=== PATIENT | female | born 1945 | race Caucasian/White ===

== ENCOUNTER 2016-07-19 09:17 | Inpatient (IN) ==
--- NOTE | 2016-07-19 13:12 | Cardiology History & Physical ---
Date of Encounter: 07/19/16 Time of Encounter: 13:07 Assessment and Plan (1) PAF (paroxysmal atrial fibrillation) Current Visit: No Status: Acute Direct admission for sotalol therapy. Check BMP and magnesium. Last TTE 11/18/15- EF 60%, moderate LVH, indeterminate diastolic function. Bioprosthetic mitral valve with moderate mitral stenosis, Mild TR of tricuspid valve repair. Bioprosthetic aortic valve not well visualized. Moderate aortic stenosis. Mild aortic regurgitation. Mild MR. Baseline EKG shows atrial fibrillation rate controlled QT/QTc, 386/423, QRS 106. If labs are ok will start sotalol as planned. On coumadin therapy. Check INR. Plan for DCCV after 5th dose if she has persistent afib. (2) VHD (valvular heart disease) Current Visit: No Status: Acute H/o aortic and mitral valve replacement with bioprosthetic valves and tricuspid valve repair one year ago at [facility]. See previous TTE above. (3) CAD (coronary artery disease) Current Visit: No Status: Chronic S/p PCI one year ago at [facility] per pt. Continue asa and statin. Metoprolol previously stopped d/t hypotension according to records. Denies chest pain. Qualifiers: Coronary Disease-Associated Artery/Lesion type: [place] artery [place] vs. transplanted heart: [place] heart Associated angina: angina presence unspecified Qualified Code(s): I25.10 - Atherosclerotic heart disease of [place] coronary artery without angina pectoris History of Present Illness Chief complaint: palpitations HPI: Ms. 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 She c/o recurrent palpitations. A recent device check showed multiple high heart rates despite adding cardizem. She was recommended to start sotalol if her kidney function and electrolytes are normal. Past Med Surg Social Fam HX - Past Medical History Medical history: atrial fibrillation, cancer, cardiomyopathy, CHF, coronary artery disease, diabetes, GI bleed, hyperlipidemia, malignancy, peripheral artery disease, thyroid disease, valvular heart disease Psychiatric history: anxiety - Past Surgical History Surgical History: angioplasty/stent, breast surgery, cancer surgery, carotid endarterectomy, cataract, colectomy, coronary bypass (CABG), heart valve replacement, hysterectomy, pacemaker/AICD, other - Social History Smoking Status: Former smoker Smokeless Tobacco Status: No Alcohol use: none Drug use: none - Family History Mother Adopted: No Family Member Ethnicity: Unknown Living Status: Hx Family Cardiac Disorders: Yes (NC) Hx Family Endocrine Disorder: Yes (DM) Father Living Status: Hx Family Cardiac Disorders: Yes Medications and Allergies Alprazolam [Xanax] 1 mg PO TID PRN 11/29/14 [History] Bupropion HCl [Wellbutrin] 75 mg PO BID 11/29/14 [History] Levothyroxine [Synthroid] 50 mcg PO 0630 11/29/14 [History] Pravastatin Sodium [Pravachol] 40 mg PO HS 11/29/14 [History] Aspirin Enteric Coated [Aspirin EC] 162 mg PO DAILY 11/17/15 [History] Benzonatate [Tessalon] 100 mg PO TID PRN 11/17/15 [History] Furosemide [Lasix] 40 mg PO BID 11/17/15 [History] Multivitamin [Multi-Day Vitamins] 1 each PO DAILY 11/17/15 [History] Ondansetron [Zofran] 8 mg PO Q6H PRN 11/17/15 [History] Oxycodone HCl 10 mg PO Q4H PRN 11/17/15 [History] Potassium Chloride [K-Tab ER] 10 meq PO BID 11/17/15 [History] Sennosides [Senna] 8.6 mg PO HS 11/17/15 [History] Digoxin [Lanoxin] 0.125 mg PO DAILY tablet 11/19/15 [Rx] Diltiazem HCl [Diltiazem 24Hr ER] 120 mg PO DAILY 07/19/16 [History] Gabapentin [Neurontin] 300 mg PO HS 07/19/16 [History] Isosorbide MONOnitrate [Isosorbide Mononitrate] 30 mg PO DAILY 07/19/16 [History ] Ropinirole [Requip] 1 mg PO HS 07/19/16 [History] Warfarin [Coumadin] 7.5 mg PO 1800 07/19/16 [History] Allergies ciprofloxacin [From Cipro] Allergy (Verified 11/29/14 17:30) Hives acetaminophen [From Percocet] Adverse Reaction (Verified 11/30/14 06:27) Gastrointestinal Upset All Systems Review: A 10-system review of systems was performed and is negative for pertinent findings except as documented above in the HPI. Physical Examination Vital Signs, Last 4 Hours Temp Pulse Resp BP Pulse Ox 07/19/16 12:40 80 07/19/16 12:21 97.9 F 87 16 129/79 99 General: Conversant, No Apparent Distress HEENT: Atraumatic, Normocephaly, Mucus Membranes Moist Neck: No JVD, Normal carotid pulses Cardiac: Other (irregularly irregular) Lungs: Normal Breath Sounds, No Wheeze, Rales, Rhonchi Neuro: Alert and responsive, No focal deficits noted Abdomen: Soft, Non-Tender Skin: No rashes noted on visualized skin Musculoskeletal: No Chest Wall Tenderness Extremities: No Clubbing, No Cyanosis, No Edema, Normal Pulses Results 07/19/16 13:42 07/19/16 13:42 - Imaging and Cardiology Echo: report reviewed - EKG Interpretation EKG results cardiology: personally reviewed (atrial fibrillation, QT/QTc, 386/ 423, QRS 106)
[2016-07-19 13:52] LABS: Basophils % 0.6 %; Eosinophils # 0.1 K/mcL (0.0-0.6); Eosinophils % 1.3 %; Hematocrit 37.6 % (35.3-44.9); Hemoglobin 10.9 g/dL (11.5-15.4); Immature Granulocytes % 0.3 % (0-4); Lymphocytes # 0.8 K/mcL (0.6-4.6); Lymphocytes % 11.4 %; Mean Corpuscular Hemoglobin 20.6 pg (28.0-33.3); Mean Corpuscular Volume 71.2 fL (83.0-100.0); Mean Platelet Volume 9.8 fL (9.4-12.4); Monocytes # 0.7 K/mcL (0.0-1.3); Monocytes % 9.3 %; Neutrophils # 5.5 K/mcL (1.6-8.9); Platelet Count 283 K/mcL (140-400); Red Blood Count 5.28 M/mcL (3.82-4.97); Red Cell Distribution Width 18.9 % (11.5-14.5); Segmented Neutrophils % 77.1 %
[2016-07-19] MEDS ORDERED: Benzonatate 100 MG CAPSULE PO PRN (13:52)
[2016-07-19] MEDS ORDERED: Ondansetron ODT 4 MG TAB.RAPDIS PO PRN (13:52)
[2016-07-19 13:59] LABS: INR 2.6; Prothrombin Time 28.6 Seconds (9.4-12.1)
[2016-07-19 14:05] LABS: BUN/Creatinine Ratio 43 (6-26); Blood Urea Nitrogen 35 mg/dL (7-20); Calcium 9.6 mg/dL (8.6-10.8); Carbon Dioxide 27 mEq/L (19-29); Chloride 104 mEq/L (98-109); Glucose 117 mg/dL (70-99); Osmolality,Calculated 297 (280-300); Potassium 3.6 mEq/L (3.5-4.5); Sodium 139 mEq/L (136-145); eGFR For African Americans > 60 (> 60); eGFR For Non-African Americans > 60 (> 60)
[2016-07-19] MEDS ORDERED: Naloxone 0.4 MG/ML INJ IVP PRN (14:52)
[2016-07-19] MEDS ORDERED: Ondansetron ODT 4 MG TAB.RAPDIS SL PRN ×2 (15:40→15:56)
[2016-07-19] MEDS: *HR* OxyCODONE Immed Rel 5 MG TABLET PO PRN (15:41)
[2016-07-19] MEDS: *HR* Warfarin 7.5 MG TABLET PO SCH (17:48)
[2016-07-19] MEDS: Furosemide 40 MG TABLET PO SCH (17:48)
[2016-07-19] MEDS ORDERED: Furosemide 40 MG TABLET PO SCH (21:00)
[2016-07-19] MEDS: Gabapentin 300 MG CAPSULE PO SCH (21:07)
[2016-07-19] MEDS: rOPINIRole 1 MG TABLET PO SCH (21:07)
[2016-07-19] MEDS: Sennosides 8.6 MG TABLET PO SCH (21:07)
[2016-07-19] MEDS: ALPRAZolam 1 MG TABLET PO PRN (21:10)
[2016-07-20 04:48] LABS: INR 2.9; Prothrombin Time 32.8 Seconds (9.4-12.1)
[2016-07-20] MEDS: Diltiazem CD (24hr) 120 MG CAPSULE PO SCH (07:23)
[2016-07-20] MEDS: Aspirin Enteric Coated 81 MG Tablet PO SCH (07:23)
[2016-07-20] MEDS: Furosemide 40 MG TABLET PO SCH ×2 (07:23→15:47)
[2016-07-20] MEDS: Multivit/Ca/Min/Fe/FA 1 TAB TABLET PO SCH (07:23)
[2016-07-20] MEDS: Isosorbide MONOnitrate (24 HR) 30 MG TAB.ER.24H PO SCH (07:23)
--- NOTE | 2016-07-20 08:26 | Electrocardiograph Report ---
[place] [address] Test Date: 2016-07-19 Pat Name: Abbey Monte Department: 110 Room: 2N03 Gender: F Treasury Assistant: MICHAEL : 1945 Requested By: Royce Hadley Order Number: [id number] Reading MD: Patel Broderick MD Measurements Intervals [place] Rate: 81 P: RI: 0 QRS: 40 QRSD: 106 T: 27 QT: 386 QTc: 423 Interpretive Statements ATRIAL FIBRILLATION NONSPECIFIC ST \T\ T-WAVE ABNORMALITY Electronically Signed On 07-20-2016 8:24:18 EDT by Patel Broderick MD
[2016-07-20] MEDS ORDERED: *HR* Digoxin 0.125 MG TABLET PO SCH (09:00)
--- NOTE | 2016-07-20 10:54 | Cardiology Progress Note ---
Date of Encounter: 07/20/16 Time of Encounter: 10:51 Assessment and Plan (1) PAF (paroxysmal atrial fibrillation) Current Visit: No Status: Acute Direct admission for sotalol therapy. BMP and magnesium ok. Last TTE 11/18/15- EF 60%, moderate LVH, indeterminate diastolic function. Bioprosthetic mitral valve with moderate mitral stenosis, Mild TR of tricuspid valve repair. Bioprosthetic aortic valve not well visualized. Moderate aortic stenosis. Mild aortic regurgitation. Mild MR. Baseline EKG shows atrial fibrillation rate controlled QT/QTc, 386/423, QRS 106. EKG 07/20/16 QT/QTc 386/423, QRS 106, HR 81 bpm, atrial paced. Underlying SR. Received 2 doses of Sotalol. Will require 5 doses with monitoring. Converted to SR over night with intermittent atrial and ventricular pacing. Avg HR76 bpm. On coumadin therapy. INR 2.9 (2) VHD (valvular heart disease) Current Visit: No Status: Acute H/o aortic and mitral valve replacement with bioprosthetic valves and tricuspid valve repair one year ago at [facility]. See previous TTE above. (3) CAD (coronary artery disease) Current Visit: No Status: Chronic S/p PCI one year ago at [facility] per pt. Continue asa and statin. Metoprolol previously stopped d/t hypotension according to records. Denies chest pain. Qualifiers: Coronary Disease-Associated Artery/Lesion type: [place] artery [place] vs. transplanted heart: [place] heart Associated angina: angina presence unspecified Qualified Code(s): I25.10 - Atherosclerotic heart disease of [place] coronary artery without angina pectoris Discussion w patient/family: The assessment and plan as outlined above was discussed with the patient and/or family members who expressed understanding and agreement. All questions were answered. Thank you for involving us in the care of your patient. Please call with any questions. Subjective Principal diagnosis: 07/20/16 Interval history: No new complaints. Objective Vital Signs, Last 4 Hours Temp Pulse Resp BP 07/20/16 08:34 98.7 F 64 18 119/55 07/20/16 07:30 60 General: Conversant, No Apparent Distress HEENT: Atraumatic, Normocephaly, Mucus Membranes Moist Neck: No JVD, Normal carotid pulses Cardiac: Reg Rate and Rhythm, Normal S1 and S2, No Murmur, Other (atrial paced on telemetry.) Lungs: Normal Breath Sounds, No Wheeze, Rales, Rhonchi Neuro: Alert and responsive, No focal deficits noted Abdomen: Soft, Non-Tender Skin: No rashes noted on visualized skin Musculoskeletal: No Chest Wall Tenderness Extremities: No Clubbing, No Cyanosis, No Edema, Normal Pulses Results 07/19/16 13:42 07/19/16 13:42 Lab Results 07/19/16 07/19/16 07/19/16 13:42 13:42 13:42 WBC 7.1 Hgb 10.9 L Hct 37.6 Plt Count 283 INR 2.6 Sodium 139 Potassium 3.6 Chloride 104 Carbon Dioxide 27 BUN 35 H Creatinine 0.81 Glucose 117 H Calcium 9.6 Magnesium 2.0 07/20/16 04:40 WBC Hgb Hct Plt Count INR 2.9 Sodium Potassium Chloride Carbon Dioxide BUN Creatinine Glucose Calcium Magnesium - Imaging and Cardiology Echo: report reviewed - EKG Interpretation EKG results cardiology: personally reviewed, other (Atrial flutter to SR to atrial pacing.) - VTE Reasons for not Prescribing Prophylaxis: Not indicated-Anticoagulated or INR therapeutic Consult Discharge Plan - Plan Referrals: Geetha Maharaj, COMMERCIAL ILLUSTRATOR [Primary Care Provider] -
[2016-07-20] MEDS: *HR* OxyCODONE Immed Rel 5 MG TABLET PO PRN (15:46)
[2016-07-20] MEDS: *HR* Warfarin 7.5 MG TABLET PO SCH (16:51)
[2016-07-20] MEDS: Sennosides 8.6 MG TABLET PO SCH (21:26)
[2016-07-20] MEDS: ALPRAZolam 1 MG TABLET PO PRN (21:26)
[2016-07-20] MEDS: rOPINIRole 1 MG TABLET PO SCH (21:26)
[2016-07-20] MEDS: Gabapentin 300 MG CAPSULE PO SCH (21:27)
[2016-07-21 03:47] LABS: INR 2.8; Prothrombin Time 31.1 Seconds (9.4-12.1)
[2016-07-21] MEDS: Isosorbide MONOnitrate (24 HR) 30 MG TAB.ER.24H PO SCH (08:26)
[2016-07-21] MEDS: Aspirin Enteric Coated 81 MG Tablet PO SCH (08:26)
[2016-07-21] MEDS: Furosemide 40 MG TABLET PO SCH ×2 (08:26→16:57)
[2016-07-21] MEDS: Diltiazem CD (24hr) 120 MG CAPSULE PO SCH (08:26)
[2016-07-21] MEDS: Multivit/Ca/Min/Fe/FA 1 TAB TABLET PO SCH (08:27)
--- NOTE | 2016-07-21 09:11 | Electrocardiograph Report ---
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
[2016-07-21 10:28] LABS: BUN/Creatinine Ratio 50 (6-26); Calcium 8.9 mg/dL (8.6-10.8); Carbon Dioxide 24 mEq/L (19-29); Chloride 101 mEq/L (98-109); Glucose 227 mg/dL (70-99); Magnesium 1.9 mg/dL (1.6-2.6); Osmolality,Calculated 302 (280-300); Potassium 3.4 mEq/L (3.5-4.5); Sodium 135 mEq/L (136-145); eGFR For African Americans > 60 (> 60); eGFR For Non-African Americans 50 (> 60)
[2016-07-21 10:29] LABS: Blood Urea Nitrogen 55 mg/dL (7-20)
[2016-07-21] MEDS: *HR* OxyCODONE Immed Rel 5 MG TABLET PO PRN (11:16)
--- NOTE | 2016-07-21 11:18 | Event Note ---
Date of Encounter: 07/21/16 Time of Encounter: 09:45 - Cardiology Event Note Telemetry review shows two episodes of rate controlled atrial fibrillation, otherwise she is atrial to AV paced on telemetry. Appears to SR underlying. Pt ambulated for [address] with HR increased from 60 bpm to 85 bpm. She remained atrial paced. A device check was completed and it shows three atrial high rates yesterday. I will review further with Dr. Drummond to assess underlying rhythm. Possible discharge later today vs medication adjustment. EKG this morning shows atrial pacing. Underlying rhythm is irregular, possible atrial fibrillation.
--- NOTE | 2016-07-21 11:58 | Cardiology Progress Note ---
Date of Encounter: 07/21/16 Time of Encounter: 11:56 Assessment and Plan (1) PAF (paroxysmal atrial fibrillation) Current Visit: No Status: Acute Direct admission for sotalol therapy. Last TTE 11/18/15- EF 60%, moderate LVH, indeterminate diastolic function. Bioprosthetic mitral valve with moderate mitral stenosis, Mild TR of tricuspid valve repair. Bioprosthetic aortic valve not well visualized. Moderate aortic stenosis. Mild aortic regurgitation. Mild MR. Baseline EKG shows atrial fibrillation rate controlled QT/QTc, 386/423, QRS 106. EKG 07/20/16 QT/QTc 386/423, QRS 106, HR 81 bpm, atrial paced. Underlying SR. EKG 07/21/16 QT/QTc 440/445, QRS 105, HR 62 bpm, atrial paced, Irregular, possible afib. Received 4 doses of Sotalol. Device check completed to asses underlying rhythm. PAF seen over last 24 hours. Pt admits to palpitations. Avg hr 89 bpm over 24 hours. Predominantly atrial paced. Discussed with Dr. Drummond, we will increase Sotalol to 120 mg Q 12 hr and check device check in am. Digoxin discontinued. On coumadin therapy. INR 2.8 Replace potassium and magnesium. Will re-check in am. (2) VHD (valvular heart disease) Current Visit: No Status: Acute H/o aortic and mitral valve replacement with bioprosthetic valves and tricuspid valve repair one year ago at [facility]. See previous TTE above. (3) CAD (coronary artery disease) Current Visit: No Status: Chronic S/p PCI one year ago at [facility] per pt. Continue asa and statin. Metoprolol previously stopped d/t hypotension according to records. Denies chest pain. Qualifiers: Coronary Disease-Associated Artery/Lesion type: [place] artery [place] vs. transplanted heart: [place] heart Associated angina: angina presence unspecified Qualified Code(s): I25.10 - Atherosclerotic heart disease of [place] coronary artery without angina pectoris (4) Hypotension Current Visit: Yes Status: Acute C/o feeling tired. B/p 85/56, recheck showed b/p at 101/60. Denies dizziness. Decrease lasix to 20 mg BID from 40 mg BID. Appears to be dry on exam. If b/p drops again we will give IV fluid. Qualifiers: Hypotension type: hypotension due to drug Qualified Code(s): I95.2 - Hypotension due to drugs Discussion w patient/family: The assessment and plan as outlined above was discussed with the patient and/or family members who expressed understanding and agreement. All questions were answered. Thank you for involving us in the care of your patient. Please call with any questions. Subjective Principal diagnosis: 07/20/16 Interval history: C/o leg cramps last night. Admits to palpitations overnight with afib. Objective Vital Signs, Last 4 Hours Temp Pulse Resp BP Pulse Ox 07/21/16 11:35 97.5 F L 60 16 100/38 96 07/21/16 11:17 68 07/21/16 08:29 62 General: Conversant, No Apparent Distress HEENT: Atraumatic, Normocephaly, Mucus Membranes Moist Neck: No JVD, Normal carotid pulses Cardiac: Reg Rate and Rhythm, Normal S1 and S2, No Murmur Lungs: Normal Breath Sounds, No Wheeze, Rales, Rhonchi Neuro: Alert and responsive, No focal deficits noted Abdomen: Soft, Non-Tender Skin: No rashes noted on visualized skin Musculoskeletal: No Chest Wall Tenderness Extremities: No Clubbing, No Cyanosis, No Edema, Normal Pulses Results 07/19/16 13:42 07/21/16 10:11 Lab Results 07/21/16 07/21/16 03:30 10:11 INR 2.8 Sodium 135 L Potassium 3.4 L Chloride 101 Carbon Dioxide 24 BUN 55 H D Creatinine 1.09 Glucose 227 H Calcium 8.9 Magnesium 1.9 - EKG Interpretation EKG results cardiology: personally reviewed - VTE Reasons for not Prescribing Prophylaxis: Not indicated-Anticoagulated or INR therapeutic Consult Discharge Plan - Plan Referrals: Geetha Maharaj MEMORIAL MARKER DESIGNER [Primary Care Provider] - 07/23/16 1:00 pm (YOUR APPOINTMENT TIME HAS CHANGED FROM 10:00AM TO 1:00PM)
[2016-07-21] MEDS ORDERED: Magnesium Sulfate 2 GM in D5% in Water 100 ML IVPB ONE (13:06)
[2016-07-21] MEDS: *HR* Warfarin 7.5 MG TABLET PO SCH (16:58)
[2016-07-21] MEDS: Sennosides 8.6 MG TABLET PO SCH (20:09)
[2016-07-21] MEDS: rOPINIRole 1 MG TABLET PO SCH (20:10)
[2016-07-21] MEDS: Gabapentin 300 MG CAPSULE PO SCH (20:10)
--- NOTE | 2016-07-21 21:03 | Electrocardiograph Report ---
[place] [address] Test Date: 2016-07-21 Pat Name: Abbey Monte Department: 110 Room: 2N03 Gender: F Remote Sensing Program Manager: FARRAH : 1945 Requested By: Royce Hadley Order Number: [id number] Reading MD: Kel Amato MD Measurements Intervals [place] Rate: 62 P: 236 NC: 257 QRS: 71 QRSD: 105 T: 131 QT: 440 QTc: 445 Interpretive Statements ELECTRONIC ATRIAL PACEMAKER FIRST DEGREE AV BLOCK PROBABLE LEFT VENTRICULAR HYPERTROPHY NONSPECIFIC ST \T\ T WAVE ABNORMALITIES (POSSIBLY SECONDARY TO LVH) Electronically Signed On 07-21-2016 21:02:17 EDT by Kel Amato MD
[2016-07-21] MEDS: ALPRAZolam 1 MG TABLET PO PRN (21:59)
[2016-07-22 05:21] LABS: BUN/Creatinine Ratio 71 (6-26); Blood Urea Nitrogen 59 mg/dL (7-20); Calcium 8.7 mg/dL (8.6-10.8); Carbon Dioxide 23 mEq/L (19-29); Chloride 104 mEq/L (98-109); Glucose 124 mg/dL (70-99); Magnesium 2.2 mg/dL (1.6-2.6); Osmolality,Calculated 300 (280-300); Potassium 3.7 mEq/L (3.5-4.5); Sodium 136 mEq/L (136-145); eGFR For African Americans > 60 (> 60); eGFR For Non-African Americans > 60 (> 60)
[2016-07-22] MEDS: Diltiazem CD (24hr) 120 MG CAPSULE PO SCH (09:25)
[2016-07-22] MEDS: Aspirin Enteric Coated 81 MG Tablet PO SCH (09:25)
[2016-07-22] MEDS: Furosemide 40 MG TABLET PO SCH (09:26)
[2016-07-22] MEDS: Isosorbide MONOnitrate (24 HR) 30 MG TAB.ER.24H PO SCH (09:26)
[2016-07-22] MEDS: Multivit/Ca/Min/Fe/FA 1 TAB TABLET PO SCH (09:27)
[2016-07-22] MEDS: *HR* OxyCODONE Immed Rel 5 MG TABLET PO PRN (09:36)
--- NOTE | 2016-07-22 11:20 | Discharge Summary ---
Date of Encounter: 07/21/16 Time of Encounter: 08:30 - Discharge Diagnosis (1) Atrial fibrillation Priority: Primary Status: Chronic Comments: Per cardiololgy: -Status post direct admission for sotalol administration. Qualifiers: Atrial fibrillation type: paroxysmal Qualified Code(s): I48.0 - Paroxysmal atrial fibrillation - Discharge Medications Prescriptions: Diltiazem CD (24hr) [Cardizem CD] 120 mg PO DAILY #30 cap.er.24h Sotalol [Betapace] 120 mg PO Q12H #60 tablet Home Medications: Alprazolam [Xanax] 1 mg PO TID PRN 11/29/14 [History] Bupropion HCl [Wellbutrin] 75 mg PO BID 11/29/14 [History] Pravastatin Sodium [Pravachol] 40 mg PO HS 11/29/14 [History] Benzonatate [Tessalon] 100 mg PO TID PRN 11/17/15 [History] Furosemide [Lasix] 40 mg PO BID 11/17/15 [History] Multivitamin [Multi-Day Vitamins] 1 each PO DAILY 11/17/15 [History] Ondansetron [Zofran] 8 mg PO Q6H PRN 11/17/15 [History] Potassium Chloride [K-Tab ER] 10 meq PO BID 11/17/15 [History] Sennosides [Senna] 8.6 mg PO HS 11/17/15 [History] Gabapentin [Neurontin] 300 mg PO HS 07/19/16 [History] Isosorbide MONOnitrate (24 HR) [Imdur] 15 mg PO DAILY 07/19/16 [History] Levothyroxine [Synthroid] 75 mcg PO 0630 07/19/16 [History] OxyCODONE Immed Rel [Roxicodone 5 MG] 10 mg PO Q6HR PRN 07/19/16 [History] Ropinirole [Requip] 1 mg PO HS 07/19/16 [History] Warfarin [Coumadin] 7.5 mg PO 1800 07/19/16 [History] Aspirin Enteric Coated [Aspirin EC] 81 mg PO DAILY tablet. 07/22/16 [Rx] Diltiazem CD (24hr) [Cardizem CD] 120 mg PO DAILY #30 cap.er.24h 07/22/16 [Rx] Sotalol [Betapace] 120 mg PO Q12H #60 tablet 07/22/16 [Rx] Allergies/Adverse Reactions: Allergies ciprofloxacin [From Cipro] Allergy (Verified 11/29/14 17:30) Hives acetaminophen [From Percocet] Adverse Reaction (Verified 11/30/14 06:27) Gastrointestinal Upset Procedures/tests Complete & Pending: Procedures Performed prior 72 hours Category Date Time Status EKG [ECG 12 lead ECG] [ECG] AM 0600 Y 07/20/16 06:00 Completed EKG [ECG 12 lead ECG] [ECG] AM 0600 Y 07/21/16 06:00 Completed EKG [ECG 12 lead ECG] [ECG] Routine Y 07/21/16 08:35 Completed EKG [ECG 12 lead ECG] [ECG] Stat Y 07/19/16 13:14 Completed Date of admission: 07/19/16 11:31 Primary care physician: Geetha Maharaj CNP Consults: 07/19/16 13:53 Consult to Invasive Line Access Team [CONS] Routine Reason for Consult: LIMITED ACCESS Line Type: EPIV 07/21/16 15:49 Consult to Commercial Sales Consultant [CONS] Routine Reason for SW Consult: Power of floor coverings salesperson papers. Discharging clinician: Gato Mcclain Anticipated date of discharge: 07/22/16 - Patient Status Disposition: Home, Self-Care Condition: Good Functional capacity at discharge: independent ambulation Overall status at discharge: patient is back to baseline - Discharge Instructions Follow Up With: Ammon London MD [Partnered Physician] - 08/11/16 11:30 am Geetha Maharaj CNP [Primary Care Provider] - 07/23/16 1:00 pm (YOUR APPOINTMENT TIME HAS CHANGED FROM 10:00AM TO 1:00PM) - Diet and Activity Activity: increase activity as tolerated Diet: low fat, low cholesterol - Hospital Course Hospital course: Ms. Monte is a 70 year old female was admitted as direct admission for sotalol initation for symptomatic paroxysmal atrial fibrillation. During hospital stay, paceamker interrogated which showed brief episodes of a.fib with subsequent increase of sotalol 120mg po q12 hours. Repeat pacer check shows no further recurrence of paroxsymal a.fib. Remains atrial paced. Pateint asymptomatic overnight. Most recent QT/QTC 440/445ms and repeat ECG with QT/QTC 457/465ms. Digoxin was discontinued. Remains on coumadin for anticoagulation. Followed by [facility]. Discussed and reviewed with . Prepping for discharge home today in stable condition. - Time Spent with Patient Total time spent providing and/or coordinating discharge services: Less than 30 minutes Physical Examination Vital Signs, Last 4 Hours Pulse Resp BP Pulse Ox 07/22/16 10:49 60 95 07/22/16 09:38 62 16 97 07/22/16 07:37 62 16 114/46 99 General: Conversant, No Apparent Distress HEENT: Atraumatic, Normocephaly, Mucus Membranes Moist Neck: No JVD, Normal carotid pulses Cardiac: Reg Rate and Rhythm, Normal S1 and S2, No Murmur Lungs: Normal Breath Sounds, No Wheeze, Rales, Rhonchi Neuro: Alert and responsive, No focal deficits noted Abdomen: Soft, Non-Tender Skin: No rashes noted on visualized skin Musculoskeletal: No Chest Wall Tenderness Extremities: No Clubbing, No Cyanosis, No Edema, Normal Pulses - VTE Reasons for not Prescribing Prophylaxis: Not indicated-Anticoagulated or INR therapeutic
[2016-07-22 11:41] VITALS: BP 107/49
--- NOTE | 2016-07-22 20:05 | Electrocardiograph Report ---
[place] [id number] Test Date: 2016-07-22 Pat Name: Abbey Monte Department: 110 Room: 2N03 Gender: F Sales Intern: FARHAT : 1945 Requested By: Marcelle Drummond Order Number: [id number] Reading MD: Kel Amato MD Measurements Intervals [place] Rate: 63 P: 253 MN: 308 QRS: 77 QRSD: 104 T: 105 QT: 457 QTc: 465 Interpretive Statements ELECTRONIC ATRIAL PACEMAKER FIRST DEGREE AV BLOCK PROBABLE LEFT VENTRICULAR HYPERTROPHY POOR R-WAVE PROGRESSION NONSPECIFIC ST \T\ T WAVE ABNORMALITIES (POSSIBLY SECONDARY TO LVH) PROLONGED QT INTERVAL Electronically Signed On 07-22-2016 20:03:49 EDT by Kel Amato MD
== END 2016-07-22 12:55 | disposition home or self-care (01) | DRG 309 ==
LOC: 2NNU 11:31
PROVIDERS: ADMIT Internal Medicine; ATTEND Internal Medicine

== ENCOUNTER 2016-08-04 14:27 | Observation (INO) ==
[2016-08-04 15:29] LABS: ABG Base Excess 2.6 mEq/L (-2.0 to 3.0); ABG HCO3 26.1 mEQ/L (21-27); ABG Oxygen Saturation 100 % (95-98); ABG PCO2 35 mmHg (35-45); ABG PH 7.48 pH Units (7.32-7.45); ABG PO2 484 mmHg (85-104); ABG TCO2 27.2 mEq/L (20-26)
[2016-08-04 15:30] LABS: Blood Gas FiO2 100 %
--- NOTE | 2016-08-04 15:41 | Emergency Department Note ---
START Narrative - START START: I examined this patient and my medical decision-making was reviewed with the HUMAN RESOURCE ASSISTANT/PA/Advanced Practice Nurse/Resident Physician. I agree with the documented findings, disposition and treatment plan as described except to the extent set forth below. I did see the patient and spoke with her and she is currently on BiPAP with 100 % oxygen saturation so this will be decreased to a facemask to see if she is still able to tolerate that, she does have increased confusion according to her daughter and she is on Coumadin and has severe headache yesterday. Head CT will be done. She also does have chest pain which radiates back to both shoulder blades and in conjunction with confusion and a CTA of the chest will be done looking for pulmonary embolism or aortic dissection. Additional labs are pending. The patient will be watched closely here in the pulse oximeter and hall monitor. I did listen to her lungs with to have bibasilar fine crackles and apices are clear. No wheezing. Heart is regular without murmur. She does have 2 valves replaced 1540
[2016-08-04 16:36] LABS: Basophils % 0.7 %; Eosinophils # 0.1 K/mcL (0.0-0.6); Hemoglobin 9.9 g/dL (11.5-15.4); Immature Granulocytes % 0.5 % (0-4); Lymphocytes # 0.9 K/mcL (0.6-4.6); Mean Corpuscular HGB Conc 28.3 g/dL (31.6-35.5); Mean Corpuscular Hemoglobin 20.2 pg (28.0-33.3); Mean Corpuscular Volume 71.4 fL (83.0-100.0); Mean Platelet Volume 9.4 fL (9.4-12.4); Monocytes # 0.6 K/mcL (0.0-1.3); Monocytes % 9.7 %; Neutrophils # 4.3 K/mcL (1.6-8.9); Platelet Count 242 K/mcL (140-400); Red Cell Distribution Width 18.3 % (11.5-14.5); Segmented Neutrophils % 72.1 %
[2016-08-04 16:37] LABS: INR 2.6; Prothrombin Time 28.8 Seconds (9.4-12.1)
--- NOTE | 2016-08-04 16:38 | Emergency Department Note ---
Disposition Clinical Impression: CHF exacerbation Qualifiers: Congestive heart failure type: diastolic Qualified Code(s): I50.33 - Acute on chronic diastolic (congestive) heart failure CAD (coronary artery disease) Qualifiers: Coronary Disease-Associated Artery/Lesion type: unspecified vessel or lesion type [place] vs. transplanted heart: [place] heart Associated angina: with unstable angina Qualified Code(s): I25.110 - Atherosclerotic heart disease of [place] coronary artery with unstable angina pectoris Atrial fibrillation Qualifiers: Atrial fibrillation type: paroxysmal Qualified Code(s): I48.0 - Paroxysmal atrial fibrillation Disposition: Admitted As Inpatient Referrals: Geetha Maharaj CNP [Primary Care Provider] - Forms: ED Satisfaction Letter Chest Pain HPI - General Chief Complaint: ED Chest Pain Stated Complaint: chest pain Time Seen by Provider: 08/04/16 14:56 Source: patient Limitations: no limitations - History of Present Illness HPI Narrative: 62-year-old female presents with chief complaint of chest pain. Patient's chest pain 1 week ago is intermittent and radiates to back and left shoulder. Patient has a history valve replacement 2 which are pig valve three years back. She has history of afib as well. 3 weeks ago patient was admitted for CVA and then for atrial fibrillation where she was placed on sotalol. She was told by her fresh meat grader to stop this medication and come to the ER. She is on aspirin, imdur, cardizem, statin at home. She does not report her chest pain worsening with breathing. SHe denies taking nitrogycerin. She also reports intermittent blue fingers and toes which has been going on since her valve replacement. Severity scale (1-10): 6 - Related Data Home Medications Medication Instructions Recorded Confirmed Alprazolam [Xanax] 1 mg PO TID 11/29/14 08/04/16 Bupropion HCl [Wellbutrin] 75 mg PO BID 11/29/14 08/04/16 Pravastatin Sodium [Pravachol] 40 mg PO HS 11/29/14 08/04/16 Benzonatate [Tessalon] 100 mg PO TID PRN 11/17/15 08/04/16 Furosemide [Lasix] 40 mg PO BID 11/17/15 08/04/16 Multivitamin [Multi-Day Vitamins] 1 each PO DAILY 11/17/15 08/04/16 Ondansetron [Zofran] 8 mg PO Q6H PRN 11/17/15 08/04/16 Potassium Chloride [K-Tab ER] 10 meq PO BID 11/17/15 08/04/16 Sennosides [Senna] 8.6 mg PO HS 11/17/15 08/04/16 Gabapentin [Neurontin] 300 mg PO HS 07/19/16 08/04/16 Isosorbide MONOnitrate (24 HR) 15 mg PO DAILY 07/19/16 08/04/16 [Imdur] Levothyroxine [Synthroid] 75 mcg PO 0630 07/19/16 08/04/16 OxyCODONE Immed Rel [Roxicodone 5 10 mg PO Q6HR PRN 07/19/16 08/04/16 MG] Ropinirole [Requip] 1 mg PO HS 07/19/16 08/04/16 Warfarin [Coumadin] 7.5 mg PO 1800 07/19/16 08/04/16 Previous Rx's Medication Instructions Recorded Aspirin Enteric Coated [Aspirin EC] 81 mg PO DAILY tablet. 07/22/16 Diltiazem CD (24hr) [Cardizem CD] 120 mg PO DAILY #30 cap.er.24h 07/22/16 Allergies Allergy/AdvReac Type Severity Reaction Status Date / Time ciprofloxacin [From Cipro] Allergy Hives Verified 08/04/16 14:48 acetaminophen [From Percocet] AdvReac Gastrointestinal Verified 08/04/16 14:48 Upset Constitutional: Reports: chills, weakness. Denies: fever Eyes: Denies: eye pain, eye discharge, vision change ENT ED: Reports: hearing loss Cardiovascular: Reports: chest pain, dyspnea on exertion. Denies: syncope Respiratory: Reports: dyspnea Gastrointestinal: Reports: diarrhea. Denies: abdominal pain, nausea, vomiting Genitourinary: Denies: dysuria, hematuria Musculoskeletal: Denies: back pain, neck pain Integumentary: Denies: rash Neurological: Reports: headache, weakness, confusion. Denies: numbness, paresthesias Psychiatric: Reports: anxiety, depression Chest Pain PMH - Past Medical History Medical history: Reports: atrial fibrillation, cancer, cardiomyopathy, CHF, coronary artery disease, diabetes, GI bleed, hyperlipidemia, malignancy, peripheral artery disease, thyroid disease, valvular heart disease Surgical history: Reports: angioplasty/stent, breast surgery, cancer surgery, carotid endarterectomy, cataract, colectomy, coronary bypass (CABG), heart valve replacement, hysterectomy, pacemaker/AICD, other Psychiatric history: Reports: anxiety - Social History Smoking Status: Former smoker Alcohol use: Reports: none Drug use: Reports: none Physical Exam - General Limitations: no limitations General appearance: alert, in no apparent distress - Head Head exam: atraumatic, normocephalic, normal inspection - Eye Eye exam: Present: PERRL, EOMI - Neck Neck exam: Present: normal inspection. Absent: tenderness - Chest Chest inspection: Present: normal inspection, symmetric chest wall rise - Respiratory Respiratory exam: Present: other (b/l basilar crackles ) - Cardiovascular Cardiovascular exam: Present: regular rate, normal rhythm, other (paced rhythm. ) - Abdominal Exam Abdominal exam: Present: soft, Non-Tender. Absent: tenderness, distention, guarding, rebound, rigidity - Extremities Exam Extremities exam: Present: other (1+ pitting edema b/l and blue fingertips and toes. delayed capillary refill. radial and pedal pulses +2/4 ) - Neurological Exam Neurological exam: Present: alert, oriented X3 - Psychiatric Psychiatric exam: Present: normal affect, normal mood - Skin Skin exam: Present: warm, dry, intact Course Course Narrative: 70 y/o female presented with CP. Hx of afib, bradycardia, coronary artery disease, s/p pci, history of aortic and bioprosthetic valve and tricuspid valve repair with pacemaker. she was admitted last month to be started on sotalol as Cardizem and did not control her afib. She was 83% on room air and initially started on bipap and transitioned to 4L oxygen which improved her saturations above 90%. ABG showed pH 7.48 with pCO2 35. CXR shows pulmonary venous congestion. WBC 6. Troponin was 0.01. BNP 657. CP was described as midsternal radiating to shoulder and back. She also has severe headache, confusion and blurry vision that started last week as well. She denied head truama/falls. CT head was ordered and CT chest angio to evaluate for dissection. - Reevaluation(s) Reevaluation #1: Due to elevated BNP, CXR showing pulmonary venous congestion patient Nitropaste and [address] had and CTA were without acute changes. Will admit patient for overnight observation. Reevaluation #2: Patient accepted by Dr. Gallardo to tele unit. Time: 20:40 Vital Signs Temperature 97.4 F L 08/04/16 14:37 Pulse Rate 61 08/04/16 14:37 Respiratory Rate 18 08/04/16 14:37 Blood Pressure 120/56 08/04/16 14:37 O2 Sat by Pulse Oximetry 83 08/04/16 14:37 Temperature 97.4 F L 08/04/16 14:37 Pulse Rate 61 08/04/16 15:07 Respiratory Rate 18 08/04/16 15:07 Blood Pressure 120/56 08/04/16 15:07 O2 Sat by Pulse Oximetry 100 08/04/16 15:07 Oxygen Delivery Oxygen Delivery Bipap Chest Pain - Lab Data Result diagrams: 08/04/16 16:12 08/04/16 16:12 Lab Results 08/04/16 08/04/16 08/04/16 Range/Units 15:18 16:12 16:12 WBC 6.0 (4.3-11.1) K/mcL RBC 4.90 (3.82-4.97) M/mcL Hgb 9.9 L (11.5-15.4) g/dL Hct 35.0 L (35.3-44.9) % MCV 71.4 L (83.0-100.0) fL MCH 20.2 L (28.0-33.3) pg MCHC 28.3 L (31.6-35.5) g/dL RDW 18.3 H (11.5-14.5) % Plt Count 242 (140-400) K/mcL MPV 9.4 (9.4-12.4) fL Immature Gran % 0.5 (0-4) % Seg Neutrophils % 72.1 % Lymphocytes % 15.0 % Monocytes % 9.7 % Eosinophils % 2.0 % Basophils % 0.7 % Neutrophils # 4.3 (1.6-8.9) K/mcL Lymphocytes # 0.9 (0.6-4.6) K/mcL Monocytes # 0.6 (0.0-1.3) K/mcL Eosinophils # 0.1 (0.0-0.6) K/mcL Basophils # 0.0 (0.0-0.2) K/mcL Polychromasia 1+ A (Not Present) Hypochromasia Present A (Not Present) PT 28.8 H (9.4-12.1) Seconds INR 2.6 APTT 37.2 H (26.0-36.0) Seconds ABG pH 7.48 H (7.32-7.45) pH Units ABG pCO2 35 (35-45) mmHg ABG pO2 484 H (85-104) mmHg ABG HCO3 26.1 (21-27) mEQ/L ABG Total CO2 27.2 H (20-26) mEq/L ABG O2 Saturation 100 H (95-98) % ABG Base Excess 2.6 (-2.0 to 3.0) mEq/L Blood Gas Modality BIPAP Inspired O2 100 % Sodium (136-145) mEq/L Potassium (3.5-4.5) mEq/L Chloride (98-109) mEq/L Carbon Dioxide (19-29) mEq/L BUN (7-20) mg/dL Creatinine (0.57-1.11) mg/dL Est GFR ( Amer) (> 60) Est GFR (Non-Af Amer) (> 60) BUN/Creatinine Ratio (6-26) Glucose (70-99) mg/dL Calculated Osmolality (280-300) Calcium (8.6-10.8) mg/dL Troponin I (0-0.03) ng/mL B-Natriuretic Peptide (0-100) pg/mL 08/04/16 08/04/16 08/04/16 Range/Units 16:12 16:12 16:12 WBC (4.3-11.1) K/mcL RBC (3.82-4.97) M/mcL Hgb (11.5-15.4) g/dL Hct (35.3-44.9) % MCV (83.0-100.0) fL MCH (28.0-33.3) pg MCHC (31.6-35.5) g/dL RDW (11.5-14.5) % Plt Count (140-400) K/mcL MPV (9.4-12.4) fL Immature Gran % (0-4) % Seg Neutrophils % % Lymphocytes % % Monocytes % % Eosinophils % % Basophils % % Neutrophils # (1.6-8.9) K/mcL Lymphocytes # (0.6-4.6) K/mcL Monocytes # (0.0-1.3) K/mcL Eosinophils # (0.0-0.6) K/mcL Basophils # (0.0-0.2) K/mcL Polychromasia (Not Present) Hypochromasia (Not Present) PT (9.4-12.1) Seconds INR APTT (26.0-36.0) Seconds ABG pH (7.32-7.45) pH Units ABG pCO2 (35-45) mmHg ABG pO2 (85-104) mmHg ABG HCO3 (21-27) mEQ/L ABG Total CO2 (20-26) mEq/L ABG O2 Saturation (95-98) % ABG Base Excess (-2.0 to 3.0) mEq/L Blood Gas Modality Inspired O2 % Sodium 139 (136-145) mEq/L Potassium 3.7 (3.5-4.5) mEq/L Chloride 103 (98-109) mEq/L Carbon Dioxide 25 (19-29) mEq/L BUN 40 H (7-20) mg/dL Creatinine 0.98 (0.57-1.11) mg/dL Est GFR ( Amer) > 60 (> 60) Est GFR (Non-Af Amer) 56 L (> 60) BUN/Creatinine Ratio 41 H (6-26) Glucose 118 H (70-99) mg/dL Calculated Osmolality 299 (280-300) Calcium 9.4 (8.6-10.8) mg/dL Troponin I 0.01 (0-0.03) ng/mL B-Natriuretic Peptide 657 H (0-100) pg/mL - EKG Data EKG results narrative: sinus rhythm, atrial pacer, rate 62, right axis deviation, no st segment elevation
[2016-08-04 16:40] LABS: Activated Partial Thrombo Time 37.2 Seconds (26.0-36.0); BUN/Creatinine Ratio 41 (6-26); Blood Urea Nitrogen 40 mg/dL (7-20); Calcium 9.4 mg/dL (8.6-10.8); Carbon Dioxide 25 mEq/L (19-29); Chloride 103 mEq/L (98-109); Glucose 118 mg/dL (70-99); Osmolality,Calculated 299 (280-300); Potassium 3.7 mEq/L (3.5-4.5); Sodium 139 mEq/L (136-145); eGFR For African Americans > 60 (> 60); eGFR For Non-African Americans 56 (> 60)
[2016-08-04 16:57] LABS: Hypochromasia Present (Not Present); Polychromasia 1+ (Not Present)
[2016-08-04] MEDS ORDERED: Nitroglycerin 1 INCH/GM PACKET TP ONE (18:05)
[2016-08-04] MEDS ORDERED: Furosemide 40 MG/4 ML VIAL IVP ONE (18:06)
[2016-08-04] MEDS ORDERED: *HR* OxyCODONE Immed Rel 5 MG TABLET PO ONE (19:58)
--- NOTE | 2016-08-04 23:41 | Internal Med History&Physical ---
Date of Encounter: 08/04/16 Time of Encounter: 23:35 Assessment and Plan (1) Hypoxia Current visit: Yes Status: Acute she was seen with significant hypoxia on room air, she has no known history of COPD, her CXR however is suggestive of COPD(hyperinflated lung burch with chronic appearing findings, she is also a former smoker), and her CTA was unremarkable for pulmonary embolism we will manage conservatively, she will benefit from outpatient PFT's (2) Chest pain Current visit: Yes Status: Acute patient with a history of CAD comes in with chest pain with both typical and atypical features, symptoms are concerning for stable angina that odes not limit her activities, she is not open to a stress test ad wants to be discharged home in AM if her labs are normal, we will however check a 2D Echo for wall motion abnormality and if normal we will discharge her home for outpatient followup Qualifiers: Chest pain type: intercostal pain Qualified Code(s): R07.82 - Intercostal pain (3) Hypothyroidism Current visit: Yes Status: Chronic we will continue home medication Qualifiers: Hypothyroidism type: acquired Qualified Code(s): E03.9 - Hypothyroidism, unspecified (4) Atrial fibrillation Current visit: Yes Status: Chronic rate is controlled on diltiazem as she did not tolerate sotalol earlier, she is Coumadin for systemic anticoagulation with a therapeutic INR on presentation, we will continue that with daily INR monitoring Qualifiers: Atrial fibrillation type: paroxysmal Qualified Code(s): I48.0 - Paroxysmal atrial fibrillation (5) CAD (coronary artery disease) Current visit: Yes Status: Chronic will continue aspirin and simvastatin Qualifiers: Coronary Disease-Associated Artery/Lesion type: unspecified vessel or lesion type [place] vs. 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 Monte is a 70 year old female with hx of afib/coronary artery disease s/p pci, history of aortic bioprosthetic valve and tricuspid valve repair with pacemaker was sent here for chest pain. She reports a one week history of intermittent chest pain, located over the left side, sometimes pressure-like and other times sharp in character, the most severe episode has been 6/10. The pain radiates to her left shoulder and her back. It has no aggravating factors but is relieved with nitroglycerine, she reports that nothing triggers her pain and that it sometimes comes on at rest. She denies any associated shortness of breath, palpitations, lightheadedness or diaphoresis. Upon presentation in the ER of [facility], her pulse ox reading was reported as 83% on room air and initially started on bipap and transitioned to 4L oxygen which improved her saturations above 90%. ABG showed pH 7.48 with pCO2 35. CTA was unremarkable for pulmonary embolism, no infiltrates were noted. Past Med Surg Social Fam HX - Past Medical History Medical history: atrial fibrillation, cancer, cardiomyopathy, CHF, COPD, coronary artery disease, fibromyalgia, GI bleed, hyperlipidemia, malignancy, peripheral artery disease, thyroid disease, valvular heart disease Psychiatric history: anxiety - Past Surgical History Surgical History: angioplasty/stent, breast surgery, cancer surgery, carotid endarterectomy, cataract, cholecystectomy, colectomy, coronary bypass (CABG), heart valve replacement, hysterectomy, pacemaker/AICD, other - Social History Smoking Status: Former smoker Smokeless Tobacco Status: No Alcohol use: none Drug use: none - Family History Mother Adopted: No Family Member Ethnicity: Unknown Living Status: Hx Family Cardiac Disorders: Yes (NH) Hx Family Endocrine Disorder: Yes (DIABETES MELLITUS.) Father Living Status: Hx Family Cardiac Disorders: Yes Internal Medicine - H&P: Meds Alprazolam [Xanax] 1 mg PO TID 11/29/14 [History] Bupropion HCl [Wellbutrin] 75 mg PO BID 11/29/14 [History] Pravastatin Sodium [Pravachol] 40 mg PO HS 11/29/14 [History] Benzonatate [Tessalon] 100 mg PO TID PRN 11/17/15 [History] Furosemide [Lasix] 40 mg PO BID 11/17/15 [History] Multivitamin [Multi-Day Vitamins] 1 each PO DAILY 11/17/15 [History] Ondansetron [Zofran] 8 mg PO Q6H PRN 11/17/15 [History] Potassium Chloride [K-Tab ER] 20 meq PO BID 11/17/15 [History] Sennosides [Senna] 8.6 mg PO HS 11/17/15 [History] Gabapentin [Neurontin] 300 mg PO HS 07/19/16 [History] Isosorbide MONOnitrate (24 HR) [Imdur] 15 mg PO DAILY 07/19/16 [History] Levothyroxine [Synthroid] 75 mcg PO 0630 07/19/16 [History] OxyCODONE Immed Rel [Roxicodone 5 MG] 10 mg PO Q6HR PRN 07/19/16 [History] Ropinirole [Requip] 1 mg PO HS 07/19/16 [History] Warfarin [Coumadin] 7.5 mg PO 1800 07/19/16 [History] Aspirin Enteric Coated [Aspirin EC] 81 mg PO DAILY tablet. 07/22/16 [Rx] Diltiazem CD (24hr) [Cardizem CD] 120 mg PO DAILY #30 cap.er.24h 07/22/16 [Rx] Allergies ciprofloxacin [From Cipro] Allergy (Verified 08/04/16 14:48) Hives acetaminophen [From Percocet] Adverse Reaction (Verified 08/04/16 14:48) Gastrointestinal Upset All Systems PM: Constitutional: Reports: chills, weakness. Denies: fever Eyes: Denies: eye pain, eye discharge, vision change ENT ED: Reports: hearing loss Cardiovascular: Reports: chest pain, dyspnea on exertion. Denies: syncope Respiratory: Reports: dyspnea Gastrointestinal: Reports: diarrhea. Denies: abdominal pain, nausea, vomiting Genitourinary: Denies: dysuria, hematuria Musculoskeletal: Denies: back pain, neck pain Integumentary: Denies: rash Neurological: Reports: headache, weakness, confusion. Denies: numbness, paresthesias Psychiatric: Reports: anxiety, depression - Constitutional Vitals: Temp Pulse Resp BP Pulse Ox 98.0 F 69 18 132/49 98 08/04/16 22:21 08/04/16 22:21 08/04/16 22:21 08/04/16 22:21 08/04/16 22:21 - General General appearance: Adult female, with thin habitus, she looks older than her stated age, alert, in no apparent distress - Head Head exam: atraumatic, normocephalic, normal inspection - Eye Eye exam: Present: PERRL, EOMI, anicteric sclera, normal conjunctiva - Neck Neck exam: Present: normal inspection. Absent: tenderness - Respiratory Respiratory exam: not in respiratory distress but had some coarse crackles at the ling base - Cardiovascular Cardiovascular exam: Present: regular rate, normal rhythm, trace ankle edema - Abdominal Exam Abdominal exam: Present: soft, Non-Tender. Absent: tenderness, distention, guarding, rebound, rigidity - Extremities Exam Extremities exam: Present: 1+ pitting edema b/l and blue fingertips and toes. delayed capillary refill. radial and pedal pulses +2/4 ) - Neurological Exam Neurological exam: Present: alert, oriented X3, non focal motor and sensory exam - Psychiatric Psychiatric exam: Present: normal affect, normal mood - Skin Skin exam: Present: warm, dry, intact Internal Med - H&P Results - Labs CBC & Chem 7: 08/04/16 16:12 08/04/16 16:12 - EKG Data -: EKG Interpreted by Myself EKG shows normal: sinus rhythm (paced rhythm) - Diagnostic Studies CT scan - chest Status: image reviewed by me CT scan - head Status: image reviewed by me
[2016-08-04] MEDS ORDERED: Naloxone 0.4 MG/ML INJ IVP PRN (23:42)
[2016-08-04] MEDS ORDERED: Benzonatate 100 MG CAPSULE PO PRN (23:44)
[2016-08-04] MEDS ORDERED: *HR* OxyCODONE Immed Rel 5 MG TABLET PO PRN (23:44)
[2016-08-04] MEDS ORDERED: Ondansetron ODT 4 MG TAB.RAPDIS PO PRN (23:44)
[2016-08-04] MEDS ORDERED: *HR* Warfarin 7.5 MG TABLET PO ONE (23:46)
[2016-08-05] MEDS: Gabapentin 300 MG CAPSULE PO SCH ×2 (01:18→20:20)
[2016-08-05] MEDS: rOPINIRole 1 MG TABLET PO SCH ×2 (01:18→20:20)
[2016-08-05] MEDS: ALPRAZolam 1 MG TABLET PO SCH ×5 (01:19→21:27)
[2016-08-05 06:21] LABS: Basophils % 0.6 %; Eosinophils # 0.2 K/mcL (0.0-0.6); Eosinophils % 2.4 %; Hematocrit 32.8 % (35.3-44.9); Hemoglobin 9.5 g/dL (11.5-15.4); Immature Granulocytes % 0.3 % (0-4); Lymphocytes # 1.3 K/mcL (0.6-4.6); Lymphocytes % 20.7 %; Mean Corpuscular Hemoglobin 20.5 pg (28.0-33.3); Mean Corpuscular Volume 70.8 fL (83.0-100.0); Mean Platelet Volume 10.5 fL (9.4-12.4); Monocytes # 0.6 K/mcL (0.0-1.3); Monocytes % 9.1 %; Neutrophils # 4.1 K/mcL (1.6-8.9); Platelet Count 233 K/mcL (140-400); Red Blood Count 4.63 M/mcL (3.82-4.97); Red Cell Distribution Width 17.9 % (11.5-14.5); Segmented Neutrophils % 66.9 %
[2016-08-05 06:24] LABS: INR 2.4; Prothrombin Time 26.1 Seconds (9.4-12.1)
[2016-08-05 06:37] LABS: BUN/Creatinine Ratio 48 (6-26); Blood Urea Nitrogen 48 mg/dL (7-20); Calcium 9.2 mg/dL (8.6-10.8); Carbon Dioxide 25 mEq/L (19-29); Chloride 101 mEq/L (98-109); Glucose 98 mg/dL (70-99); Magnesium 1.6 mg/dL (1.6-2.6); Osmolality,Calculated 297 (280-300); Potassium 3.9 mEq/L (3.5-4.5); Sodium 137 mEq/L (136-145); eGFR For African Americans > 60 (> 60); eGFR For Non-African Americans 55 (> 60)
[2016-08-05 06:38] LABS: Phosphorous 3.7 mg/dL (2.3-4.7)
[2016-08-05] MEDS: Furosemide 40 MG TABLET PO SCH ×2 (09:05→20:20)
[2016-08-05] MEDS: Multivit/Ca/Min/Fe/FA 1 TAB TABLET PO SCH (09:05)
[2016-08-05] MEDS: Aspirin Enteric Coated 81 MG Tablet PO SCH (09:05)
[2016-08-05] MEDS: Isosorbide MONOnitrate (24 HR) 30 MG TAB.ER.24H PO SCH (09:06)
[2016-08-05] MEDS: Diltiazem CD (24hr) 120 MG CAPSULE PO SCH (09:06)
--- NOTE | 2016-08-05 12:07 | Electrocardiograph Report ---
[place] [id number] Test Date: 2016-08-04 Pat Name: Abbey Monte Department: 104 Room: [facility] Gender: F Physician Intensivist: SCARLET : 1945 Requested By: Sarah See Order Number: [id number] Reading MD: Patel Broderick MD Measurements Intervals [place] Rate: 62 P: 249 GA: 275 QRS: 95 QRSD: 103 T: 3 QT: 476 QTc: 481 Interpretive Statements ELECTRONIC ATRIAL PACEMAKER BORDERLINE RIGHT AXIS DEVIATION Poor R wave progression Electronically Signed On 08-05-2016 12:05:40 EDT by Patel Broderick MD
--- NOTE | 2016-08-05 18:22 | Internal Med Progress Note ---
Date of Encounter: 08/05/16 Time of Encounter: 09:50 - Assessment and plan (1) Chest pain Current Visit: Yes Status: Acute Assessment and plan: Patient reports one-week history of left chest pain with radiation straight through to her back. She described it as being dull, and lasting approximately couple of minutes. She says that she does have the pain daily multiple times a day. She reports weakness and fatigue, shortness of breath. She denies nausea , vomiting, or diaphoresis. Patient has a history of valve replacement, pacemaker insertion, and cardiac stents 2 years ago at [facility]. She reports the initial chest pain began in 1996 where it has become worse over the last week. Patient was placed on sotalol 2 weeks ago while she was here and she states that [facility]. She reports approximately 10 pound weight loss and states that she feels like she has been dropped. She has since stopped taking the medication. Patient's lungs are clear posteriorly S1-S2 regular rate and rhythm, patient has no peripheral edema and pedal pulses are palpated bilaterally. Troponins were negative 2. Patient is slated for discharge tomorrow if there are no new findings and the echocardiogram area Echo was done today however is not resulted at this time. Telemetry overnight Vital signs per protocol Oxygen as needed Maintain home medications Qualifiers: Chest pain type: intercostal pain Qualified Code(s): R07.82 - Intercostal pain (2) Atrial fibrillation Current Visit: Yes Status: Chronic Assessment and plan: Patient was unable to take sotalol for rate control. She is currently controlled with diltiazem. She is anticoagulated with Coumadin. INR is therapeutic at this time. Maintain home medications Telemetry INR in the morning Qualifiers: Atrial fibrillation type: paroxysmal Qualified Code(s): I48.0 - Paroxysmal atrial fibrillation (3) CAD (coronary artery disease) Current Visit: Yes Status: Chronic Qualifiers: Coronary Disease-Associated Artery/Lesion type: unspecified vessel or lesion type [place] vs. transplanted heart: [place] heart Associated angina: with unstable angina Qualified Code(s): I25.110 - Atherosclerotic heart disease of [place] coronary artery with unstable angina pectoris (4) Hypothyroidism Current Visit: Yes Status: Chronic Assessment and plan: Chronic. Continue home medication. Qualifiers: Hypothyroidism type: acquired Qualified Code(s): E03.9 - Hypothyroidism, unspecified (5) Hypoxia Current Visit: Yes Status: Acute Assessment and plan: Patient is maintaining room air sats above 92% on 2 L. Supplemental oxygen as needed to maintain sats greater than 92% Monitor patient's condition. - Time Spent With Patient less than 15 minutes - Subjective Interval history: Patient reports onset of chest pain in 1996, worse over the last week. She says she is pain-free now. Pain is located in the left chest with radiation straight through to her back. She describes it as dull, lasts a couple of minutes. She says she has not multiple times daily. She reports weakness and fatigue with pain. Patient attributes her recent decline to being placed on sotalol 2 weeks ago. She says she has been downhill since that time and has felt drugged since taking the very first dose. Patient had valve replacements, pacer insertion and stents placed 2 years ago at [facility]. She reports a 10 pound weight loss since she started the sotalol 2 weeks ago. She has stopped taking it because it made her feel so badly. She tells me of "really bad" peripheral edema, however, there is none in her legs are exceptionally thin. - Constitutional Vitals: Temp Pulse Resp BP Pulse Ox 97.5 F L 60 16 119/67 98 08/05/16 17:17 08/05/16 17:17 08/05/16 17:17 08/05/16 17:17 08/05/16 17:17 General appearance: Present: A&O X 3, pleasant, underweight, answers questions appropriately - Head Head exam: Present: normal inspection - Eye Eye exam: Present: normal appearance, conjuntiva pink - Neck Neck exam general surgery: Present: normal inspection. Absent: lymphadenopathy , tenderness - Respiratory Respiratory exam: Present: CTAB - Cardiovascular Cardiovascular exam: Present: RRR, +S1, +S2 - Expanded Cardiovascular Exam Peripheral pulses: 1+: Dorsalis Pedis (L) PM, Dorsalis Pedis (R) PM - GI/Abdominal GI/Abdominal exam: Present: normal bowel sounds, soft. Absent: hepatomegaly, tenderness - Extremities Exam Extremities exam: Present: normal inspection, warm, radial pulses palpable and symetrical. Absent: mottling, pedal edema, tenderness - Neurological Exam Neurological exam: Present: alert, oriented X3, no focal deficits, strengths equal and symetr throughout. Absent: facial droop, speech deficit Internal Medicine: Result - Labs CBC & Chem 7: 08/05/16 05:05 08/05/16 05:05 Labs: Short CBC 08/05/16 Range/Units 05:05 WBC 6.2 (4.3-11.1) K/mcL Hgb 9.5 L (11.5-15.4) g/dL Hct 32.8 L (35.3-44.9) % Plt Count 233 (140-400) K/mcL Neutrophils # 4.1 (1.6-8.9) K/mcL BMP 08/05/16 05:05 Sodium 137 Potassium 3.9 Chloride 101 Carbon Dioxide 25 BUN 48 H Creatinine 1.00 Glucose 98 Calcium 9.2 Cardiac Enzymes 08/05/16 Range/Units 05:05 Troponin I 0.02 (0-0.03) ng/mL - ABG Interpretation ABG results: ABG ABG pH 7.48 pH Units (7.32-7.45) H 08/04/16 15:18 ABG pCO2 35 mmHg (35-45) 08/04/16 15:18 ABG pO2 484 mmHg (85-104) H 08/04/16 15:18 ABG O2 Saturation 100 % (95-98) H 08/04/16 15:18 PT/INR, D-dimer PT 26.1 Seconds (9.4-12.1) H 08/05/16 05:05 Consult Discharge Plan - Plan Referrals: Geetha Maharaj CNP [Primary Care Provider] - 08/12/16 1:00 pm
[2016-08-05] MEDS ORDERED: Sennosides 8.6 MG TABLET PO SCH (21:00)
[2016-08-06 05:48] LABS: Basophils # 0.1 K/mcL (0.0-0.2); Basophils % 0.7 %; Eosinophils # 0.2 K/mcL (0.0-0.6); Eosinophils % 2.2 %; Hemoglobin 9.6 g/dL (11.5-15.4); Immature Granulocytes % 0.3 % (0-4); Lymphocytes # 1.1 K/mcL (0.6-4.6); Lymphocytes % 15.6 %; Mean Corpuscular HGB Conc 29.1 g/dL (31.6-35.5); Mean Corpuscular Hemoglobin 20.6 pg (28.0-33.3); Mean Platelet Volume 10.1 fL (9.4-12.4); Monocytes # 0.6 K/mcL (0.0-1.3); Platelet Count 214 K/mcL (140-400); Red Blood Count 4.65 M/mcL (3.82-4.97); Red Cell Distribution Width 18.1 % (11.5-14.5); Segmented Neutrophils % 72.2 %
[2016-08-06 05:53] LABS: INR 2.3
[2016-08-06 06:00] LABS: BUN/Creatinine Ratio 58 (6-26); Blood Urea Nitrogen 60 mg/dL (7-20); Calcium 9.1 mg/dL (8.6-10.8); Carbon Dioxide 27 mEq/L (19-29); Chloride 101 mEq/L (98-109); Glucose 154 mg/dL (70-99); Osmolality,Calculated 304 (280-300); Potassium 3.9 mEq/L (3.5-4.5); Sodium 137 mEq/L (136-145); eGFR For African Americans > 60 (> 60); eGFR For Non-African Americans 53 (> 60)
[2016-08-06 06:25] LABS: Hypochromasia Present (Not Present); Platelet Estimate Normal (Normal)
[2016-08-06] MEDS: Multivit/Ca/Min/Fe/FA 1 TAB TABLET PO SCH (08:55)
[2016-08-06] MEDS: Aspirin Enteric Coated 81 MG Tablet PO SCH (08:56)
[2016-08-06] MEDS: Isosorbide MONOnitrate (24 HR) 30 MG TAB.ER.24H PO SCH (08:56)
[2016-08-06] MEDS: Furosemide 40 MG TABLET PO SCH (08:57)
[2016-08-06] MEDS: Diltiazem CD (24hr) 120 MG CAPSULE PO SCH (08:57)
[2016-08-06] MEDS: ALPRAZolam 1 MG TABLET PO SCH (08:59)
--- NOTE | 2016-08-06 13:01 | ECHO - Doppler Report ---
Echocardiogram Name: Abbey Monte Date of Study: 08/05/2016 Date: 1945 Ht: 60.0 in Medical Record#: [id number] Age: 70 Wt: 113.0 lb Gender: Female BSA: 1.46 Order #: [id number] Location: [facility] Room #: 3B Reading Physician: Noam Velazquez DO, MICHAEL, ZOHAIB CAMPBELL Credit Advisor: Sarah Andrea RDCS Ordering Physician: Anish Dai MD Primary Physician: Geetha Maharaj CNP Indications: WMA Impressions: LVEF 60%. Normal LV chamber size and function. Moderate concentric left ventricular hypertrophy. Indeterminate diastolic function. Atypical septal motion consistent with post-operative status. Mobile echodensity adherent to the inferolateral portion of the LV consistent with papillary muscle. Normal right ventricular structure and function. Severely dilated left atrium. Bioprosthetic AV appears well seated in the LVOT. Leaflets were not well visualized, but demonstrate normal function by Doppler. Bioprosthetic mitral valve with severe thickening and calcification along the annulus. No significant prosthetic mitral stenosis. Mean gradient 6 mmHg (HR 60 bpm), which is not significantly changed compared to prior reports. Mild pulmonary hypertension. Estimated RVSP is 37 mmHg. A device lead was visualized in the right atrium and right ventricle. Left Ventricular Wall Motion: Rest Echo Findings All wall segments showed normal motion. Findings: Study Quality * Technically adequate exam. ECG Findings * Atrial fibrillation. Left Ventricle * LVEF 60%. * Normal LV chamber size and function. * Moderate concentric left ventricular hypertrophy. * Indeterminate diastolic function. * Atypical septal motion consistent with post-operative status. * Mobile echodensity adherent to the inferolateral portion of the LV consistent with papillary muscle. Right Ventricle * Normal right ventricular structure and function. Left Atrium * Severely dilated left atrium. Right Atrium * Mildly dilated right atrium. Interatrial Septum * Interatrial septum not well evaluated. Aortic Valve * Bioprosthetic AV appears well seated in the LVOT. Leaflets were not well visualized, but demonstrate normal function by Doppler. * No aortic stenosis. * No aortic regurgitation. Mitral Valve * Bioprosthetic mitral valve with severe thickening and calcification along the annulus. * No mitral regurgitation. * No significant prosthetic mitral stenosis. Mean gradient 6 mmHg (HR 60 bpm), which is not significantly changed compared to prior reports. Tricuspid Valve * Normal tricuspid valve structure. * Mild tricuspid regurgitation. * Mild pulmonary hypertension. * Estimated RVSP is 37 mmHg. * Estimated RA pressure is 5 mmHg. Pulmonic Valve * Pulmonic valve not well visualized. * Trace pulmonic regurgitation. Aorta * Normally sized aortic root. Pericardium * The pericardium appears normal. IVC * Normal IVC dimensions and inspiratory collapse. Device lead * A device lead was visualized in the right atrium and right ventricle. Pulmonary Artery * Normal visualized portions of the main pulmonary artery. History Diabetes Hypercholesteremia Family History of CAD History of CAD/PTCA Pacer/ICD Implant Valvular Disease Valve Replacement AV Prosthesis Biologic MV Prosthesis Biologic 11/14/2015 a Previous Echo was performed. Measurements: BP: 111/ 62 2D Normal Values RVIDd: 2.66 cm <2.7 cm IVSd: 1.42 cm 0.6 - 1.0 cm LVIDd: 3.37 cm 3.7 - 5.6 cm LVPWd: 1.39 cm 0.6 - 1.1 cm LVIDs: 2.35 cm 1.5 - 3.6 cm AO: 2.00 cm < 4.0 cm LA: 5.00 cm 2.0 - 4.0cm %FS: 30.30 cm >25 % LVOT Diam: 1.85 cm LA volume: 86 Mitral Valve Peak Velocity 2.13 m/sec Mean Velocity:1.04 m/sec Peak Grad:18.00 mmHg Mean Grad:6.00 mmHg Pressure Time:65.00 msec Valve Area:3.38 cm2 Peak E:1.84 m/sec Peak E' Lat Phil:6.31 cm/s Peak E' Med Phil:3 cm/s E/E' Lat Ratio:29.2 E/E' Med Ratio:61.3 Tricuspid Valve TV Regurg Peak Grad: 30.00mmHg TV Regurg Peak Phil: 2.72m/sec Updated by Noam Velazquez DO, FACDalila, ZOHAIB CAMPBELL on 08/06/2016 12:50:53 PM electronically signed on 08/06/2016 12:55:54 PM with status of Final Wall Motion Weiss: 1=Normal, 2=Hypokinesis, 3=Akinesis, 4=Dyskinesis, 5=Aneurysmal, 6=Hyperkinetic, X=Not Visualized (Blank)=Missing
[2016-08-06 14:52] VITALS: BP 116/56
--- NOTE | 2016-08-06 15:09 | Discharge Summary ---
Date of Encounter: 08/06/16 Time of Encounter: 09:15 - Discharge Diagnosis (1) Chest pain Priority: Primary Status: Acute Comments: Patient denies chest pain today. She says she has not had any since last night. She was admitted for a one-week history of left chest pain with radiation straight through to her back. She described as being dull and lasting approximately couple of minutes multiple times a day. She says that she is weak and fatigued and short of breath. She denies nausea vomiting or diaphoresis. She attributes all of this to the beginning of sotalol about 2 weeks ago. She has an extensive cardiac history with her first bout of chest pain in 1996. 2 years ago she had valve valves replaced, pacemaker insertion, and cardiac stents at [facility]. Her chest x-ray was negative as were her troponins 2. Echocardiogram today shows normal left ventricular function, indeterminant diastolic dysfunction, atypical septal motion consistent with postoperative status. Patient is up and showered, with her curling iron plugged in, hairspray in hand when I walk in the room. She looks remarkably better than she did yesterday and immediately upon entering the room she asks if she can go home. She does not have any peripheral edema she is not requiring oxygen, she denies chest pain. S1 and S2, regular rate and rhythm, +2 peripheral pulses upper and lower extremities. Qualifiers: Chest pain type: intercostal pain Qualified Code(s): R07.82 - Intercostal pain (2) Atrial fibrillation Priority: Secondary Status: Chronic Comments: Patient started on sotalol and had adverse side effects. She said that she felt throughout and fatigued and was unable to take the medication. She is now on diltiazem. Continue at home. Qualifiers: Atrial fibrillation type: paroxysmal Qualified Code(s): I48.0 - Paroxysmal atrial fibrillation (3) CAD (coronary artery disease) Priority: Secondary Status: Chronic Comments: Patient already takes aspirin, statin, and a nitrate. She is currently on a calcium channel reyes for rate control. She was unsuccessful and a beta reyes. She has a history of valve replacement, and stents 3 years ago at [facility]. She is chest pain-free today. Qualifiers: Coronary Disease-Associated Artery/Lesion type: unspecified vessel or lesion type [place] vs. transplanted heart: [place] heart Associated angina: with unstable angina Qualified Code(s): I25.110 - Atherosclerotic heart disease of [place] coronary artery with unstable angina pectoris (4) Hypothyroidism Priority: Secondary Status: Chronic Comments: Chronic. Continue home medications Qualifiers: Hypothyroidism type: acquired Qualified Code(s): E03.9 - Hypothyroidism, unspecified (5) Hypoxia Priority: Secondary Status: Acute Comments: Patient is maintaining room air sats 97%. She has not need supplemental oxygen at this time. - Discharge Medications Home Medications: Alprazolam [Xanax] 1 mg PO TID 11/29/14 [History] Bupropion HCl [Wellbutrin] 75 mg PO BID 11/29/14 [History] Pravastatin Sodium [Pravachol] 40 mg PO HS 11/29/14 [History] Benzonatate [Tessalon] 100 mg PO TID PRN 11/17/15 [History] Furosemide [Lasix] 40 mg PO BID 11/17/15 [History] Multivitamin [Multi-Day Vitamins] 1 each PO DAILY 11/17/15 [History] Ondansetron [Zofran] 8 mg PO Q6H PRN 11/17/15 [History] Potassium Chloride [K-Tab ER] 20 meq PO BID 11/17/15 [History] Sennosides [Senna] 8.6 mg PO HS 11/17/15 [History] Gabapentin [Neurontin] 300 mg PO HS 07/19/16 [History] Isosorbide MONOnitrate (24 HR) [Imdur] 15 mg PO DAILY 07/19/16 [History] Levothyroxine [Synthroid] 75 mcg PO 0630 07/19/16 [History] OxyCODONE Immed Rel [Roxicodone 5 MG] 10 mg PO Q6HR PRN 07/19/16 [History] Ropinirole [Requip] 1 mg PO HS 07/19/16 [History] Warfarin [Coumadin] 7.5 mg PO 1800 07/19/16 [History] Aspirin Enteric Coated [Aspirin EC] 81 mg PO DAILY tablet. 07/22/16 [Rx] Diltiazem CD (24hr) [Cardizem CD] 120 mg PO DAILY #30 cap.er.24h 07/22/16 [Rx] Allergies/Adverse Reactions: Allergies ciprofloxacin [From Cipro] Allergy (Verified 08/04/16 14:48) Hives acetaminophen [From Percocet] Adverse Reaction (Verified 08/04/16 14:48) Gastrointestinal Upset Procedures/tests Complete & Pending: Procedures Performed prior 72 hours Category Date Time Status EV echocardiogram Routine Y 08/05/16 16:52 Completed Date of admission: 08/04/16 20:53 Primary care physician: Geetha Maharaj CNP Discharging clinician: Shoshana Heaton Anticipated date of discharge: 08/06/16 - Patient Status Disposition: Home, Self-Care Condition: Good Functional capacity at discharge: independent ambulation Overall status at discharge: patient is back to baseline - Discharge Instructions Follow Up With: Geetha Maharaj CNP [Primary Care Provider] - 08/12/16 1:00 pm Additional Instructions: Please follow up with your family doctor within the next week for a recheck. Follow up with your vault service mechanic as scheduled. Return to the ED as needed for any other problems or concerns or for change in your condition. - Diet and Activity Activity: increase activity as tolerated, resume usual activities as tolerated Diet: advance to your usual diet Interval History: Mrs. Monte is a 70-year-old female with history of A. fib, CAD, pacemaker insertion, valve replacement, cardiac stents. She was seen in the emergency department for chest pain. She reports a one-week history of sharp left chest pain that radiates through to the back. She denies any other associated symptoms such as nausea, vomiting, diaphoresis, or shortness of breath. She said that is intermittent and happens daily. Nothing makes it better and nothing makes it worse. She has recently been started on sotalol about 2 weeks ago and felt drugged and fatigued. She has stopped taking it and has been changed to diltiazem. When she was in emergency department she was hypoxic with a pulse ox on room air at 83%. She was placed on BiPAP and then transitioned to 4 L of oxygen at that point she was able to maintain her saturations. Her CTA was negative for PE and infiltrates. Echocardiogram today shows normal LV size and function with an EF of 60%, indeterminant diastolic dysfunction, normal right ventricular structure and function, severely dilated left atrium. Her bioprosthetic valves were visualized aortic valve appears to be normal, however the mitral valve has severe thickening and calcification without significant stenosis. This is not changed compared to prior reports. She has mild pulmonary hypertension and her pacemaker lead was also visualized. During the exam yesterday patient appeared to have kind of on low for vague body pain and it appeared to be a bit groggy however she was alert and oriented and interactive. Today patient is much more lively and interactive, when I entered the room to see her this morning she had already showered, her curling iron was plugged in, and she was spraying hairspray to get ready to leave. She has company coming out of town for [employer]. Her vital signs are stable and labs are within normal limits. Patient is suitable for discharge. Hospital course: Ms. Monte is a 70 year old female - Time Spent with Patient Total time spent providing and/or coordinating discharge services: Less than 30 minutes - Constitutional Vitals: Temp Pulse Resp BP Pulse Ox 97.8 F 67 14 116/56 94 08/06/16 14:46 08/06/16 14:46 08/06/16 14:46 08/06/16 14:46 08/06/16 14:46 General appearance: Present: cooperative, A&O X 3, pleasant, underweight, answers questions appropriately - Head Head exam: Present: normal inspection - Eye Eye exam: Present: normal appearance - ENT ENT exam: Present: mucous membranes moist, normal exam - Neck Neck exam general surgery: Absent: lymphadenopathy, tenderness - Respiratory Respiratory exam: Present: CTAB. Absent: rales, rhonchi - Cardiovascular Cardiovascular exam: Present: RRR, +S1, +S2. Absent: bradycardia, diastolic murmur, systolic murmur, tachycardia - GI/Abdominal GI/Abdominal exam: Present: normal bowel sounds, soft. Absent: distended, tenderness - Extremities Exam Extremities exam: Present: normal capillary refill, warm, radial pulses palpable and symetrical. Absent: pedal edema, tenderness - Neurological Exam Neurological exam: Present: alert, oriented X3, strengths equal and symetr throughout. Absent: motor sensory deficit, no focal deficits
== END 2016-08-06 16:54 | disposition home or self-care (01) ==
LOC: EMEROO 14:27 → 3BNU 14:27
PROVIDERS: ADMIT Internal Medicine; ATTEND Registered Nurse

== ENCOUNTER 2016-08-24 19:07 | Observation (INO) ==
[2016-08-24] MEDS ORDERED: Aspirin 325 MG TABLET PO ONE (19:30)
--- NOTE | 2016-08-24 19:35 | Emergency Department Note ---
Disposition Clinical Impression: A-fib Qualifiers: Atrial fibrillation type: paroxysmal Qualified Code(s): I48.0 - Paroxysmal atrial fibrillation Disposition: Admitted As Inpatient Condition: Good Time of Disposition: 00:10 General Adult HPI - General Chief complaint: ED Arrhythmia/Palpitations Stated complaint: heart palp Time Seen by Provider: 08/24/16 19:09 Nursing Notes Reviewed: Yes Vital Signs Reviewed: Yes - History of Present Illness HPI Narrative: Patient complaining of a six-day history of feeling like her heart is racing. Does have a history of A. fib. Has been taking medication as prescribed. Has had several medication changes over the past 2 weeks. Also complaining of a generalized weakness. Pain and nausea that started today along with chest pain while she was coming into the hospital. Complains of pain is a sharp in nature does not radiate. - Related Data Home Medications Medication Instructions Recorded Confirmed Alprazolam [Xanax] 1 mg PO TID 11/29/14 08/04/16 Bupropion HCl [Wellbutrin] 75 mg PO BID 11/29/14 08/04/16 Pravastatin Sodium [Pravachol] 40 mg PO HS 11/29/14 08/04/16 Benzonatate [Tessalon] 100 mg PO TID PRN 11/17/15 08/04/16 Furosemide [Lasix] 40 mg PO BID 11/17/15 08/04/16 Multivitamin [Multi-Day Vitamins] 1 each PO DAILY 11/17/15 08/04/16 Ondansetron [Zofran] 8 mg PO Q6H PRN 11/17/15 08/04/16 Potassium Chloride [K-Tab ER] 20 meq PO BID 11/17/15 08/04/16 Sennosides [Senna] 8.6 mg PO HS 11/17/15 08/04/16 Gabapentin [Neurontin] 300 mg PO HS 07/19/16 08/04/16 Isosorbide MONOnitrate (24 HR) 15 mg PO DAILY 07/19/16 08/04/16 [Imdur] Levothyroxine [Synthroid] 75 mcg PO 0630 07/19/16 08/04/16 OxyCODONE Immed Rel [Roxicodone 5 10 mg PO Q6HR PRN 07/19/16 08/04/16 MG] Ropinirole [Requip] 1 mg PO HS 07/19/16 08/04/16 Warfarin [Coumadin] 7.5 mg PO 1800 07/19/16 08/04/16 Warfarin [Coumadin] 10 mg PO MO 08/24/16 08/24/16 Previous Rx's Medication Instructions Recorded Aspirin Enteric Coated [Aspirin EC] 81 mg PO DAILY tablet. 07/22/16 Diltiazem CD (24hr) [Cardizem CD] 120 mg PO DAILY #30 cap.er.24h 07/22/16 Allergies Allergy/AdvReac Type Severity Reaction Status Date / Time ciprofloxacin [From Cipro] Allergy Hives Verified 08/24/16 19:08 acetaminophen [From Percocet] AdvReac Gastrointestinal Verified 08/24/16 19:08 Upset All systems ED: reviewed and negative except as stated. Constitutional: Reports: weakness (Generalized for 1 week). Denies: fever, chills Cardiovascular: Reports: chest pain (Intermittent today worse with inspiration.) , palpitations (Since . 6 days.) Respiratory: Denies: cough, dyspnea, wheezes Gastrointestinal: Reports: nausea. Denies: abdominal pain, vomiting, diarrhea Genitourinary: Denies: urgency, dysuria, frequency, hematuria Musculoskeletal: Reports: neck pain (Began today.). Denies: back pain Integumentary: Denies: rash Neurological: Reports: weakness (For 1 week. While she has had the palpitations.). Denies: headache Past Medical History - Past Medical History Attestation: Yes The following information was validated with the patient. Medical history: Reports: atrial fibrillation, cancer, cardiomyopathy, CHF, COPD , coronary artery disease, fibromyalgia, GI bleed, hyperlipidemia, malignancy, peripheral artery disease, thyroid disease, valvular heart disease Surgical history: Reports: angioplasty/stent, breast surgery, cancer surgery, carotid endarterectomy, cataract, cholecystectomy, colectomy, coronary bypass ( CABG), heart valve replacement, hysterectomy, pacemaker/AICD, other Psychiatric history: Reports: anxiety - Social History Smoking Status: Former smoker Smokeless Tobacco Status: No Alcohol use: Reports: none Drug use: Reports: none Physical Exam - General Limitations: no limitations, language barrier General appearance: alert, in no apparent distress - Head Head exam: atraumatic, normocephalic - Eye Eye exam: Present: normal appearance, PERRL, EOMI - ENT ENT exam: normal exam, normal oropharynx - Neck Neck exam: Present: normal inspection, full ROM - Chest Chest inspection: Present: normal inspection, symmetric chest wall rise - Respiratory Respiratory exam: Present: normal lung sounds bilaterally. Absent: respiratory distress - Cardiovascular Cardiovascular exam: Present: regular rate, normal rhythm, normal heart sounds - Abdominal Exam Abdominal exam: Present: soft, Non-Tender, normal bowel sounds - Extremities Exam Extremities exam: Present: normal inspection, full ROM, normal capillary refill , pedal edema (Bilaterally pitting to mid tibias.). Absent: tenderness - Back Exam Back exam: Present: normal inspection, full ROM. Absent: tenderness - Neurological Exam Neurological exam: Present: alert, oriented X3 - Psychiatric Psychiatric exam: Present: normal affect, normal mood - Skin Skin exam: Present: warm, dry, intact, normal color. Absent: rash, cyanosis Course Course Narrative: Female patient resting comfortably in bed complaining of a one-week history of feeling like her heart is out of rhythm. She states that she does have a history of atrial fibrillation and this feels like it has in the past. She has had several medication changes over the past 2 weeks which includes stopping her digoxin and starting and stopping Betapaste. She states she does take Cardizem and some other medications that she is unaware of and has been taking them religiously. She also states she is on Coumadin for anticoagulation. She complains of neck pain as well as chest pain on deep inspiration. She denies any recent illnesses or coughs. She is a nonsmoker. She is also complaining of edema to her bilateral lower extremities. She takes Lasix daily and has been taking this as normal. She states she is urinating normally as well. Patient's lung sounds are clear and heart sounds are normal. She her abdomen is soft and nontender. She does have pitting edema to bilateral lower extremities to about penitentiary up her tibias. She is in A. fib while she is here but is rate controlled in the 1 teens. We will get a basic cardiac workup inclusive of a BNP. Patient is rate controlled at this time however she becomes unstable or she is here we will consider medication and menstruation at that time. She is getting ACS workup inclusive of aspirin administration. - Reevaluation(s) Reevaluation #1: Patient resting comfortably in bed at this time. She states that she is still having the pain in her neck but denies chest pain at this time. She states that the nausea is relieved. We will provide pain medication. We will also admit patient for her onset of A. fib as well as chest pain. Patient is agreeable to this plan. Time: 21:07 Vital Signs Temperature 98.0 F 08/24/16 19:09 Pulse Rate 97 08/24/16 19:09 Respiratory Rate 18 08/24/16 19:09 Blood Pressure 145/76 08/24/16 19:09 O2 Sat by Pulse Oximetry 100 08/24/16 19:09 Temperature 97.9 F 08/24/16 23:04 Pulse Rate 131 08/24/16 23:04 Respiratory Rate 20 08/24/16 23:04 Blood Pressure 103/62 08/24/16 23:04 O2 Sat by Pulse Oximetry 92 08/24/16 23:04 Oxygen Delivery Oxygen Delivery Nasal Cannula Medical Decision Making - Medical Records Medical records reviewed: Yes I reviewed the patient's medical records. - Lab Data Result diagrams: 08/24/16 20:14 08/24/16 20:14 Lab Results 08/24/16 08/24/16 08/24/16 Range/Units 20:14 20:14 20:14 WBC 5.6 (4.3-11.1) K/mcL RBC 4.95 (3.82-4.97) M/mcL Hgb 10.0 L (11.5-15.4) g/dL Hct 34.3 L (35.3-44.9) % MCV 69.3 L (83.0-100.0) fL MCH 20.2 L (28.0-33.3) pg MCHC 29.2 L (31.6-35.5) g/dL RDW 17.2 H (11.5-14.5) % Plt Count 225 (140-400) K/mcL MPV 9.6 (9.4-12.4) fL Immature Gran % 0.4 (0-4) % Seg Neutrophils % 74.7 % Lymphocytes % 13.1 % Monocytes % 9.5 % Eosinophils % 1.6 % Basophils % 0.7 % Neutrophils # 4.2 (1.6-8.9) K/mcL Lymphocytes # 0.7 (0.6-4.6) K/mcL Monocytes # 0.5 (0.0-1.3) K/mcL Eosinophils # 0.1 (0.0-0.6) K/mcL Basophils # 0.0 (0.0-0.2) K/mcL Platelet Estimate Normal (Normal) Large Platelets Present A (Not Present) Immature Plt Fraction 4.5 (1.1-6.1) % Polychromasia 1+ A (Not Present) Hypochromasia Present A (Not Present) Microcytosis Present A (Not Present) Macrocytosis Present A (Not Present) PT 30.3 H (9.4-12.1) Seconds INR 2.7 APTT 35.5 (26.0-36.0) Seconds Sodium 139 (136-145) mEq/L Potassium 3.1 L (3.5-4.5) mEq/L Chloride 101 (98-109) mEq/L Carbon Dioxide 28 (19-29) mEq/L BUN 36 H (7-20) mg/dL Creatinine 0.87 (0.57-1.11) mg/dL Est GFR ( Amer) > 60 (> 60) Est GFR (Non-Af Amer) > 60 (> 60) BUN/Creatinine Ratio 41 H (6-26) Glucose 99 (70-99) mg/dL Calculated Osmolality 296 (280-300) Calcium 9.7 (8.6-10.8) mg/dL Magnesium 1.8 (1.6-2.6) mg/dL Troponin I (0-0.03) ng/mL B-Natriuretic Peptide (0-100) pg/mL 08/24/16 08/24/16 Range/Units 20:14 20:14 WBC (4.3-11.1) K/mcL RBC (3.82-4.97) M/mcL Hgb (11.5-15.4) g/dL Hct (35.3-44.9) % MCV (83.0-100.0) fL MCH (28.0-33.3) pg MCHC (31.6-35.5) g/dL RDW (11.5-14.5) % Plt Count (140-400) K/mcL MPV (9.4-12.4) fL Immature Gran % (0-4) % Seg Neutrophils % % Lymphocytes % % Monocytes % % Eosinophils % % Basophils % % Neutrophils # (1.6-8.9) K/mcL Lymphocytes # (0.6-4.6) K/mcL Monocytes # (0.0-1.3) K/mcL Eosinophils # (0.0-0.6) K/mcL Basophils # (0.0-0.2) K/mcL Platelet Estimate (Normal) Large Platelets (Not Present) Immature Plt Fraction (1.1-6.1) % Polychromasia (Not Present) Hypochromasia (Not Present) Microcytosis (Not Present) Macrocytosis (Not Present) PT (9.4-12.1) Seconds INR APTT (26.0-36.0) Seconds Sodium (136-145) mEq/L Potassium (3.5-4.5) mEq/L Chloride (98-109) mEq/L Carbon Dioxide (19-29) mEq/L BUN (7-20) mg/dL Creatinine (0.57-1.11) mg/dL Est GFR ( Amer) (> 60) Est GFR (Non-Af Amer) (> 60) BUN/Creatinine Ratio (6-26) Glucose (70-99) mg/dL Calculated Osmolality (280-300) Calcium (8.6-10.8) mg/dL Magnesium (1.6-2.6) mg/dL Troponin I 0.01 (0-0.03) ng/mL B-Natriuretic Peptide 211 H (0-100) pg/mL - EKG Data EKG #1 EKG attestation: Yes I reviewed and interpreted this EKG. EKG results narrative: Atrial fibrillation with RVR at a rate of 112. QRS duration is 104. QT is 356. QTC is 422. No signs of acute ischemia. She was atrially paced and her previous EKG dated 08/04/2016. Attestation Statement - Attestation Attestation: I, Slim Godwin, examined this patient and my medical decision-making was reviewed with the POWDER CUTTING OPERATOR/PA/Advanced Practice Nurse/Resident Physician. I agree with the documented findings, disposition and treatment plan as described except to the extent set forth below. 70-year-old female presents with concerns of palpitations and pain to the neck and back. Patient states that she has recently been taken off her digoxin and her early childhood lead teacher, Dr. London, is trying different rate limiting medications for her atrial fibrillation. Patient denies fever, chills, nausea, vomiting, chest pain, abdominal pain, diarrhea. Patient feels weak and fatigued and feels her heart racing in her chest. On physical exam the patient has lungs that are clear to auscultation bilaterally. Abdomen soft and nontender to palpation. The heart rate is is tachycardic and irregularly irregular. We will obtain labs for evaluation of ACS. ECG shows atrial fibrillation with RVR with a rate of 112 without evidence of STEMI. Disposition is pending.
[2016-08-24] MEDS ORDERED: Ondansetron ODT 4 MG TAB.RAPDIS SL ONE (19:38)
[2016-08-24 20:22] LABS: Eosinophils % 1.6 %; Immature Granulocytes % 0.4 % (0-4); Red Cell Distribution Width 17.2 % (11.5-14.5); Segmented Neutrophils % 74.7 %
[2016-08-24 20:24] LABS: Basophils % 0.7 %; Eosinophils # 0.1 K/mcL (0.0-0.6); Hematocrit 34.3 % (35.3-44.9); Immature Platelets 4.5 % (1.1-6.1); Lymphocytes # 0.7 K/mcL (0.6-4.6); Lymphocytes % 13.1 %; Mean Corpuscular HGB Conc 29.2 g/dL (31.6-35.5); Mean Corpuscular Hemoglobin 20.2 pg (28.0-33.3); Mean Corpuscular Volume 69.3 fL (83.0-100.0); Mean Platelet Volume 9.6 fL (9.4-12.4); Monocytes # 0.5 K/mcL (0.0-1.3); Monocytes % 9.5 %; Neutrophils # 4.2 K/mcL (1.6-8.9); Platelet Count 225 K/mcL (140-400); Red Blood Count 4.95 M/mcL (3.82-4.97)
[2016-08-24 20:26] LABS: INR 2.7; Prothrombin Time 30.3 Seconds (9.4-12.1)
[2016-08-24 20:30] LABS: Activated Partial Thrombo Time 35.5 Seconds (26.0-36.0)
[2016-08-24 20:35] LABS: BUN/Creatinine Ratio 41 (6-26); Blood Urea Nitrogen 36 mg/dL (7-20); Calcium 9.7 mg/dL (8.6-10.8); Carbon Dioxide 28 mEq/L (19-29); Chloride 101 mEq/L (98-109); Glucose 99 mg/dL (70-99); Osmolality,Calculated 296 (280-300); Potassium 3.1 mEq/L (3.5-4.5); Sodium 139 mEq/L (136-145); eGFR For African Americans > 60 (> 60); eGFR For Non-African Americans > 60 (> 60)
[2016-08-24] MEDS ORDERED: Potassium Chloride Elixir 20 MEQ/15 ML UDC PO ONE (20:38)
[2016-08-24 20:49] LABS: Hypochromasia Present (Not Present); Microcytosis Present (Not Present); Platelet Estimate Normal (Normal); Polychromasia 1+ (Not Present)
[2016-08-24 20:50] LABS: Large Platelets Present (Not Present); Macrocytosis Present (Not Present)
[2016-08-24] MEDS ORDERED: *HR* FentaNYL (PF) 100 MCG/2 ML VIAL IVP ONE (21:07)
[2016-08-24 21:23] LABS: Magnesium 1.8 mg/dL (1.6-2.6)
[2016-08-24] MEDS ORDERED: Naloxone 0.4 MG/ML INJ IVP PRN (22:09)
--- NOTE | 2016-08-24 22:23 | Internal Med History&Physical ---
Date of Encounter: 08/24/16 Time of Encounter: 22:21 Assessment and Plan (1) Atrial fibrillation with RVR Current visit: No Status: Acute Patient reports feeling like her heart is racing since , with associated increased shortness of breath, weakness, fatigue. EKG shows atrial fibrillation with RVR heart rate 112, previous EKG showed atrial paced rhythm. Patient takes diltiazem for rate and rhythm control and Coumadin for anticoagulation. She was recently trialed on Betapace, but had adverse reactions to an insulin was stopped. She previously taken digoxin. INR is therapeutic, continue home dose of Coumadin One time short acting dose of diltiazem 30mg Increase long-acting dose of diltiazem to 180mg daily tomorrow. 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 EKG did not show any ST changes. Troponin was negative at 0.01. Patient had echocardiogram on August 05 which showed LVEF of 60%, normal LV size and function, normal RV structure and function, severely dilated left atrium, confirmed bioprosthetic AV and MV. Continuous fiber machine tender Serial troponins returned Qualifiers: Chest pain type: precordial pain Qualified Code(s): R07.2 - Precordial pain (3) Hypokalemia Current visit: Yes Status: Acute potassium of 3.1. Patient given 40 mEq of potassium in ED. Will give additional 40mEq tonight as we will give some lasix for her swelling. Continue home dose of potassium 20 mEq PO BID. Recheck chemistry in the morning. (4) COPD (chronic obstructive pulmonary disease) Current visit: Yes Status: Acute Patient with COPD, wears 2L O2 PRN at home. She is not in exacerbation. Titrat O2 to maintain oxygen saturation > 90%. duonebs QID PRN Qualifiers: COPD type: unspecified COPD Qualified Code(s): J44.9 - Chronic obstructive pulmonary disease, unspecified (5) Anticoagulated on Coumadin Current visit: Yes Status: Acute Patient takes coumadin due to Afib. INR therapeutic at 2.7 Continue home dose of coumadin Check PT/INR tomorrow. (6) Edema of both legs Current visit: Yes Status: Acute Patient complaining of swelling in both legs. On exam, +1 BLE edema. BNP mildly elevated to 211, but lower than previous values. Lasix 40mg IVP once, additional 40 mEq of potassium ordered as well. (7) DVT prophylaxis Current visit: No Status: Acute Antiembolic stockings Patient on Coumadin for atrial fibrillation, additional pharmacologic prophylaxis is not warranted. Internal Medicine - H&P: HPI Chief complaint: palpitations Admitted From: Emergency Dept Plans for Post Hospital Care: Home History of present illness: Ms. Monte is a 70 year old female with hypertension, hyperlipidemia, peripheral artery disease, fibromyalgia, coronary artery disease status post stent placement, valvular heart disease status post mitral valve replacement aortic valve replacement and tricuspid valve repair, cardiomyopathy, congestive heart failure, atrial fibrillation, pacemaker presents to the emergency department today with complaints of palpitations. Patient reports that her heart has been racing since , she had associated increased shortness of breath, headache, chills, nausea. She reports she feels weak and worn out due to the heart racing. She also reports some increased swelling in her bilateral lower extremities. She reports neck pain, and occasional chest pain. Chest pain does not last very long and only occurred twice today. She denies lightheadedness, cough, fever, sweats, body aches. Patient was trialed on Betapace recently but had adverse reaction to it so it was stopped. Patient is on diltiazem for rate and rhythm control and Coumadin for anticoagulation. Evaluation in emergency department revealed INR is therapeutic at 2.7. She is hypokalemic with potassium of 3.1. Prominent was normal at 0.01. BNP was 211 but down from previous values. Chest x-ray showed slight increase in right basilar opacity. EKG showed atrial fibrillation with rapid ventricular response with heart rate of 112. Patient's heart rate continued to be in the low 100s. On exam, patient is alert and oriented, in no acute distress. Heart has irregular tachycardic rhythm. Lungs are clear to auscultation bilaterally. Bilateral lower extremities have +1 edema. Past Med Surg Social Fam HX - Past Medical History Medical history: atrial fibrillation, cancer, cardiomyopathy, CHF, COPD, coronary artery disease, fibromyalgia, GI bleed, hyperlipidemia, malignancy, peripheral artery disease, thyroid disease, valvular heart disease Psychiatric history: anxiety - Past Surgical History Surgical History: angioplasty/stent, breast surgery, cancer surgery, carotid endarterectomy, cataract, cholecystectomy, colectomy, heart valve replacement, hysterectomy, pacemaker/AICD, other - Social History Smoking Status: Former smoker (180 pack year history) Smokeless Tobacco Status: No Alcohol use: rarely Drug use: none - Family History Mother Adopted: No Family Member Ethnicity: Unknown Living Status: Age at : 59 Cause of : [place] Hx Family Cardiac Disorders: Yes ([place]) Hx Family Endocrine Disorder: Yes (DIABETES MELLITUS.) Father Living Status: Age at : 64 Cause of : [place] Hx Family Cardiac Disorders: Yes Internal Medicine - H&P: Meds Alprazolam [Xanax] 1 mg PO TID 11/29/14 [History] Bupropion HCl [Wellbutrin] 75 mg PO BID 11/29/14 [History] Pravastatin Sodium [Pravachol] 40 mg PO HS 11/29/14 [History] Benzonatate [Tessalon] 100 mg PO TID PRN 11/17/15 [History] Furosemide [Lasix] 40 mg PO BID 11/17/15 [History] Multivitamin [Multi-Day Vitamins] 1 tab PO DAILY 11/17/15 [History] Ondansetron [Zofran] 8 mg PO Q6H PRN 11/17/15 [History] Potassium Chloride [K-Tab ER] 20 meq PO BID 11/17/15 [History] Sennosides [Senna] 8.6 mg PO HS 11/17/15 [History] Gabapentin [Neurontin] 300 mg PO HS 07/19/16 [History] Isosorbide MONOnitrate (24 HR) [Imdur] 15 mg PO DAILY 07/19/16 [History] Levothyroxine [Synthroid] 75 mcg PO 0630 07/19/16 [History] OxyCODONE Immed Rel [Roxicodone 5 MG] 10 mg PO Q6HR PRN 07/19/16 [History] Ropinirole [Requip] 1 mg PO HS 07/19/16 [History] Warfarin [Coumadin] 7.5 mg PO 6XW 07/19/16 [History] Aspirin Enteric Coated [Aspirin EC] 81 mg PO DAILY tablet. 07/22/16 [Rx] Diltiazem CD (24hr) [Cardizem CD] 120 mg PO DAILY #30 cap.er.24h 07/22/16 [Rx] Warfarin [Coumadin] 10 mg PO MO 08/24/16 [History] Allergies ciprofloxacin [From Cipro] Allergy (Verified 08/24/16 19:08) Hives acetaminophen [From Percocet] Adverse Reaction (Verified 08/24/16 19:08) Gastrointestinal Upset All Systems PM: A 10-system review of systems was performed and is negative for pertinent findings except as documented above in the HPI. - Constitutional Constitutional: chills, fatigue, weakness, no fever(s), no night sweats - EENT Eyes: no change in vision, no discharge, no pain, no photophobia Ears: no ear discharge, no ear pain, no tinnitus Nose, mouth and throat: no dysphagia, no nasal discharge, no neck pain, no sore throat - Cardiovascular Cardiovascular ROS IM: chest pain, dyspnea, edema, palpitations, no diaphoresis , no lightheadedness, no syncope - Respiratory Respiratory: dyspnea, no cough, no wheezing, no excessive phlegm production - Gastrointestinal Gastrointestinal: nausea, no abdominal pain, no diarrhea, no hematemesis, no hematochezia, no melena, no vomiting - Genitourinary Genitourinary: no change in urinary stream, no dysuria, no flank pain, no hematuria - Musculoskeletal Musculoskeletal ROS IM: no numbness, no tingling - Integumentary Integumentary IM: no rash, no unusual bruising - Neurological Neurological ROS: headache(s), no confusion, no convulsions, no focal weakness, no numbness, no tingling, no tremor(s) - Hematologic/Lymphatic Hematologic/Lymphatic: no easy bruising - Constitutional Vitals: Temp Pulse Resp BP Pulse Ox 98.0 F 109 20 140/83 97 08/24/16 19:09 08/24/16 20:10 08/24/16 20:10 08/24/16 20:10 08/24/16 20:10 General appearance: Present: A&O X 3, pleasant, no acute distress - Head Head exam: Present: atraumatic, normocephalic - Eye Eye exam: Present: PERRL, conjuntiva pink, sclera anicteric Pupils: Present: PERRL - Neck Neck exam general surgery: Present: supple, trachea midline. Absent: lymphadenopathy - Respiratory Respiratory exam: Present: CTAB. Absent: accessory muscle use, rales, rhonchi, wheezes - Cardiovascular Cardiovascular exam: Present: irregular rhythm, +S1, +S2, tachycardia. Absent: diastolic murmur, gallop, rubs, systolic murmur - GI/Abdominal GI/Abdominal exam: Present: normal bowel sounds, soft, no peritoneal signs. Absent: distended, tenderness - Extremities Exam Extremities exam: Present: pedal edema (+1 BLE edema), warm, radial pulses palpable and symetrical. Absent: calf tenderness, cyanotic - Neurological Exam Neurological exam: Present: CN II-XII intact, oriented X3, no focal deficits. Absent: facial droop, speech deficit - Skin Skin exam: Present: dry, intact Internal Med - H&P Results - Labs CBC & Chem 7: 08/24/16 20:14 08/24/16 20:14 Labs: All Lab Results (24 Hours) 08/24/16 08/24/16 08/24/16 Range/Units 20:14 20:14 20:14 WBC 5.6 (4.3-11.1) K/mcL RBC 4.95 (3.82-4.97) M/mcL Hgb 10.0 L (11.5-15.4) g/dL Hct 34.3 L (35.3-44.9) % MCV 69.3 L (83.0-100.0) fL MCH 20.2 L (28.0-33.3) pg MCHC 29.2 L (31.6-35.5) g/dL RDW 17.2 H (11.5-14.5) % Plt Count 225 (140-400) K/mcL MPV 9.6 (9.4-12.4) fL Immature Gran % 0.4 (0-4) % Seg Neutrophils % 74.7 % Lymphocytes % 13.1 % Monocytes % 9.5 % Eosinophils % 1.6 % Basophils % 0.7 % Neutrophils # 4.2 (1.6-8.9) K/mcL Lymphocytes # 0.7 (0.6-4.6) K/mcL Monocytes # 0.5 (0.0-1.3) K/mcL Eosinophils # 0.1 (0.0-0.6) K/mcL Basophils # 0.0 (0.0-0.2) K/mcL Platelet Estimate Normal (Normal) Large Platelets Present A (Not Present) Immature Plt Fraction 4.5 (1.1-6.1) % Polychromasia 1+ A (Not Present) Hypochromasia Present A (Not Present) Microcytosis Present A (Not Present) Macrocytosis Present A (Not Present) PT 30.3 H (9.4-12.1) Seconds INR 2.7 APTT 35.5 (26.0-36.0) Seconds Sodium 139 (136-145) mEq/L Potassium 3.1 L (3.5-4.5) mEq/L Chloride 101 (98-109) mEq/L Carbon Dioxide 28 (19-29) mEq/L BUN 36 H (7-20) mg/dL Creatinine 0.87 (0.57-1.11) mg/dL Est GFR ( Amer) > 60 (> 60) Est GFR (Non-Af Amer) > 60 (> 60) BUN/Creatinine Ratio 41 H (6-26) Glucose 99 (70-99) mg/dL Calculated Osmolality 296 (280-300) Calcium 9.7 (8.6-10.8) mg/dL Magnesium 1.8 (1.6-2.6) mg/dL Troponin I (0-0.03) ng/mL B-Natriuretic Peptide (0-100) pg/mL 08/24/16 08/24/16 Range/Units 20:14 20:14 WBC (4.3-11.1) K/mcL RBC (3.82-4.97) M/mcL Hgb (11.5-15.4) g/dL Hct (35.3-44.9) % MCV (83.0-100.0) fL MCH (28.0-33.3) pg MCHC (31.6-35.5) g/dL RDW (11.5-14.5) % Plt Count (140-400) K/mcL MPV (9.4-12.4) fL Immature Gran % (0-4) % Seg Neutrophils % % Lymphocytes % % Monocytes % % Eosinophils % % Basophils % % Neutrophils # (1.6-8.9) K/mcL Lymphocytes # (0.6-4.6) K/mcL Monocytes # (0.0-1.3) K/mcL Eosinophils # (0.0-0.6) K/mcL Basophils # (0.0-0.2) K/mcL Platelet Estimate (Normal) Large Platelets (Not Present) Immature Plt Fraction (1.1-6.1) % Polychromasia (Not Present) Hypochromasia (Not Present) Microcytosis (Not Present) Macrocytosis (Not Present) PT (9.4-12.1) Seconds INR APTT (26.0-36.0) Seconds Sodium (136-145) mEq/L Potassium (3.5-4.5) mEq/L Chloride (98-109) mEq/L Carbon Dioxide (19-29) mEq/L BUN (7-20) mg/dL Creatinine (0.57-1.11) mg/dL Est GFR ( Amer) (> 60) Est GFR (Non-Af Amer) (> 60) BUN/Creatinine Ratio (6-26) Glucose (70-99) mg/dL Calculated Osmolality (280-300) Calcium (8.6-10.8) mg/dL Magnesium (1.6-2.6) mg/dL Troponin I 0.01 (0-0.03) ng/mL B-Natriuretic Peptide 211 H (0-100) pg/mL - Impressions ITS Impressions Chest X-Ray 08/24/16 19:30 IMPRESSION: Slight increase in right basilar opacity, may represent atelectasis or consolidation. Otherwise no significant change compared to prior radiograph. D/ / Francois Ayala MD / Francois Ayala MD Interpreting Provider: Francois Ayala MD - Diagnostic Studies Chest x-ray Additional comments: Chest X-Ray 08/24/16 19:30
[2016-08-24] MEDS ORDERED: Furosemide 40 MG/4 ML VIAL IVP ONE (22:46)
[2016-08-24] MEDS ORDERED: Ipratropium/Albuterol Neb 3 ML IH PRN (22:54)
[2016-08-24] MEDS ORDERED: Acetaminophen 325 MG TABLET PO PRN (23:27)
[2016-08-24] MEDS: Gabapentin 300 MG CAPSULE PO SCH (23:30)
[2016-08-24] MEDS: Furosemide 40 MG TABLET PO SCH (23:43)
[2016-08-24] MEDS: ALPRAZolam 1 MG TABLET PO SCH (23:58)
[2016-08-25] MEDS: *HR* OxyCODONE Immed Rel 5 MG TABLET PO PRN ×3 (02:35→19:45)
[2016-08-25 02:36] LABS: Basophils % 0.7 %; Eosinophils # 0.1 K/mcL (0.0-0.6); Eosinophils % 1.5 %; Hematocrit 31.5 % (35.3-44.9); Hemoglobin 9.2 g/dL (11.5-15.4); Immature Granulocytes % 0.2 % (0-4); Lymphocytes # 0.6 K/mcL (0.6-4.6); Lymphocytes % 10.6 %; Mean Corpuscular HGB Conc 29.2 g/dL (31.6-35.5); Mean Corpuscular Hemoglobin 20.2 pg (28.0-33.3); Mean Corpuscular Volume 69.2 fL (83.0-100.0); Mean Platelet Volume 10.4 fL (9.4-12.4); Monocytes # 0.6 K/mcL (0.0-1.3); Monocytes % 9.9 %; Neutrophils # 4.6 K/mcL (1.6-8.9); Nucleated Red Blood Cells 0.3 /100 WBC (0); Platelet Count 192 K/mcL (140-400); Red Blood Count 4.55 M/mcL (3.82-4.97); Red Cell Distribution Width 17.1 % (11.5-14.5); Segmented Neutrophils % 77.1 %
[2016-08-25] MEDS: Ondansetron ODT 4 MG TAB.RAPDIS PO PRN ×2 (02:38→13:53)
[2016-08-25 02:41] LABS: INR 2.7; Prothrombin Time 29.6 Seconds (9.4-12.1)
[2016-08-25] MEDS: rOPINIRole 1 MG TABLET PO SCH ×2 (02:42→19:44)
[2016-08-25 02:44] LABS: Activated Partial Thrombo Time 36.1 Seconds (26.0-36.0)
[2016-08-25 02:55] LABS: Calcium 9.2 mg/dL (8.6-10.8); Potassium 3.8 mEq/L (3.5-4.5)
[2016-08-25 03:19] LABS: Thyroid Stimulating Hormone 1.611 mcIU/mL (0.350-4.840)
[2016-08-25 03:44] LABS: Microcytosis Present (Not Present); Platelet Estimate Normal (Normal)
[2016-08-25 03:45] LABS: Hypochromasia Present (Not Present)
[2016-08-25 03:46] LABS: Large Platelets Present (Not Present); Polychromasia 1+ (Not Present)
[2016-08-25] MEDS: Diltiazem CD (24hr) 180 MG CAPSULE PO SCH (06:20)
[2016-08-25] MEDS: ALPRAZolam 1 MG TABLET PO SCH ×4 (07:47→22:20)
[2016-08-25] MEDS: Isosorbide MONOnitrate (24 HR) 30 MG TAB.ER.24H PO SCH (07:48)
[2016-08-25] MEDS: Aspirin Enteric Coated 81 MG Tablet PO SCH (07:48)
[2016-08-25] MEDS: Furosemide 40 MG TABLET PO SCH (07:48)
[2016-08-25] MEDS ORDERED: ALPRAZolam 1 MG TABLET PO SCH (09:00)
[2016-08-25] MEDS ORDERED: Diltiazem CD (24hr) 120 MG CAPSULE PO SCH (09:00)
[2016-08-25] MEDS ORDERED: *HR* Metoprolol 5 MG/5 ML VIAL IVP PRN (10:39)
--- NOTE | 2016-08-25 13:56 | Internal Med Progress Note ---
Date of Encounter: 08/25/16 Time of Encounter: 09:30 - Assessment and plan (1) Atrial fibrillation with RVR Current Visit: No Status: Acute Assessment and plan: Her by mouth Cardizem dosage has been increased. Heart rate was still in the 120s this morning so IV Lopressor was ordered but it was not given as her heart rate gradually slowed down and is currently in the 100s. She is therapeutic on Coumadin with an INR of 2.7. We will continue to trend and adjust her medications as indicated. (2) Atrial fibrillation Current Visit: No Status: Chronic Qualifiers: Atrial fibrillation type: paroxysmal Qualified Code(s): I48.0 - Paroxysmal atrial fibrillation (3) Chest pain Current Visit: No Status: Acute Assessment and plan: Patient currently complains of pain all over consistent with her chronic fibromyalgia pain. She is unable to localize specific pain. Troponin negative 3. Low suspicion for acute cardiac etiology. Chest CT pending. Qualifiers: Chest pain type: precordial pain Qualified Code(s): R07.2 - Precordial pain (4) Fibromyalgia Current Visit: Yes Status: Chronic Assessment and plan: Patient stating she has severe fibromyalgia. She states that her body hurts all over which is normal for her. Continue pain and nausea control. Patient does have a remote history of breast cancer, will obtain chest CT to possibly rule out reoccurence of her cancer. She does not appear to have been seen at the cancer center in quite a while- no records found in [facility]. (5) Acute respiratory failure Current Visit: Yes Status: Acute Assessment and plan: Continue supplemental oxygenation as needed. It does not appear as if the patient is on oxygen at home, will clarify. Chest CT pending. (6) Breast cancer metastasized to lung Current Visit: No Status: Inactive Assessment and plan: In review of her chart, it appears as if the patient had breast cancer status post mastectomy and left node dissection followed by chemotherapy in 2003 and 2004 with mediastinal/hilar adenopathy that had negative results on a bronchoscopy. Patient follows with pulmonology outpatient. She was seen in 2013 for increased size of her adenopathy but it does not appear as if she has been seen since 2013. Given that she is more short of breath than usual and is currently requiring oxygen, will obtain chest CT and consider pulmonology consult if abnormal. Qualifiers: Laterality: unspecified laterality Qualified Code(s): C50.919 - Malignant neoplasm of unspecified site of unspecified female breast; C78.00 - Secondary malignant neoplasm of unspecified lung (7) Hypothyroid Current Visit: No Status: Chronic Assessment and plan: TSH normal Qualifiers: Hypothyroidism type: unspecified Qualified Code(s): E03.9 - Hypothyroidism , unspecified (8) Diabetes Current Visit: No Status: Chronic Assessment and plan: Appears controlled, most recent A1c was November 2015 and was 5.7%. Continue sliding scale while admitted. We will check A1c with a.m. labs. Qualifiers: Diabetes mellitus type: type 2 Diabetes mellitus complication status: with unspecified complications Diabetes mellitus fpc insulin use: without fpc use Qualified Code(s): E11.8 - Type 2 diabetes mellitus with unspecified complications (9) Peripheral arterial disease Current Visit: No Status: Chronic (10) DVT prophylaxis Current Visit: No Status: Acute Assessment and plan: Therapeutic on Coumadin (11) CAD (coronary artery disease) Current Visit: No Status: Chronic Qualifiers: Coronary Disease-Associated Artery/Lesion type: unspecified vessel or lesion type [place] vs. transplanted heart: [place] heart Associated angina: with unstable angina Qualified Code(s): I25.110 - Atherosclerotic heart disease of [place] coronary artery with unstable angina pectoris (12) VHD (valvular heart disease) Current Visit: No Status: Chronic (13) CHF exacerbation Current Visit: No Status: Acute Assessment and plan: Suspect acute on chronic diastolic heart failure. Patient had an echocardiogram on 08/05/16 that revealed an ejection fraction of 60% with indeterminate diastolic function. She is on diuretics at home, suspect chronic diastolic heart failure. Her pedal edema has improved. Continue furosemide however patient will need gentle IV fluids given her acute kidney injury overnight. We will monitor closely. (14) Hypokalemia Current Visit: Yes Status: Resolved (15) COPD (chronic obstructive pulmonary disease) Current Visit: Yes Status: Chronic Assessment and plan: Does not appear to be an acute exacerbation however she is more short of breath than usual and requiring oxygen. Chest CT pending. Qualifiers: COPD type: unspecified COPD Qualified Code(s): J44.9 - Chronic obstructive pulmonary disease, unspecified (16) Anticoagulated on Coumadin Current Visit: Yes Status: Chronic (17) Edema of both legs Current Visit: Yes Status: Chronic Assessment and plan: Acute on chronic, patient stating this is much improved. (18) JEWEL (acute kidney injury) Current Visit: Yes Status: Acute Assessment and plan: Mild acute kidney injury noted overnight. We will give gentle IV fluids given that she is getting a CT with contrast today. Would hold tonight's dose of furosemide and check in the morning. - Subjective Interval history: Patient seen and examined. On examination, patient is sitting upright in her chair speaking to her sound editor. Patient stating she has pain everywhere. She also states that she is nauseated which she attributes to her pain medication. Patient stating her legs were swollen and she had gained 20 pounds but she states this has resolved. - Constitutional Vitals: Temp Pulse Resp BP Pulse Ox 97.5 F L 109 16 103/55 93 08/25/16 10:46 08/25/16 10:46 08/25/16 10:46 08/25/16 10:46 08/25/16 10:46 General appearance: Present: cachectic, mild distress (2/2 pain), A&O X 3, pleasant, answers questions appropriately - Head Head exam: Present: atraumatic, normocephalic - Eye Eye exam: Present: PERRL, conjuntiva pink, sclera anicteric Pupils: Present: PERRL - Neck Neck exam general surgery: Present: supple, trachea midline. Absent: lymphadenopathy - Respiratory Respiratory exam: Present: decreased breath sounds. Absent: accessory muscle use, rales, respiratory distress, rhonchi, wheezes - Cardiovascular Cardiovascular exam: Present: RRR, +S1, +S2, tachycardia. Absent: diastolic murmur, gallop, rubs, systolic murmur - GI/Abdominal GI/Abdominal exam: Present: normal bowel sounds, soft, no peritoneal signs. Absent: distended, tenderness - Extremities Exam Extremities exam: Present: warm, radial pulses palpable and symetrical. Absent : calf tenderness, cyanotic, pedal edema - Neurological Exam Neurological exam: Present: alert, CN II-XII intact, oriented X3, no focal deficits, strengths equal and symetr throughout. Absent: pronater drift, facial droop, speech deficit - Skin Skin exam: Present: dry, intact, pallor, warm Internal Medicine: Result - Labs CBC & Chem 7: 08/25/16 01:48 08/25/16 01:48 Labs: Short CBC 08/25/16 Range/Units 01:48 WBC 5.9 (4.3-11.1) K/mcL Hgb 9.2 L (11.5-15.4) g/dL Hct 31.5 L (35.3-44.9) % Plt Count 192 (140-400) K/mcL Neutrophils # 4.6 (1.6-8.9) K/mcL BMP 08/25/16 01:48 Sodium 136 Potassium 3.8 Chloride 103 Carbon Dioxide 24 BUN 40 H Creatinine 1.18 H Glucose 205 H Calcium 9.2 Cardiac Enzymes 08/25/16 08/25/16 Range/Units 01:48 08:31 Troponin I 0.02 0.01 (0-0.03) ng/mL - ABG Interpretation ABG results: PT/INR, D-dimer PT 29.6 Seconds (9.4-12.1) H 08/25/16 01:48 Consult Discharge Plan - Plan Referrals: Geetha Maharaj CNP [Primary Care Provider] - 09/01/16 2:30 pm
[2016-08-25] MEDS ORDERED: 0.9 % Sodium Chloride 500 ML IVC SCH (14:15)
[2016-08-25] MEDS ORDERED: *HR* Promethazine 25 MG/ML VIAL IVP PRN ×2 (14:23→15:12)
[2016-08-25] MEDS ORDERED: *HR* Morphine 2 MG/ML SYRINGE IVP PRN (14:24)
--- NOTE | 2016-08-25 14:26 | Electrocardiograph Report ---
[place] [id number] Test Date: 2016-08-24 Pat Name: Abbey Monte Department: 102 Room: 3B13 Gender: F Sheep Sticker: [facility] : 1945 Requested By: Melody Stringer Order Number: [id number] Reading MD: Patel Broderick MD Measurements Intervals [place] Rate: 112 P: [place]: 0 QRS: 38 QRSD: 104 T: 95 QT: 356 QTc: 422 Interpretive Statements ATRIAL FIBRILLATION WITH RAPID VENTRICULAR RESPONSE Poor R wave progression Electronically Signed On 08-25-2016 14:25:08 EDT by Patel Broderick MD
[2016-08-25] MEDS ORDERED: *HR* Warfarin 7.5 MG TABLET PO SCH (18:00)
[2016-08-25] MEDS: Gabapentin 300 MG CAPSULE PO SCH (19:45)
[2016-08-25] MEDS ORDERED: rOPINIRole 1 MG TABLET PO SCH (21:00)
[2016-08-26 04:34] LABS: Red Cell Distribution Width 17.2 % (11.5-14.5)
[2016-08-26 04:36] LABS: Basophils % 0.4 %; Eosinophils # 0.1 K/mcL (0.0-0.6); Eosinophils % 1.5 %; Hematocrit 30.9 % (35.3-44.9); Hemoglobin 8.9 g/dL (11.5-15.4); INR 2.6; Immature Granulocytes % 0.4 % (0-4); Lymphocytes # 0.6 K/mcL (0.6-4.6); Lymphocytes % 7.5 %; Mean Corpuscular HGB Conc 28.8 g/dL (31.6-35.5); Mean Corpuscular Hemoglobin 20.2 pg (28.0-33.3); Mean Corpuscular Volume 70.1 fL (83.0-100.0); Mean Platelet Volume 10.4 fL (9.4-12.4); Monocytes # 0.7 K/mcL (0.0-1.3); Monocytes % 8.9 %; Neutrophils # 6.4 K/mcL (1.6-8.9); Nucleated Red Blood Cells 0.3 /100 WBC (0); Platelet Count 204 K/mcL (140-400); Prothrombin Time 28.9 Seconds (9.4-12.1); Red Blood Count 4.41 M/mcL (3.82-4.97); Segmented Neutrophils % 81.3 %
[2016-08-26 04:49] LABS: Hemoglobin A1C 6.6 %
[2016-08-26 04:51] LABS: Calcium 9.1 mg/dL (8.6-10.8); Potassium 4.6 mEq/L (3.5-4.5)
[2016-08-26 05:16] LABS: Anisocytosis 1+ (Not Present); Hypochromasia Present (Not Present)
[2016-08-26 05:17] LABS: Platelet Estimate Normal (Normal)
[2016-08-26] MEDS: Furosemide 40 MG TABLET PO SCH (07:48)
[2016-08-26] MEDS: Isosorbide MONOnitrate (24 HR) 30 MG TAB.ER.24H PO SCH (07:50)
[2016-08-26] MEDS: Diltiazem CD (24hr) 180 MG CAPSULE PO SCH (07:50)
[2016-08-26] MEDS: ALPRAZolam 1 MG TABLET PO SCH (07:51)
[2016-08-26] MEDS: Aspirin Enteric Coated 81 MG Tablet PO SCH (07:51)
[2016-08-26 09:24] LABS: Albumin/Globulin Ratio 0.7 (1.1-2.2); Bilirubin,Direct 0.5 mg/dL (0.0-0.5); Bilirubin,Indirect 0.4 mg/dL (0.0-1.2); Bilirubin,Total 0.9 mg/dL (0.2-1.2); Globulin 4.2 g/dL (2.4-3.5); Total Protein 7.2 g/dL (6.0-8.3)
[2016-08-26 10:59] VITALS: BP 103/60
--- NOTE | 2016-08-26 13:08 | Discharge Summary ---
Date of Encounter: 08/26/16 Time of Encounter: 10:30 - Discharge Diagnosis (1) Atrial fibrillation with RVR Priority: Primary Status: Resolved Comments: Her by mouth Cardizem dosage has been increased and she was started on low dose beta reyes. HR averaged 93 on final 12 hours of admission. Followup closely outpatient. She is therapeutic on Coumadin. (2) Atrial fibrillation Priority: Secondary Status: Chronic Qualifiers: Atrial fibrillation type: paroxysmal Qualified Code(s): I48.0 - Paroxysmal atrial fibrillation (3) Chest pain Priority: Primary Status: Resolved Comments: Patient denied chest pain on day of discharge. Qualifiers: Chest pain type: precordial pain Qualified Code(s): R07.2 - Precordial pain (4) Fibromyalgia Priority: Secondary Status: Chronic (5) Breast cancer metastasized to lung Priority: Primary Status: Inactive Comments: In review of her chart, it appears as if the patient had breast cancer status post mastectomy and left node dissection followed by chemotherapy in 2003 and 2004 with mediastinal/hilar adenopathy that had negative results on a bronchoscopy. Patient follows with pulmonology outpatient. She was seen in 2014 for increased size of her adenopathy but it does not appear as if she has been seen since 2014. Given that she was more short of breath than usual and was requiring oxygen, a chest CT was obtained which was unremarkable for acute pulmonologic processes but did reveal a suspicious finding in her liver. LFTs normal and she denied abdominal pain, follow up outpatient for CT/PET scan at primary care teams discretion Qualifiers: Laterality: unspecified laterality Qualified Code(s): C50.919 - Malignant neoplasm of unspecified site of unspecified female breast; C78.00 - Secondary malignant neoplasm of unspecified lung (6) Hypothyroid Priority: Secondary Status: Chronic Comments: TSH normal Qualifiers: Hypothyroidism type: unspecified Qualified Code(s): E03.9 - Hypothyroidism , unspecified (7) Diabetes Priority: Secondary Status: Chronic Comments: Controlled with an A1c of 6.6%. Follow-up outpatient Qualifiers: Diabetes mellitus type: type 2 Diabetes mellitus complication status: with unspecified complications Diabetes mellitus meterman insulin use: without senior living use Qualified Code(s): E11.8 - Type 2 diabetes mellitus with unspecified complications (8) Peripheral arterial disease Priority: Secondary Status: Chronic (9) DVT prophylaxis Priority: Primary Status: Acute Comments: Therapeutic on Coumadin (10) CAD (coronary artery disease) Priority: Secondary Status: Chronic Qualifiers: Coronary Disease-Associated Artery/Lesion type: unspecified vessel or lesion type [place] vs. transplanted heart: [place] heart Associated angina: with unstable angina Qualified Code(s): I25.110 - Atherosclerotic heart disease of [place] coronary artery with unstable angina pectoris (11) VHD (valvular heart disease) Priority: Secondary Status: Chronic (12) CHF exacerbation Priority: Primary Status: Acute Comments: Suspect acute on chronic diastolic heart failure. Patient had an echocardiogram on 08/05/16 that revealed an ejection fraction of 60% with indeterminate diastolic function. She is on diuretics at home, suspect chronic diastolic heart failure. Her pedal edema resolved prior to discharge and she denied shortness of breath above her norm. Follow-up outpatient. Continue furosemide and follow up closely regarding renal function (13) Hypokalemia Priority: Primary Status: Resolved (14) COPD (chronic obstructive pulmonary disease) Priority: Secondary Status: Chronic Comments: No acute exacerbation Qualifiers: COPD type: unspecified COPD Qualified Code(s): J44.9 - Chronic obstructive pulmonary disease, unspecified (15) Anticoagulated on Coumadin Priority: Secondary Status: Chronic Comments: Therapeutic during this admission (16) Edema of both legs Priority: Primary Status: Resolved (17) JEWEL (acute kidney injury) Priority: Primary Status: Acute Comments: Remained stable throughout this admission. In review of her chart, she appears to be slowly progressing towards chronic kidney disease. Follow-up closely outpatient. (18) Acute and chronic respiratory failure Priority: Secondary Status: Chronic Comments: Patient is on 2 L per nasal cannula as needed at home. Initially in this admission, patient required supplemental oxygenation but she was tolerating room air on day of discharge. She denied shortness of breath above her normal day of discharge. Qualifiers: Respiratory failure complication: unspecified whether with hypoxia or hypercapnia Qualified Code(s): J96.20 - Acute and chronic respiratory failure , unspecified whether with hypoxia or hypercapnia - Discharge Medications Prescriptions: Diltiazem CD (24hr) [Cardizem CD] 180 mg PO DAILY #30 cap.er.24h Metoprolol [Lopressor] 12.5 mg PO BID #30 tablet Home Medications: Alprazolam [Xanax] 1 mg PO TID 11/29/14 [History] Bupropion HCl [Wellbutrin] 75 mg PO BID 11/29/14 [History] Pravastatin Sodium [Pravachol] 40 mg PO HS 11/29/14 [History] Benzonatate [Tessalon] 100 mg PO TID PRN 11/17/15 [History] Furosemide [Lasix] 40 mg PO BID 11/17/15 [History] Multivitamin [Multi-Day Vitamins] 1 tab PO DAILY 11/17/15 [History] Ondansetron [Zofran] 8 mg PO Q6H PRN 11/17/15 [History] Potassium Chloride [K-Tab ER] 20 meq PO BID 11/17/15 [History] Sennosides [Senna] 8.6 mg PO HS 11/17/15 [History] Gabapentin [Neurontin] 300 mg PO HS 07/19/16 [History] Isosorbide MONOnitrate (24 HR) [Imdur] 15 mg PO DAILY 07/19/16 [History] Levothyroxine [Synthroid] 75 mcg PO 0630 07/19/16 [History] OxyCODONE Immed Rel [Roxicodone 5 MG] 10 mg PO Q6HR PRN 07/19/16 [History] Ropinirole [Requip] 1 mg PO HS 07/19/16 [History] Warfarin [Coumadin] 7.5 mg PO 6XW 07/19/16 [History] Aspirin Enteric Coated [Aspirin EC] 81 mg PO DAILY tablet. 07/22/16 [Rx] Warfarin [Coumadin] 10 mg PO MO 08/24/16 [History] Diltiazem CD (24hr) [Cardizem CD] 180 mg PO DAILY #30 cap.er.24h 08/26/16 [Rx] Metoprolol [Lopressor] 12.5 mg PO BID #30 tablet 08/26/16 [Rx] Allergies/Adverse Reactions: Allergies ciprofloxacin [From Cipro] Allergy (Verified 08/24/16 19:08) Hives acetaminophen [From Percocet] Adverse Reaction (Verified 08/24/16 19:08) Gastrointestinal Upset Procedures/tests Complete & Pending: Procedures Performed prior 72 hours Category Date Time Status CT chest w con [CT] Routine Cat Scan 08/25/16 15:00 Completed Date of admission: 08/24/16 22:14 Primary care physician: Geetha Maharaj CNP Discharging clinician: Anjana Horn Anticipated date of discharge: 08/26/16 - Patient Status Disposition: Home, Self-Care Condition: Good Functional capacity at discharge: independent ambulation Overall status at discharge: patient is progressing back to baseline - Discharge Instructions Instructions: Atrial Fibrillation (DC), Fall Prevention (GEN) Follow Up With: Geetha Maharaj CNP [Primary Care Provider] - 09/01/16 2:30 pm Additional Instructions: Follow-up with primary care provider as scheduled. - Diet and Activity Activity: increase activity as tolerated Diet: regular diet (Fluid restricted) Hospital course: Ms. 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 Patient presents emergency department chief complaint of palpitations. Patient stating that her heart had been racing for 4 days prior to presentation. Associated symptoms include shortness of breath, headache, chills, nausea as well as feeling weak and worn out. Patient also noted increased swelling to her bilateral lower extremities. Of note, patient had been trialed on Betapace in the past but had an adverse reaction to it. Workup in the emergency department revealing A. fib RVR, therapeutic Coumadin at 2.7, and hypokalemia. Chest x-ray also revealed increased right lower lobe opacity. Patient was admitted to the hospitalist service for further evaluation and management. Troponin negative 3. She was gently diuresed over the course of her two night admission. Her Cardizem dosage was increased and she remained tachycardic in the 120s and then was started on low-dose beta reyes. She was then observed over nearly 2 days and her heart rate averaged 93 during that timeframe. Her symptoms also resolved. On day of discharge, she was weaned to room air and no longer had shortness of breath or weakness. Given her history of breast cancer status post mastectomy and left node dissection followed by chemotherapy in 2003 and 2004 with mediastinal/hilar adenopathy that had negative results on a bronchoscopy. Patient follows with pulmonology outpatient. She was seen in 2013 for increased size of her adenopathy but it does not appear as if she has been seen since 2013. Given that she was more short of breath than usual and was requiring supplemental oxygen, a chest CT was obtained which did not reveal any acute pulmonologic processes but did have abnormalities noted in her liver. LFTs were normal and the patient denied abdominal pain and tolerating a regular diet. Recommend close outpatient follow -up for possible further imaging CT/PET scan at the primary care team's discretion. She was weaned to room air prior to discharge and on day of discharge, her pedal edema had resolved and she denied shortness of breath above her norm. She also denied chest pain in her atrial fibrillation rate was controlled. Regarding her renal functioning, and review for chart, it appears as if she is progressing towards chronic kidney disease, her renal functioning remained stable throughout this admission but recommend close outpatient follow- up. Possible concern for the patient's fibromyalgia actually possibly being recurrence of her cancer. She did not have any abdominal pain and her abdominal labs were normal so no workup on an inpatient basis was indicated. She was discharged home in stable condition with close outpatient follow-up recommended. ITS Impressions Chest X-Ray 08/24/16 19:30 IMPRESSION: Slight increase in right basilar opacity, may represent atelectasis or consolidation. Otherwise no significant change compared to prior radiograph. D/ / Francois Ayala MD / Francois Ayala MD Interpreting Provider: Francois Ayala MD Chest CT 08/25/16 15:00 IMPRESSION: 1. Interval improvement in appearance of bibasilar atelectasis, without acute airspace consolidation to suggest pneumonia. 2. Stable mild interstitial pulmonary edema and trace bilateral pleural effusions. 3. Chronic postsurgical pleural and parenchymal scarring within the right lung. 4. Stable chronic mediastinal lymphadenopathy. 5. Nonspecific heterogeneous enhancement of the liver, of questionable clinical significance. Given the patient's history of breast cancer, suggest further characterization with a follow-up multiphasic liver protocol CT study to exclude underlying metastatic disease. D/ / 08/25/2016 22:42:02 Bethel Reyes MD / baldo Interpreting Provider: Bethel Reyes MD - Time Spent with Patient Total time spent providing and/or coordinating discharge services: - Constitutional Vitals: Temp Pulse Resp BP Pulse Ox 97.9 F 95 16 103/60 92 08/26/16 10:58 08/26/16 10:58 08/26/16 10:58 08/26/16 10:58 08/26/16 10:58 General appearance: Present: cachectic, A&O X 3, pleasant, no acute distress, answers questions appropriately - Head Head exam: Present: atraumatic, normocephalic - Eye Eye exam: Present: PERRL, conjuntiva pink, sclera anicteric Pupils: Present: PERRL - Neck Neck exam general surgery: Present: supple, trachea midline. Absent: lymphadenopathy - Respiratory Respiratory exam: Present: accessory muscle use, decreased breath sounds. Absent: rales, respiratory distress, rhonchi, wheezes - Cardiovascular Cardiovascular exam: Present: RRR, +S1, +S2, tachycardia (mild 90's). Absent: diastolic murmur, gallop, rubs, systolic murmur - GI/Abdominal GI/Abdominal exam: Present: normal bowel sounds, soft, no peritoneal signs. Absent: distended, tenderness - Extremities Exam Extremities exam: Present: warm, radial pulses palpable and symetrical. Absent : calf tenderness, cyanotic, pedal edema - Neurological Exam Neurological exam: Present: alert, CN II-XII intact, oriented X3, no focal deficits, strengths equal and symetr throughout. Absent: pronater drift, facial droop, speech deficit - Skin Skin exam: Present: dry, intact, pallor, warm
--- NOTE | 2016-08-27 17:37 | Electrocardiograph Report ---
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
[2016-08-30] MEDS ORDERED: *HR* Warfarin 10 MG TABLET PO SCH (18:00)
== END 2016-08-26 15:05 | disposition home or self-care (01) ==
LOC: 3BNU 19:07 → EMEROO 19:07 → 3BNU 23:00
PROVIDERS: ADMIT Nurse Practitioner Family; ATTEND Nurse Practitioner Family

== ENCOUNTER 2016-09-16 17:23 | Inpatient (IN) ==
--- NOTE | 2016-09-16 17:58 | Emergency Department Note ---
Disposition Clinical Impression: CHF exacerbation Qualifiers: Congestive heart failure type: unspecified congestive heart failure type Qualified Code(s): I50.9 - Heart failure, unspecified Dyspnea Qualifiers: Dyspnea type: unspecified Qualified Code(s): R06.00 - Dyspnea, unspecified Disposition: Admitted As Inpatient Condition: Fair SOB HPI - General Chief Complaint: ED Shortness of Breath/Dyspnea Stated Complaint: SHEREEN and weight gain Source: patient, EMS Limitations: no limitations Nursing Notes Reviewed: Yes Vital Signs Reviewed: Yes - History of Present Illness He is a 70year-old female with a history of congestive heart failure states she has had increasing edema weight gain the last 3-4 days. She also has oxygen that she uses when necessary as needed this constantly symptoms worsening more today. Pt Subjective Complaint: shortness of breath Onset (ago): day(s) (5) Severity: moderate Consistency/Duration: constant, gradually worsening Improves with: oxygen, rest Worsens with: exertion Known history of: COPD, congestive heart failure Treatment prior to arrival: oxygen Cough present: No - Related Data Home oxygen amount: 2 liters Home Medications Medication Instructions Recorded Confirmed Alprazolam [Xanax] 1 mg PO TID 11/29/14 09/16/16 Bupropion HCl [Wellbutrin] 75 mg PO BID 11/29/14 09/16/16 Pravastatin Sodium [Pravachol] 40 mg PO HS 11/29/14 09/16/16 Benzonatate [Tessalon] 100 mg PO TID PRN 11/17/15 09/16/16 Furosemide [Lasix] 40 mg PO BID 11/17/15 09/16/16 Multivitamin [Multi-Day Vitamins] 1 tab PO DAILY 11/17/15 09/16/16 Ondansetron [Zofran] 8 mg PO Q6H PRN 11/17/15 09/16/16 Potassium Chloride [K-Tab ER] 10 meq PO BID 11/17/15 09/16/16 Sennosides [Senna] 8.6 mg PO HS 11/17/15 09/16/16 Gabapentin [Neurontin] 300 mg PO HS 07/19/16 09/16/16 Isosorbide MONOnitrate (24 HR) 15 mg PO DAILY 07/19/16 09/16/16 [Imdur] Levothyroxine [Synthroid] 75 mcg PO 0630 03/27/17 05/25/17 OxyCODONE Immed Rel [Roxicodone 5 10 mg PO Q6HR PRN 07/19/16 09/16/16 MG] Warfarin [Coumadin] 7.5 mg PO SUTUWETHFRSA 07/19/16 09/16/16 rOPINIRole [Requip] 1 mg PO HS 07/19/16 09/16/16 Warfarin [Coumadin] 10 mg PO MO 08/24/16 09/16/16 Nystatin [Nystatin Suspension] 200,000 unit BC QID 09/16/16 09/16/16 Previous Rx's Medication Instructions Recorded Aspirin Enteric Coated [Aspirin EC] 81 mg PO DAILY tablet. 07/22/16 Diltiazem CD (24hr) [Cardizem CD] 180 mg PO DAILY #30 cap.er.24h 08/26/16 Metoprolol [Lopressor] 12.5 mg PO BID #30 tablet 08/26/16 Allergies Allergy/AdvReac Type Severity Reaction Status Date / Time ciprofloxacin [From Cipro] Allergy Hives Verified 08/24/16 19:08 acetaminophen [From Percocet] AdvReac Gastrointestinal Verified 08/24/16 19:08 Upset All systems ED: reviewed and negative except as stated. Constitutional: Denies: fever, chills Cardiovascular: Reports: dyspnea on exertion, edema Past Medical History - Past Medical History Source: patient, old records reviewed, obtained from family, nursing notes reviewed Medical history: Reports: atrial fibrillation, cancer, cardiomyopathy, CHF, COPD , coronary artery disease, fibromyalgia, GI bleed, hyperlipidemia, malignancy, peripheral artery disease, thyroid disease, valvular heart disease Surgical history: Reports: angioplasty/stent, breast surgery, cancer surgery, carotid endarterectomy, cataract, cholecystectomy, colectomy, coronary bypass ( CABG), heart valve replacement, hysterectomy, pacemaker/AICD, other Psychiatric history: Reports: anxiety CHIEF TECHNOLOGY OFFICER history: Reports: no CHIEF TECHNOLOGY OFFICER history - Social History Smoking Status: Former smoker Smokeless Tobacco Status: No Alcohol use: Reports: none Drug use: Reports: none Physical Exam - General Limitations: no limitations General appearance: alert, in no apparent distress - Head Head exam: atraumatic, normocephalic, normal inspection - Eye Eye exam: Present: normal appearance, PERRL, EOMI - Expanded Eye Exam Pupils: Left: reactive - ENT ENT exam: normal exam, normal oropharynx, mucous membranes moist - Expanded ENT Exam External ear exam: Present: normal external inspection Mouth exam: Present: normal external inspection Teeth exam: Present: normal inspection Throat exam: Present: normal inspection - Neck Neck exam: Present: normal inspection, full ROM, trachea midline - Chest Chest inspection: Present: normal inspection, symmetric chest wall rise - Respiratory Respiratory exam: Present: prolonged expiratory phase. Absent: wheezes, stridor - Cardiovascular Cardiovascular exam: Present: other (BILAT 2+ LE EDEMA) - Abdominal Exam Abdominal exam: Present: soft, Non-Tender. Absent: tenderness, distention, guarding, rebound, rigidity - Extremities Exam Extremities exam: Present: normal inspection, full ROM. Absent: tenderness, pedal edema - Expanded Upper Extremity Exam Shoulder exam: Present: normal inspection, full ROM Arm exam: Present: normal inspection, full ROM Elbow exam: Present: normal inspection, full ROM Forearm/Wrist exam: Present: normal inspection, full ROM Hand exam: Present: normal inspection, full ROM Vascular exam: Normal: capillary refill, radial pulse - Expanded Lower Extremity Exam Hip/Pelvis exam: Present: normal inspection, full ROM Upper leg exam: Present: normal inspection, full ROM Knee exam: Present: normal inspection, full ROM Lower leg exam: Present: normal inspection, full ROM Ankle exam: Present: normal inspection, full ROM Foot/toe exam: Present: normal inspection, full ROM Neurovascular/Tendon exam: Absent: motor deficit, sensory deficit, tendon deficit - Back Exam Back exam: Present: normal inspection, full ROM. Absent: tenderness - Neurological Exam Neurological exam: Present: alert, oriented X3 - Expanded Neurological Exam Patient oriented to: Present: person, place, time Coma Scale Eye Opening: Spontaneous Coma Scale Motor Response: Obeys Commands Coma Scale Verbal Response: Oriented Coma Scale Total: 15 - Psychiatric Psychiatric exam: Present: normal affect, normal mood - Skin Skin exam: Present: warm, dry, intact, normal color Course Course Narrative: DR. GARCIA ACCEPTS Vital Signs Temperature 97.9 F 09/16/16 17:33 Pulse Rate 94 09/16/16 17:33 Respiratory Rate 16 09/16/16 17:33 Blood Pressure 117/69 09/16/16 17:33 O2 Sat by Pulse Oximetry 100 09/16/16 17:33 Temperature 97.6 F 09/17/16 06:55 Pulse Rate 104 09/17/16 06:55 Respiratory Rate 16 09/17/16 06:55 Blood Pressure 101/65 09/17/16 06:55 O2 Sat by Pulse Oximetry 95 09/17/16 06:55 Oxygen Delivery Oxygen Delivery Nasal Cannula Shortness of Breath/Dyspnea - Differential Diagnosis Likely: acute exacerbation of chronic obstructive airways disease, congestive heart failure, pneumonia, pulmonary embolism, pneumothorax, arrhythmia - Medical Records Medical records reviewed: Yes I reviewed the patient's medical records. - Lab Data Lab results reviewed: Yes I reviewed the patient's lab results. Result diagrams: 09/17/16 03:37 09/16/16 18:08 Lab Results 09/16/16 09/16/16 09/16/16 Range/Units 18:08 18:08 18:08 WBC 6.0 (4.3-11.1) K/mcL RBC 4.71 (3.82-4.97) M/mcL Hgb 9.0 L (11.5-15.4) g/dL Hct 32.1 L (35.3-44.9) % MCV 68.2 L (83.0-100.0) fL MCH 19.1 L (28.0-33.3) pg MCHC 28.0 L (31.6-35.5) g/dL RDW 17.1 H (11.5-14.5) % Plt Count 205 (140-400) K/mcL MPV 9.4 (9.4-12.4) fL Immature Gran % 0.2 (0-4) % Seg Neutrophils % 75.3 % Lymphocytes % 12.2 % Monocytes % 10.2 % Eosinophils % 1.3 % Basophils % 0.8 % Neutrophils # 4.5 (1.6-8.9) K/mcL Lymphocytes # 0.7 (0.6-4.6) K/mcL Monocytes # 0.6 (0.0-1.3) K/mcL Eosinophils # 0.1 (0.0-0.6) K/mcL Basophils # 0.1 (0.0-0.2) K/mcL Nucleated RBCs/100 WBC 0.3 H (0) /100 WBC Platelet Estimate Normal (Normal) Polychromasia 1+ A (Not Present) Hypochromasia Present A (Not Present) Anisocytosis 1+ A (Not Present) Microcytosis Present A (Not Present) Target Cells 1+ A (Not Present) PT 40.8 H (9.4-12.1) Seconds INR 3.6 APTT 37.6 H (26.0-36.0) Seconds Sodium 138 (136-145) mEq/L Potassium 3.3 L (3.5-4.5) mEq/L Chloride 103 (98-109) mEq/L Carbon Dioxide 28 (19-29) mEq/L BUN 40 H (7-20) mg/dL Creatinine 0.89 (0.57-1.11) mg/dL Est GFR ( Amer) > 60 (> 60) Est GFR (Non-Af Amer) > 60 (> 60) BUN/Creatinine Ratio 45 H (6-26) Glucose 117 H (70-99) mg/dL Calculated Osmolality 297 (280-300) Lactic Acid (0.5-2.2) mmol/L Calcium 9.0 (8.6-10.8) mg/dL Troponin I (0-0.03) ng/mL B-Natriuretic Peptide (0-100) pg/mL 09/16/16 09/16/16 09/16/16 Range/Units 18:08 18:08 18:08 WBC (4.3-11.1) K/mcL RBC (3.82-4.97) M/mcL Hgb (11.5-15.4) g/dL Hct (35.3-44.9) % MCV (83.0-100.0) fL MCH (28.0-33.3) pg MCHC (31.6-35.5) g/dL RDW (11.5-14.5) % Plt Count (140-400) K/mcL MPV (9.4-12.4) fL Immature Gran % (0-4) % Seg Neutrophils % % Lymphocytes % % Monocytes % % Eosinophils % % Basophils % % Neutrophils # (1.6-8.9) K/mcL Lymphocytes # (0.6-4.6) K/mcL Monocytes # (0.0-1.3) K/mcL Eosinophils # (0.0-0.6) K/mcL Basophils # (0.0-0.2) K/mcL Nucleated RBCs/100 WBC (0) /100 WBC Platelet Estimate (Normal) Polychromasia (Not Present) Hypochromasia (Not Present) Anisocytosis (Not Present) Microcytosis (Not Present) Target Cells (Not Present) PT (9.4-12.1) Seconds INR APTT (26.0-36.0) Seconds Sodium (136-145) mEq/L Potassium (3.5-4.5) mEq/L Chloride (98-109) mEq/L Carbon Dioxide (19-29) mEq/L BUN (7-20) mg/dL Creatinine (0.57-1.11) mg/dL Est GFR ( Amer) (> 60) Est GFR (Non-Af Amer) (> 60) BUN/Creatinine Ratio (6-26) Glucose (70-99) mg/dL Calculated Osmolality (280-300) Lactic Acid 1.0 (0.5-2.2) mmol/L Calcium (8.6-10.8) mg/dL Troponin I 0.01 (0-0.03) ng/mL B-Natriuretic Peptide 479 H (0-100) pg/mL 09/16/16 09/16/16 Range/Units 19:38 21:46 WBC (4.3-11.1) K/mcL RBC (3.82-4.97) M/mcL Hgb (11.5-15.4) g/dL Hct (35.3-44.9) % MCV (83.0-100.0) fL MCH (28.0-33.3) pg MCHC (31.6-35.5) g/dL RDW (11.5-14.5) % Plt Count (140-400) K/mcL MPV (9.4-12.4) fL Immature Gran % (0-4) % Seg Neutrophils % % Lymphocytes % % Monocytes % % Eosinophils % % Basophils % % Neutrophils # (1.6-8.9) K/mcL Lymphocytes # (0.6-4.6) K/mcL Monocytes # (0.0-1.3) K/mcL Eosinophils # (0.0-0.6) K/mcL Basophils # (0.0-0.2) K/mcL Nucleated RBCs/100 WBC (0) /100 WBC Platelet Estimate (Normal) Polychromasia (Not Present) Hypochromasia (Not Present) Anisocytosis (Not Present) Microcytosis (Not Present) Target Cells (Not Present) PT (9.4-12.1) Seconds INR APTT (26.0-36.0) Seconds Sodium (136-145) mEq/L Potassium (3.5-4.5) mEq/L Chloride (98-109) mEq/L Carbon Dioxide (19-29) mEq/L BUN (7-20) mg/dL Creatinine (0.57-1.11) mg/dL Est GFR ( Amer) (> 60) Est GFR (Non-Af Amer) (> 60) BUN/Creatinine Ratio (6-26) Glucose (70-99) mg/dL Calculated Osmolality (280-300) Lactic Acid 1.4 (0.5-2.2) mmol/L Calcium (8.6-10.8) mg/dL Troponin I 0.02 (0-0.03) ng/mL B-Natriuretic Peptide (0-100) pg/mL - Radiology Data Radiology results reviewed: Yes I reviewed the patient's radiology results. - EKG Data EKG attestation: Yes I reviewed and interpreted this EKG. EKG shows normal: Reports: sinus rhythm Rate: Reports: normal (95) Rhythm: Reports: NSR Interpretation: Reports: nonspecific ST-T wave changes Critical Care Time Critical Care Time: Yes Total Critical Care Time: 35 Attestation: Critical care performed: Time is exclusive of separately billable procedures. Time includes: direct patient care, patient reassessment, coordination of patient care, interpretation of data (laboratory data, radiology data, and respiratory data), review of patient's medical records, medical consultation and documentation of patient care. Procedures included in critical care time: Procedures excluded from critical care time:
[2016-09-16 18:15] LABS: Eosinophils % 1.3 %; Mean Corpuscular Volume 68.2 fL (83.0-100.0); Nucleated Red Blood Cells 0.3 /100 WBC (0)
[2016-09-16 18:16] LABS: Basophils # 0.1 K/mcL (0.0-0.2); Basophils % 0.8 %; Eosinophils # 0.1 K/mcL (0.0-0.6); Hematocrit 32.1 % (35.3-44.9); Immature Granulocytes % 0.2 % (0-4); Lymphocytes # 0.7 K/mcL (0.6-4.6); Lymphocytes % 12.2 %; Mean Corpuscular Hemoglobin 19.1 pg (28.0-33.3); Mean Platelet Volume 9.4 fL (9.4-12.4); Monocytes # 0.6 K/mcL (0.0-1.3); Monocytes % 10.2 %; Neutrophils # 4.5 K/mcL (1.6-8.9); Platelet Count 205 K/mcL (140-400); Red Blood Count 4.71 M/mcL (3.82-4.97); Red Cell Distribution Width 17.1 % (11.5-14.5); Segmented Neutrophils % 75.3 %
[2016-09-16 18:24] LABS: INR 3.6; Prothrombin Time 40.8 Seconds (9.4-12.1)
[2016-09-16 18:27] LABS: Activated Partial Thrombo Time 37.6 Seconds (26.0-36.0)
[2016-09-16 18:30] LABS: BUN/Creatinine Ratio 45 (6-26); Blood Urea Nitrogen 40 mg/dL (7-20); Carbon Dioxide 28 mEq/L (19-29); Chloride 103 mEq/L (98-109); Glucose 117 mg/dL (70-99); Osmolality,Calculated 297 (280-300); Potassium 3.3 mEq/L (3.5-4.5); Sodium 138 mEq/L (136-145); eGFR For African Americans > 60 (> 60); eGFR For Non-African Americans > 60 (> 60)
[2016-09-16 18:33] LABS: Anisocytosis 1+ (Not Present); Hypochromasia Present (Not Present); Microcytosis Present (Not Present); Target Cells 1+ (Not Present)
[2016-09-16 18:35] LABS: Platelet Estimate Normal (Normal); Polychromasia 1+ (Not Present)
[2016-09-16] MEDS ORDERED: Furosemide 40 MG/4 ML VIAL IVP ONE (19:03)
[2016-09-16] MEDS ORDERED: Ipratropium/Albuterol Neb 3 ML IH ONE (19:11)
[2016-09-16] MEDS ORDERED: *HR* OxyCODONE/APAP 5/325 TABLET PO ONE (19:29)
[2016-09-16] MEDS ORDERED: Benzonatate 100 MG CAPSULE PO PRN (21:27)
[2016-09-16] MEDS ORDERED: *HR* OxyCODONE Immed Rel 5 MG TABLET PO PRN (21:27)
[2016-09-16] MEDS ORDERED: Naloxone 0.4 MG/ML INJ IVP PRN (21:28)
--- NOTE | 2016-09-16 21:39 | Internal Med History&Physical ---
Date of Encounter: 09/16/16 Time of Encounter: 21:37 Assessment and Plan (1) Diastolic CHF due to valvular disease Current visit: Yes Status: Acute TTE 08/09/16 with evidence of diabetic diastolic dysfunction, EF 60%. BNP 479. With significant lower extremity edema and slight rales on exam. Suspect component of dietary noncompliance. Continue IV Lasix started in the ED. daily weights, I & O (2) Atrial fibrillation Current visit: No Status: Chronic Per history, rate controlled. Continue home CCB and BB. INR 3.7, hold at this time. Pharmacy to dose Qualifiers: Atrial fibrillation type: paroxysmal Qualified Code(s): I48.0 - Paroxysmal atrial fibrillation (3) CAD (coronary artery disease) Current visit: No Status: Chronic Per history with remote PCI. Asymptomatic, denies chest pain. Continue home ASA, BTB, statin. Monitor on telemetry Qualifiers: Qualified Code(s): I25.10 - Atherosclerotic heart disease of [place] coronary artery without angina pectoris (4) VHD (valvular heart disease) Current visit: No Status: Chronic Per history. Continue Coumadin per pharmacy dosing (5) Anemia Current visit: Yes Status: Acute Hgb 9, baseline appears to be around 11-12 and has been trending down since 2015. No obvious bleeding on exam. Check occult stool as she is on anticoagulation. Intermittently monitor Hgb consider GI consult if trending down Qualifiers: Anemia type: unspecified type Qualified Code(s): D64.9 - Anemia, unspecified (6) DVT prophylaxis Current visit: No Status: Acute Supratherapeutic INR, SCDs. Resume Coumadin per pharmacy dosing Internal Medicine - H&P: HPI Chief complaint: Weight gain and shortness of breath Admitted From: Home Plans for Post Hospital Care: Home History of present illness: Ms. Monte is a 70 year old female with past medical history paroxysmal A. fib and valvular heart disease on Coumadin, diastolic heart failure and CAD who presented to [facility] on 09/16/2016 with complaints of shortness of breath and a 20 pound weight gain. She was found to be in a mild CHF exacerbation and was admitted for IV diuresis. Information obtained from chart review and patient report. Patient reports gaining 20 pounds over the last 2 weeks and was advised to come to the ER per PCP. Says she takes Lasix at home and has been taken as prescribed however she does not watch the salt in her diet. She also reports shortness of breath worsening over the past couple weeks. Says she gets winded easy and has to stop and catch breath. No chest pain has a nonproductive cough no no fevers or chills. Past Med Surg Social Fam HX - Past Medical History Medical history: atrial fibrillation, cancer, cardiomyopathy, CHF, COPD, coronary artery disease, fibromyalgia, GI bleed, hyperlipidemia, malignancy, peripheral artery disease, thyroid disease, valvular heart disease Psychiatric history: anxiety - Past Surgical History Surgical History: angioplasty/stent, breast surgery, cancer surgery, carotid endarterectomy, cataract, cholecystectomy, colectomy, coronary bypass (CABG), heart valve replacement, hysterectomy, pacemaker/AICD, other - Social History Smoking Status: Former smoker Smokeless Tobacco Status: No Alcohol use: none Drug use: none - Family History Mother Adopted: No Family Member Ethnicity: Unknown Living Status: Hx Family Cardiac Disorders: Yes ([place]) Hx Family Endocrine Disorder: Yes (DIABETES MELLITUS.) Father Living Status: Hx Family Cardiac Disorders: Yes - Additional Family History Additional family history: Reviewed and noncontributory Internal Medicine - H&P: Meds Alprazolam [Xanax] 1 mg PO TID 11/29/14 [History] Bupropion HCl [Wellbutrin] 75 mg PO BID 11/29/14 [History] Pravastatin Sodium [Pravachol] 40 mg PO HS 11/29/14 [History] Benzonatate [Tessalon] 100 mg PO TID PRN 11/17/15 [History] Furosemide [Lasix] 40 mg PO BID 11/17/15 [History] Multivitamin [Multi-Day Vitamins] 1 tab PO DAILY 11/17/15 [History] Ondansetron [Zofran] 8 mg PO Q6H PRN 11/17/15 [History] Potassium Chloride [K-Tab ER] 10 meq PO BID 11/17/15 [History] Sennosides [Senna] 8.6 mg PO HS 11/17/15 [History] Gabapentin [Neurontin] 300 mg PO HS 07/19/16 [History] Isosorbide MONOnitrate (24 HR) [Imdur] 15 mg PO DAILY 07/19/16 [History] Levothyroxine [Synthroid] 75 mcg PO 0630 07/19/16 [History] OxyCODONE Immed Rel [Roxicodone 5 MG] 10 mg PO Q6HR PRN 07/19/16 [History] Warfarin [Coumadin] 7.5 mg PO SUTUWETHFRSA 07/19/16 [History] rOPINIRole [Requip] 1 mg PO HS 07/19/16 [History] Aspirin Enteric Coated [Aspirin EC] 81 mg PO DAILY tablet. 07/22/16 [Rx] Warfarin [Coumadin] 10 mg PO MO 08/24/16 [History] Diltiazem CD (24hr) [Cardizem CD] 180 mg PO DAILY #30 cap.er.24h 08/26/16 [Rx] Metoprolol [Lopressor] 12.5 mg PO BID #30 tablet 08/26/16 [Rx] Nystatin [Nystatin Suspension] 200,000 unit BC QID 09/16/16 [History] Allergies ciprofloxacin [From Cipro] Allergy (Verified 08/24/16 19:08) Hives acetaminophen [From Percocet] Adverse Reaction (Verified 08/24/16 19:08) Gastrointestinal Upset All Systems PM: A 10-system review of systems was performed and is negative for pertinent findings except as documented above in the HPI. - Constitutional Constitutional: no chills, no fever(s), no night sweats - EENT Eyes: no change in vision, no discharge, no pain, no photophobia Ears: no ear discharge, no ear pain, no tinnitus Nose, mouth and throat: no dysphagia, no nasal discharge, no neck pain, no sore throat - Cardiovascular Cardiovascular ROS IM: edema, no chest pain, no diaphoresis, no dyspnea, no lightheadedness, no palpitations, no syncope - Respiratory Respiratory: cough, dyspnea on exertion, no dyspnea, no wheezing, no excessive phlegm production - Gastrointestinal Gastrointestinal: no abdominal pain, no diarrhea, no hematemesis, no hematochezia, no melena, no nausea, no vomiting - Genitourinary Genitourinary: no change in urinary stream, no dysuria, no flank pain, no hematuria - Musculoskeletal Musculoskeletal ROS IM: no numbness, no tingling - Integumentary Integumentary IM: no rash, no unusual bruising - Neurological Neurological ROS: no confusion, no convulsions, no focal weakness, no numbness, no tingling, no tremor(s) - Hematologic/Lymphatic Hematologic/Lymphatic: no easy bruising - Constitutional Vitals: Temp Pulse Resp BP Pulse Ox 97.8 F 93 18 118/62 97 09/16/16 20:32 09/16/16 20:32 09/16/16 20:32 09/16/16 20:32 09/16/16 20:32 General appearance: Present: A&O X 3, no acute distress - Head Head exam: Present: atraumatic, normocephalic - Eye Eye exam: Present: PERRL, conjuntiva pink, sclera anicteric Pupils: Present: PERRL - Neck Neck exam general surgery: Present: supple, trachea midline. Absent: lymphadenopathy - Respiratory Respiratory exam: Present: CTAB, rales. Absent: accessory muscle use, rhonchi, wheezes - Cardiovascular Cardiovascular exam: Present: RRR, +S1, +S2. Absent: diastolic murmur, gallop, rubs, systolic murmur Additional comments: Pitting edema up to thighs - GI/Abdominal GI/Abdominal exam: Present: normal bowel sounds, soft, no peritoneal signs. Absent: distended, tenderness - Extremities Exam Extremities exam: Present: warm, radial pulses palpable and symetrical. Absent : calf tenderness, cyanotic, pedal edema - Neurological Exam Neurological exam: Present: CN II-XII intact, oriented X3, no focal deficits. Absent: pronater drift, facial droop, speech deficit - Skin Skin exam: Present: dry, intact Internal Med - H&P Results - Labs CBC & Chem 7: 09/16/16 18:08 09/16/16 18:08
--- NOTE | 2016-09-16 22:28 | Event Note ---
Date of Encounter: 09/16/16 Time of Encounter: 22:26 Patient seen and examined with nurse michael. Agree with that assessment and plan. Patient with history of congestive heart failure, aortic and mitral bio prosthesis, atrial fibrillation presents with acute congestive heart failure exacerbations due to left ventricular diastolic dysfunction and atrial fibrillation with slightly uncontrolled ventricular response. Patient takes Lasix 40 mg PO twice a day at home. She has been noticing about 10 pounds weight gain in the past 2 weeks. We will start the patient on Lasix 40 mg IV twice a day. Strict intake and output and evaluate. Will need higher those Lasix on discharge. 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 INR's 3.6. Potassium is 3.3 and this will be replaced. She is full code. Inpatient admission.
[2016-09-17] MEDS: ALPRAZolam 1 MG TABLET PO SCH ×3 (00:11→14:46)
[2016-09-17] MEDS: rOPINIRole 1 MG TABLET PO SCH ×2 (00:11→21:01)
[2016-09-17] MEDS: Gabapentin 300 MG CAPSULE PO SCH ×2 (00:12→20:59)
[2016-09-17 03:53] LABS: INR 3.2; Prothrombin Time 35.7 Seconds (9.4-12.1)
[2016-09-17 03:55] LABS: Hemoglobin 8.3 g/dL (11.5-15.4); Monocytes % 11.9 %
[2016-09-17 03:58] LABS: Basophils # 0.1 K/mcL (0.0-0.2); Eosinophils # 0.1 K/mcL (0.0-0.6); Eosinophils % 2.3 %; Hematocrit 30.1 % (35.3-44.9); Immature Granulocytes % 0.4 % (0-4); Lymphocytes # 0.9 K/mcL (0.6-4.6); Lymphocytes % 17.8 %; Mean Corpuscular HGB Conc 27.6 g/dL (31.6-35.5); Mean Corpuscular Hemoglobin 18.9 pg (28.0-33.3); Mean Corpuscular Volume 68.7 fL (83.0-100.0); Mean Platelet Volume 9.7 fL (9.4-12.4); Monocytes # 0.6 K/mcL (0.0-1.3); Neutrophils # 3.2 K/mcL (1.6-8.9); Nucleated Red Blood Cells 0.4 /100 WBC (0); Platelet Count 188 K/mcL (140-400); Red Blood Count 4.38 M/mcL (3.82-4.97); Red Cell Distribution Width 17.3 % (11.5-14.5); Segmented Neutrophils % 66.6 %
[2016-09-17 04:03] LABS: Albumin 2.7 g/dL (3.5-5.0); Albumin/Globulin Ratio 0.7 (1.1-2.2); Bilirubin,Direct 0.6 mg/dL (0.0-0.5); Bilirubin,Indirect 0.5 mg/dL (0.0-1.2); Bilirubin,Total 1.1 mg/dL (0.2-1.2); Total Protein 6.7 g/dL (6.0-8.3)
[2016-09-17 04:19] LABS: Anisocytosis 1+ (Not Present); Hypochromasia Present (Not Present); Microcytosis Present (Not Present); Platelet Estimate Normal (Normal); Polychromasia 1+ (Not Present)
[2016-09-17] MEDS ORDERED: ALPRAZolam 1 MG TABLET PO SCH (09:00)
[2016-09-17 09:33] LABS: % Iron Saturation 3 % (15-50); Iron 14 mcg/dL (50-170); Transferrin 317 mg/dL (180-382)
[2016-09-17] MEDS: Diltiazem CD (24hr) 180 MG CAPSULE PO SCH (09:58)
[2016-09-17] MEDS: Isosorbide MONOnitrate (24 HR) 30 MG TAB.ER.24H PO SCH (09:58)
[2016-09-17] MEDS: Aspirin Enteric Coated 81 MG Tablet PO SCH (09:59)
[2016-09-17 10:09] LABS: Folate 9.5 ng/mL (7.0-31.4)
[2016-09-17] MEDS: Furosemide 40 MG/4 ML VIAL IVP SCH ×2 (10:14→17:20)
--- NOTE | 2016-09-17 12:59 | Internal Med Progress Note ---
Date of Encounter: 09/17/16 Time of Encounter: 09:00 - Assessment and plan (1) Diastolic CHF due to valvular disease Current Visit: Yes Status: Acute Assessment and plan: Patient's ejection fraction is 60%, BNP is 479. She reports a 20 pound weight gain in approximately one month. She reports that she had increasing shortness of breath and peripheral edema. She had dyspnea on exertion and was unable to button her pants. We will continue IV Lasix, daily weights, strict I and O. Continue telemetry (2) Anemia Current Visit: Yes Status: Acute Assessment and plan: Patient reports a lengthy history of chronic anemia. She is currently not treated for and states that her primary care physician is just watching it. She says hemoglobin of 9-10 is normal for her. Hemoglobin today is 8.3. This could potentially be due to fluid overload. Patient states that she is fatigued normally and has been for years. Patient states that she used to get B12 injections and did very well. She said she has not had any for years since she changed primary care physicians. Patient's red blood cell count is within normal limits. Hemoglobin 8.3, hematocrit 30.1 MCV is low at 68.7 and MCH is 18.9. On the peripheral smear, cells are microcytic and hyperchromic. Iron is low at 14% saturation is low at 3. Vitamin B12 and folate are both within normal limits. I will start patient on iron supplementation and Colace. I will also put in a type and screen in preparation for possible transfusion. I will also put in an occult stool lab. Labs in the morning Continue to monitor patient Qualifiers: Anemia type: iron deficiency Iron deficiency anemia type: unspecified iron deficiency Qualified Code(s): D50.9 - Iron deficiency anemia, unspecified (3) Atrial fibrillation Current Visit: No Status: Chronic Assessment and plan: Chronic. His weight controlled with beta reyes. Patient also takes Coumadin. INR is 3.7 and is being held at this time. Pharmacy to dose. Qualifiers: Atrial fibrillation type: paroxysmal Qualified Code(s): I48.0 - Paroxysmal atrial fibrillation (4) Diabetes Current Visit: No Status: Chronic Assessment and plan: A1c is 6.6%. Sliding scale insulin Hypoglycemia protocol Accu-Cheks before meals at bedtime Diabetic diet Qualifiers: Diabetes mellitus type: type 2 Diabetes mellitus complication status: with unspecified complications Diabetes mellitus assisted insulin use: without pharmacy teacher use Qualified Code(s): E11.8 - Type 2 diabetes mellitus with unspecified complications (5) Heart murmur on physical examination Current Visit: No Status: Chronic (6) CAD (coronary artery disease) Current Visit: No Status: Chronic Assessment and plan: Chronic. Patient denies chest pain. Patient is on telemetry Continue aspirin, beta reyes and statin. Qualifiers: Coronary Disease-Associated Artery/Lesion type: unspecified vessel or lesion type [place] vs. transplanted heart: [place] heart Associated angina: angina presence unspecified Qualified Code(s): I25.10 - Atherosclerotic heart disease of [place] coronary artery without angina pectoris (7) VHD (valvular heart disease) Current Visit: No Status: Chronic Assessment and plan: Patient has prosthetic valves. She has a 4/6 murmur left sternal border. Patient is on Coumadin INR is supra therapeutic. Pharmacy to dose (8) DVT prophylaxis Current Visit: No Status: Acute Assessment and plan: SCD. - Time Spent With Patient less than 15 minutes - Subjective Interval history: Patient was seen and assessed at about 9 AM. Patient is an exceptionally pleasant older woman who complains of increasing shortness of breath and peripheral edema. She says that she has had a 20 pound weight gain in the last month. She said it all began when she was in the hospital for A. fib in July. She says she was having difficulty walking at home due to [place], she said she was unable to button her pants due to weight gain. Patient states that she has chronic anemia and is not treated for it. She states hemoglobin is normally 9010. She reports that she is normally fatigued and has been for years. She says that she used to get vitamin B12 injections and has not in the past several years since she changed physicians. I asked her what her, treatment plan was for her anemia, she says "nothing, the doctor just watches it." Hemoglobin dropped to 8.3 today, could potentially just be from fluid overload from CHF. We will continue to monitor - Constitutional Vitals: Temp Pulse Resp BP Pulse Ox 97.6 F 90 18 117/65 99 09/17/16 11:41 09/17/16 11:41 09/17/16 11:41 09/17/16 11:41 09/17/16 11:41 General appearance: Present: cooperative, A&O X 3, pleasant, no acute distress, answers questions appropriately - Head Head exam: Present: normal inspection - Eye Eye exam: Present: normal appearance, nystagmus, conjuntiva pink - ENT ENT exam: Present: mucous membranes moist, normal exam, normal oropharynx - Neck Neck exam general surgery: Present: normal inspection. Absent: lymphadenopathy , tenderness - Respiratory Respiratory exam: Present: decreased breath sounds, CTAB. Absent: accessory muscle use, chest wall tenderness, rales, respiratory distress, rhonchi, stridor , wheezes - Cardiovascular Cardiovascular exam: Present: RRR, +S1, +S2. Absent: diastolic murmur, systolic murmur - GI/Abdominal GI/Abdominal exam: Present: distended, normal bowel sounds, soft. Absent: hepatomegaly, tenderness - Neurological Exam Neurological exam: Present: alert, oriented X3, no focal deficits, strengths equal and symetr throughout. Absent: facial droop, speech deficit Internal Medicine: Result - Labs CBC & Chem 7: 09/17/16 03:37 09/16/16 18:08 Labs: Short CBC 09/17/16 Range/Units 03:37 WBC 4.8 (4.3-11.1) K/mcL Hgb 8.3 L (11.5-15.4) g/dL Hct 30.1 L (35.3-44.9) % Plt Count 188 (140-400) K/mcL Neutrophils # 3.2 (1.6-8.9) K/mcL Cardiac Enzymes 09/17/16 09/17/16 Range/Units 03:37 08:26 Troponin I 0.01 0.02 (0-0.03) ng/mL Liver Function 09/17/16 Range/Units 03:37 Total Bilirubin 1.1 (0.2-1.2) mg/dL Direct Bilirubin 0.6 H (0.0-0.5) mg/dL AST 24 (5-34) Units/L ALT 15 (0-55) Units/L Alkaline Phosphatase 92 (38-126) Units/L Albumin 2.7 L (3.5-5.0) g/dL - ABG Interpretation ABG results: PT/INR, D-dimer PT 35.7 Seconds (9.4-12.1) H 09/17/16 03:37 Consult Discharge Plan - Plan Referrals: Geetha Maharaj CNP [Primary Care Provider] - 09/24/16 1:00 pm
[2016-09-17] MEDS ORDERED: ALPRAZolam 1 MG TABLET PO PRN (14:48)
--- NOTE | 2016-09-17 16:35 | Electrocardiograph Report ---
[address] [place], [place] [address] Test Date: 2016-09-16 Pat Name: Abbey Monte Department: 104 Room: 3B23 Gender: F [employer] Manager: : 1945 Requested By: Tan Allison Order Number: [id number] Reading MD: Ambika Espitia Measurements Intervals [place] Rate: 95 P: 60 ID: [id number] QRS: 85 QRSD: 100 T: 88 QT: 393 QTc: 445 Interpretive Statements SINUS RHYTHM MINIMAL ST DEPRESSION Electronically Signed On 09-17-2016 16:34:31 EDT by Ambika Espitia
[2016-09-17] MEDS ORDERED: *HR* Warfarin 5 MG TABLET PO ONE (18:00)
[2016-09-17] MEDS ORDERED: Warfarin perPT PO PRN (18:00)
[2016-09-17] MEDS ORDERED: Ondansetron 4 MG/2 ML VIAL IVP PRN (18:47)
[2016-09-17] MEDS ORDERED: *HR* Promethazine 25 MG/ML VIAL IM ONE (20:44)
[2016-09-17] MEDS ORDERED: *HR* Promethazine 25 MG/ML VIAL IVP ONE (21:00)
[2016-09-17] MEDS ORDERED: Gabapentin 300 MG CAPSULE PO SCH (21:00)
[2016-09-17] MEDS ORDERED: rOPINIRole 1 MG TABLET PO SCH (21:00)
[2016-09-18 04:03] LABS: Nucleated Red Blood Cells 0.3 /100 WBC (0)
[2016-09-18 04:04] LABS: Basophils # 0.1 K/mcL (0.0-0.2); Basophils % 0.7 %; Eosinophils # 0.1 K/mcL (0.0-0.6); Eosinophils % 1.5 %; Hematocrit 29.3 % (35.3-44.9); Hemoglobin 8.4 g/dL (11.5-15.4); Immature Granulocytes % 0.3 % (0-4); Lymphocytes % 13.9 %; Mean Corpuscular HGB Conc 28.7 g/dL (31.6-35.5); Mean Corpuscular Hemoglobin 19.6 pg (28.0-33.3); Mean Corpuscular Volume 68.5 fL (83.0-100.0); Mean Platelet Volume 10.2 fL (9.4-12.4); Monocytes # 0.6 K/mcL (0.0-1.3); Monocytes % 8.7 %; Platelet Count 179 K/mcL (140-400); Red Blood Count 4.28 M/mcL (3.82-4.97); Red Cell Distribution Width 17.1 % (11.5-14.5); Segmented Neutrophils % 74.9 %
[2016-09-18 04:06] LABS: INR 2.1; Prothrombin Time 22.8 Seconds (9.4-12.1)
[2016-09-18 04:10] LABS: Neutrophils # 5.3 K/mcL (1.6-8.9)
[2016-09-18 04:23] LABS: Calcium 8.8 mg/dL (8.6-10.8); Potassium 3.5 mEq/L (3.5-4.5)
[2016-09-18 04:26] LABS: Anisocytosis 1+ (Not Present); Hypochromasia Present (Not Present); Microcytosis Present (Not Present); Polychromasia 1+ (Not Present)
[2016-09-18 04:27] LABS: Large Platelets Present (Not Present); Platelet Estimate Normal (Normal)
[2016-09-18 10:38] VITALS: BP 92/55
[2016-09-18] MEDS ORDERED: *HR* Warfarin 10 MG TABLET PO ONE (12:24)
[2016-09-18] MEDS: Diltiazem CD (24hr) 180 MG CAPSULE PO SCH (12:43)
[2016-09-18] MEDS: Furosemide 40 MG/4 ML VIAL IVP SCH ×2 (12:43→16:35)
[2016-09-18] MEDS: Aspirin Enteric Coated 81 MG Tablet PO SCH (12:43)
[2016-09-18] MEDS: Isosorbide MONOnitrate (24 HR) 30 MG TAB.ER.24H PO SCH (12:44)
--- NOTE | 2016-09-18 14:59 | Discharge Summary ---
Date of Encounter: 09/18/16 Time of Encounter: 10:05 - Discharge Diagnosis (1) Diastolic CHF due to valvular disease Priority: Primary Status: Acute Comments: Patient's ejection fraction by prior echocardiogram of 60%, her BMP was 479 on arrival. She reports a 20 pound weight gain in approximately one month. She said that she has had increasing shortness of breath and peripheral edema. Dyspnea on exertion and has been unable to button her pants due to weight gain and edema. She was treated with IV Lasix. She has lost 1.53 kg since she has been here and peripheral edema is not entirely resolved. Patient was also on strict I's and O's. Her lungs are clear there are no rhonchi or rales or wheezes heard anteriorly or posteriorly. Patient states that she feels as if she is back to baseline and is ready to go home. (2) Anemia Priority: Secondary Status: Acute Comments: Chronic anemia. Patient states that she was never told what kind of anemia she had but she was getting B12 injections. Currently her B12 and folate levels are within normal limits. Hemoglobin is 8.4 today. She says hemoglobin of 9- 10 is normal. Patient reports chronic fatigue for years. Hemoglobin has been low as well as hematocrit. MCV and MCH were both decreased. On the peripheral smear cells were microcytic and hypochromic. Iron was low as well as percent saturation. I started her on ferrous sulfate twice daily and Colace. She will need to follow-up with her primary care physician for continued evaluation. Prior to discharge I sent stool for occult blood. It was positive. I spoke with Dr. Ivan by phone who states that patient can follow up outpatient. She has not had any transfusions. The patient states that she feels fine and is ready to go home. Her abdomen is not tender, with adequate bowel sounds. She denies cramping or diarrhea. I spoke with patient who will follow up with primary care and surgery. Qualifiers: Anemia type: iron deficiency Iron deficiency anemia type: unspecified iron deficiency Qualified Code(s): D50.9 - Iron deficiency anemia, unspecified (3) Atrial fibrillation Priority: Secondary Status: Chronic Comments: Chronic. Rate controlled with a beta reyes and patient is anticoagulated with Coumadin. INR is therapeutic at 2.1. Qualifiers: Atrial fibrillation type: paroxysmal Qualified Code(s): I48.0 - Paroxysmal atrial fibrillation (4) Diabetes Priority: Secondary Status: Chronic Comments: A1c is 6.6. Patient will continue her normal medications and Accu-Cheks when she returned home. Qualifiers: Diabetes mellitus type: type 2 Diabetes mellitus complication status: with unspecified complications Diabetes mellitus nursing home insulin use: without terminal gauger use Qualified Code(s): E11.8 - Type 2 diabetes mellitus with unspecified complications (5) Heart murmur on physical examination Priority: Secondary Status: Chronic (6) CAD (coronary artery disease) Priority: Secondary Status: Chronic Comments: Tonic. She denies chest pain. Continue aspirin, beta reyes, and statin Qualifiers: Coronary Disease-Associated Artery/Lesion type: unspecified vessel or lesion type [place] vs. transplanted heart: [place] heart Associated angina: angina presence unspecified Qualified Code(s): I25.10 - Atherosclerotic heart disease of [place] coronary artery without angina pectoris (7) VHD (valvular heart disease) Priority: Secondary Status: Chronic Comments: Patient is anticoagulated on Coumadin. (8) DVT prophylaxis Priority: Secondary Status: Acute - Discharge Medications Prescriptions: Docusate [Colace] 100 mg PO BID #60 capsule Ferrous Sulfate 325 mg PO BIDWM #60 tablet Home Medications: Alprazolam [Xanax] 1 mg PO TID 11/29/14 [History] Bupropion HCl [Wellbutrin] 75 mg PO BID 11/29/14 [History] Pravastatin Sodium [Pravachol] 40 mg PO HS 11/29/14 [History] Benzonatate [Tessalon] 100 mg PO TID PRN 11/17/15 [History] Furosemide [Lasix] 40 mg PO BID 11/17/15 [History] Multivitamin [Multi-Day Vitamins] 1 tab PO DAILY 11/17/15 [History] Ondansetron [Zofran] 8 mg PO Q6H PRN 11/17/15 [History] Potassium Chloride [K-Tab ER] 10 meq PO BID 11/17/15 [History] Sennosides [Senna] 8.6 mg PO HS 11/17/15 [History] Gabapentin [Neurontin] 300 mg PO HS 07/19/16 [History] Isosorbide MONOnitrate (24 HR) [Imdur] 15 mg PO DAILY 07/19/16 [History] Levothyroxine [Synthroid] 75 mcg PO 0630 07/19/16 [History] OxyCODONE Immed Rel [Roxicodone 5 MG] 10 mg PO Q6HR PRN 07/19/16 [History] Warfarin [Coumadin] 7.5 mg PO SUTUWETHFRSA 07/19/16 [History] rOPINIRole [Requip] 1 mg PO HS 07/19/16 [History] Aspirin Enteric Coated [Aspirin EC] 81 mg PO DAILY tablet. 07/22/16 [Rx] Warfarin [Coumadin] 10 mg PO MO 08/24/16 [History] Diltiazem CD (24hr) [Cardizem CD] 180 mg PO DAILY #30 cap.er.24h 08/26/16 [Rx] Metoprolol [Lopressor] 12.5 mg PO BID #30 tablet 08/26/16 [Rx] Nystatin [Nystatin Suspension] 200,000 unit BC QID 09/16/16 [History] Docusate [Colace] 100 mg PO BID #60 capsule 09/18/16 [Rx] Ferrous Sulfate 325 mg PO BIDWM #60 tablet 09/18/16 [Rx] Allergies/Adverse Reactions: Allergies ciprofloxacin [From Cipro] Allergy (Verified 08/24/16 19:08) Hives acetaminophen [From Percocet] Adverse Reaction (Verified 08/24/16 19:08) Gastrointestinal Upset Date of admission: 09/16/16 22:41 Primary care physician: Geetha Maharaj CNP Discharging clinician: Shoshana Heaton Anticipated date of discharge: 09/18/16 - Patient Status Disposition: Home, Self-Care Condition: Good Functional capacity at discharge: independent ambulation Overall status at discharge: patient is back to baseline - Discharge Instructions Follow Up With: Geetha Maharaj CNP [Primary Care Provider] - 09/24/16 1:00 pm Additional Instructions: Continue taking your Iron supplement twice daily. Try to take it with a source of vitamin C to help with absorption. Follow up with your primary care provider this coming week for a follow up appointment. You will need to have labs drawn to reevaluate your anemia. Return to the ER as needed for any other problems or concerns or if you begin having swelling again. - Diet and Activity Activity: increase activity as tolerated Diet: advance to your usual diet, low salt diet Hospital course: Ms. Monte is a 70 year old female - Time Spent with Patient Total time spent providing and/or coordinating discharge services: - Constitutional Vitals: Temp Pulse Resp BP Pulse Ox 97.9 F 64 16 92/55 94 09/18/16 10:36 09/18/16 10:36 09/18/16 10:36 09/18/16 10:36 09/18/16 10:36 General appearance: Present: cooperative, A&O X 3, pleasant, no acute distress, answers questions appropriately - Head Head exam: Present: normal inspection - Neck Neck exam general surgery: Present: normal inspection. Absent: lymphadenopathy , tenderness - Respiratory Respiratory exam: Present: decreased breath sounds, CTAB. Absent: chest wall tenderness, rales, respiratory distress, rhonchi, stridor, wheezes - Cardiovascular Cardiovascular exam: Present: RRR, +S1, +S2. Absent: bradycardia, diastolic murmur, systolic murmur, tachycardia - Expanded Cardiovascular Exam Peripheral pulses: 1+: Dorsalis Pedis (L) PM, Dorsalis Pedis (R) PM - GI/Abdominal GI/Abdominal exam: Present: normal bowel sounds, soft. Absent: distended, firm , hepatomegaly, tenderness - Extremities Exam Extremities exam: Present: normal inspection, warm, radial pulses palpable and symetrical. Absent: pedal edema, tenderness - Neurological Exam Neurological exam: Present: alert, oriented X3, no focal deficits, strengths equal and symetr throughout. Absent: facial droop, speech deficit - Skin Skin exam: Present: dry, intact, normal color, warm. Absent: diaphoretic, erythema
[2016-09-18 15:16] LABS: Bilirubin,Urine Negative (Negative); Blood,Urine Negative (Negative); Clarity,Urine Clear (Clear); Color,Urine Yellow (Yellow); Glucose,Urine (UA) Normal (Normal); Ketones,Urine Negative (Negative); Leukocyte Esterase,Urine Trace (Negative); Nitrite,Urine Negative (Negative); PH,Urine 6.5 pH Units (5.0-8.0); Protein,Urine Negative (Neg-Trace); Specific Gravity,Urine 1.011 (1.010-1.025)
[2016-09-18 15:17] LABS: Bacteria,Urine None Seen per hpf (None-Few); Hyaline Casts,Urine None Seen per lpf (None-Few); RBC,Urine 0-3 per hpf (0-3); Squamous Epithelial Cell,Urine Few per lpf (None-Few); WBC,Urine 0-3 per hpf (0-3)
--- NOTE | 2016-09-21 17:10 | Electrocardiograph Report ---
[address] [place], [place] [address] Test Date: 2016-09-18 Pat Name: Abbey Monte Department: 113 Room: 3B23 Gender: F Slope Tender: : 1945 Requested By: Shoshana Heaton Order Number: [id number] Reading MD: Slim Espitia Measurements Intervals [place] Rate: 94 P: 69 RI: 164 QRS: 70 QRSD: 107 T: 93 QT: 397 QTc: 449 Interpretive Statements SINUS RHYTHM LOW QRS VOLTAGE IN EXTREMITY LEADS Electronically Signed On 09-21-2016 17:09:04 EDT by Slim Espitia
== END 2016-09-18 17:00 | disposition home or self-care (01) | DRG 306 ==
LOC: 3BNU 17:23 → EMEROO 17:23 → 3BNU 20:32
PROVIDERS: ADMIT Registered Nurse; ATTEND Registered Nurse

== ENCOUNTER 2016-10-07 12:29 | Inpatient (IN) ==
--- NOTE | 2016-10-07 12:48 | Emergency Department Note ---
Disposition Clinical Impression: Congestive heart failure Qualifiers: Congestive heart failure type: unspecified congestive heart failure type Congestive heart failure chronicity: unspecified congestive heart failure chronicity Qualified Code(s): I50.9 - Heart failure, unspecified Disposition: Admitted As Inpatient Referrals: NO,PCP [Non-Partnered Physician] - Forms: ED Satisfaction Letter SOB HPI - General Chief Complaint: ED Shortness of Breath/Dyspnea Stated Complaint: "In CHF" Source: patient Limitations: no limitations Nursing Notes Reviewed: Yes Vital Signs Reviewed: Yes - History of Present Illness Pt Subjective Complaint: shortness of breath Onset (ago): day(s) (7) Severity: moderate Consistency/Duration: intermittent Improves with: oxygen, rest Worsens with: exertion Known history of: congestive heart failure Associated symptoms: Reports: other (weight gain and LE edema). Denies: chest pain - Related Data Home Medications Medication Instructions Recorded Confirmed Alprazolam [Xanax] 1 mg PO TID 11/29/14 09/16/16 Bupropion HCl [Wellbutrin] 75 mg PO BID 11/29/14 09/16/16 Pravastatin Sodium [Pravachol] 40 mg PO HS 11/29/14 09/16/16 Benzonatate [Tessalon] 100 mg PO TID PRN 11/17/15 09/16/16 Furosemide [Lasix] 40 mg PO BID 11/17/15 09/16/16 Multivitamin [Multi-Day Vitamins] 1 tab PO DAILY 11/17/15 09/16/16 Ondansetron [Zofran] 8 mg PO Q6H PRN 11/17/15 09/16/16 Potassium Chloride [K-Tab ER] 10 meq PO BID 11/17/15 09/16/16 Sennosides [Senna] 8.6 mg PO HS 11/17/15 09/16/16 Gabapentin [Neurontin] 300 mg PO HS 07/19/16 09/16/16 Isosorbide MONOnitrate (24 HR) 15 mg PO DAILY 07/19/16 09/16/16 [Imdur] Levothyroxine [Synthroid] 75 mcg PO 0630 07/19/16 09/16/16 OxyCODONE Immed Rel [Roxicodone 5 10 mg PO Q6HR PRN 03/27/17 05/25/17 MG] Warfarin [Coumadin] 7.5 mg PO SUTUWETHFRSA 07/19/16 09/16/16 rOPINIRole [Requip] 1 mg PO HS 07/19/16 09/16/16 Warfarin [Coumadin] 10 mg PO MO 08/24/16 09/16/16 Nystatin [Nystatin Suspension] 200,000 unit BC QID 09/16/16 09/16/16 Previous Rx's Medication Instructions Recorded Aspirin Enteric Coated [Aspirin EC] 81 mg PO DAILY tablet. 07/22/16 Diltiazem CD (24hr) [Cardizem CD] 180 mg PO DAILY #30 cap.er.24h 08/26/16 Metoprolol [Lopressor] 12.5 mg PO BID #30 tablet 08/26/16 Docusate [Colace] 100 mg PO BID #60 capsule 09/18/16 Ferrous Sulfate 325 mg PO BIDWM #60 tablet 09/18/16 Allergies Allergy/AdvReac Type Severity Reaction Status Date / Time ciprofloxacin [From Cipro] Allergy Hives Verified 08/24/16 19:08 acetaminophen [From Percocet] AdvReac Gastrointestinal Verified 08/24/16 19:08 Upset All systems ED: reviewed and negative except as stated. Constitutional: Denies: fever, chills, weakness Respiratory: Reports: dyspnea Gastrointestinal: Denies: abdominal pain Past Medical History - Past Medical History Source: patient, old records reviewed, nursing notes reviewed Medical history: Reports: atrial fibrillation, cancer, cardiomyopathy, CHF, COPD , coronary artery disease, fibromyalgia, GI bleed, hyperlipidemia, malignancy, peripheral artery disease, thyroid disease, valvular heart disease Surgical history: Reports: angioplasty/stent, breast surgery, cancer surgery, carotid endarterectomy, cataract, cholecystectomy, colectomy, coronary bypass ( CABG), heart valve replacement, hysterectomy, pacemaker/AICD, other Psychiatric history: Reports: anxiety [employer] history: Reports: no [employer] history - Social History Smoking Status: Former smoker Smokeless Tobacco Status: No Alcohol use: Reports: none Drug use: Reports: none Physical Exam - General Limitations: no limitations General appearance: alert, in no apparent distress - Head Head exam: atraumatic, normocephalic, normal inspection - Eye Eye exam: Present: normal appearance, PERRL, EOMI - Expanded Eye Exam Pupils: Left: reactive - ENT ENT exam: normal exam, normal oropharynx, mucous membranes moist - Expanded ENT Exam External ear exam: Present: normal external inspection Mouth exam: Present: normal external inspection Teeth exam: Present: normal inspection Throat exam: Present: normal inspection - Neck Neck exam: Present: normal inspection, full ROM, trachea midline - Chest Chest inspection: Present: normal inspection, symmetric chest wall rise - Respiratory Respiratory exam: Present: other (bibasilary rales) - Cardiovascular Cardiovascular exam: Present: regular rate, normal rhythm, normal heart sounds - Abdominal Exam Abdominal exam: Present: soft, Non-Tender. Absent: tenderness, distention, guarding, rebound, rigidity - Extremities Exam Extremities exam: Present: normal inspection, full ROM. Absent: tenderness, pedal edema - Expanded Upper Extremity Exam Shoulder exam: Present: normal inspection, full ROM Arm exam: Present: normal inspection, full ROM Elbow exam: Present: normal inspection, full ROM Forearm/Wrist exam: Present: normal inspection, full ROM Hand exam: Present: normal inspection, full ROM Vascular exam: Normal: capillary refill, radial pulse - Expanded Lower Extremity Exam Hip/Pelvis exam: Present: normal inspection, full ROM Upper leg exam: Present: normal inspection, full ROM Knee exam: Present: normal inspection, full ROM Lower leg exam: Present: normal inspection, full ROM Ankle exam: Present: other (2+bilat LE edema) Foot/toe exam: Present: normal inspection, full ROM Neurovascular/Tendon exam: Absent: motor deficit, sensory deficit, tendon deficit - Back Exam Back exam: Present: normal inspection, full ROM. Absent: tenderness - Neurological Exam Neurological exam: Present: alert, oriented X3 - Expanded Neurological Exam Patient oriented to: Present: person, place, time Coma Scale Eye Opening: Spontaneous Coma Scale Motor Response: Obeys Commands Coma Scale Verbal Response: Oriented Coma Scale Total: 15 - Psychiatric Psychiatric exam: Present: normal affect, normal mood - Skin Skin exam: Present: warm, dry, intact, normal color Course Vital Signs Temperature 97.7 F 10/07/16 12:36 Pulse Rate 93 10/07/16 12:36 Respiratory Rate 18 10/07/16 12:36 Blood Pressure 113/68 10/07/16 12:36 O2 Sat by Pulse Oximetry 95 10/07/16 12:36 Temperature 97.7 F 10/07/16 12:36 Pulse Rate 94 10/07/16 14:14 Respiratory Rate 18 10/07/16 14:14 Blood Pressure 115/75 10/07/16 14:14 O2 Sat by Pulse Oximetry 92 10/07/16 14:14 Oxygen Delivery Oxygen Delivery Room Air Shortness of Breath/Dyspnea - Differential Diagnosis Likely: acute exacerbation of chronic obstructive airways disease, congestive heart failure, pneumonia, asthma with exacerbation, pneumothorax, arrhythmia - Medical Records Medical records reviewed: Yes I reviewed the patient's medical records. - Lab Data Lab results reviewed: Yes I reviewed the patient's lab results. Result diagrams: 10/07/16 12:58 10/07/16 12:58 Lab Results 10/07/16 10/07/16 10/07/16 Range/Units 12:58 12:58 12:58 WBC 7.1 (4.3-11.1) K/mcL RBC 5.24 H (3.82-4.97) M/mcL Hgb 10.6 L (11.5-15.4) g/dL Hct 37.7 (35.3-44.9) % MCV 71.9 L (83.0-100.0) fL MCH 20.2 L (28.0-33.3) pg MCHC 28.1 L (31.6-35.5) g/dL RDW 22.9 H (11.5-14.5) % Plt Count 296 (140-400) K/mcL MPV 10.2 (9.4-12.4) fL Immature Gran % 0.3 (0-4) % Seg Neutrophils % 75.3 % Lymphocytes % 12.4 % Monocytes % 10.6 % Eosinophils % 0.6 % Basophils % 0.8 % Neutrophils # 5.4 (1.6-8.9) K/mcL Lymphocytes # 0.9 (0.6-4.6) K/mcL Monocytes # 0.8 (0.0-1.3) K/mcL Eosinophils # 0.0 (0.0-0.6) K/mcL Basophils # 0.1 (0.0-0.2) K/mcL Platelet Estimate Normal (Normal) Polychromasia 1+ A (Not Present) Hypochromasia Present A (Not Present) Anisocytosis 2+ A (Not Present) Microcytosis Present A (Not Present) PT 39.9 H (9.4-12.1) Seconds INR 3.6 APTT 42.9 H (26.0-36.0) Seconds Sodium 137 (136-145) mEq/L Potassium 4.1 (3.5-4.5) mEq/L Chloride 102 (98-109) mEq/L Carbon Dioxide 25 (19-29) mEq/L BUN 39 H (7-20) mg/dL Creatinine 1.11 (0.57-1.11) mg/dL Est GFR ( Amer) 59 L (> 60) Est GFR (Non-Af Amer) 49 L (> 60) BUN/Creatinine Ratio 35 H (6-26) Glucose 126 H (70-99) mg/dL Calculated Osmolality 295 (280-300) Lactic Acid (0.5-2.2) mmol/L Calcium 9.8 (8.6-10.8) mg/dL Total Bilirubin 1.6 H (0.2-1.2) mg/dL Direct Bilirubin 1.0 H (0.0-0.5) mg/dL Indirect Bilirubin 0.6 (0.0-1.2) mg/dL AST 32 (5-34) Units/L ALT 17 (0-55) Units/L Alkaline Phosphatase 114 (38-126) Units/L B-Natriuretic Peptide (0-100) pg/mL Serum Total Protein 8.1 (6.0-8.3) g/dL Albumin 3.2 L (3.5-5.0) g/dL Globulin 4.9 H (2.4-3.5) g/dL Albumin/Globulin Ratio 0.7 L (1.1-2.2) 10/07/16 10/07/16 10/07/16 Range/Units 12:58 12:58 13:01 WBC (4.3-11.1) K/mcL RBC (3.82-4.97) M/mcL Hgb (11.5-15.4) g/dL Hct (35.3-44.9) % MCV (83.0-100.0) fL MCH (28.0-33.3) pg MCHC (31.6-35.5) g/dL RDW (11.5-14.5) % Plt Count (140-400) K/mcL MPV (9.4-12.4) fL Immature Gran % (0-4) % Seg Neutrophils % % Lymphocytes % % Monocytes % % Eosinophils % % Basophils % % Neutrophils # (1.6-8.9) K/mcL Lymphocytes # (0.6-4.6) K/mcL Monocytes # (0.0-1.3) K/mcL Eosinophils # (0.0-0.6) K/mcL Basophils # (0.0-0.2) K/mcL Platelet Estimate (Normal) Polychromasia (Not Present) Hypochromasia (Not Present) Anisocytosis (Not Present) Microcytosis (Not Present) PT (9.4-12.1) Seconds INR APTT (26.0-36.0) Seconds Sodium (136-145) mEq/L Potassium (3.5-4.5) mEq/L Chloride (98-109) mEq/L Carbon Dioxide (19-29) mEq/L BUN (7-20) mg/dL Creatinine (0.57-1.11) mg/dL Est GFR ( Amer) (> 60) Est GFR (Non-Af Amer) (> 60) BUN/Creatinine Ratio (6-26) Glucose (70-99) mg/dL Calculated Osmolality (280-300) Lactic Acid 1.4 1.3 (0.5-2.2) mmol/L Calcium (8.6-10.8) mg/dL Total Bilirubin (0.2-1.2) mg/dL Direct Bilirubin (0.0-0.5) mg/dL Indirect Bilirubin (0.0-1.2) mg/dL AST (5-34) Units/L ALT (0-55) Units/L Alkaline Phosphatase (38-126) Units/L B-Natriuretic Peptide 550 H (0-100) pg/mL Serum Total Protein (6.0-8.3) g/dL Albumin (3.5-5.0) g/dL Globulin (2.4-3.5) g/dL Albumin/Globulin Ratio (1.1-2.2) - Radiology Data Radiology results reviewed: Yes I reviewed the patient's radiology results.
[2016-10-07 13:26] LABS: INR 3.6; Prothrombin Time 39.9 Seconds (9.4-12.1)
[2016-10-07 13:28] LABS: Activated Partial Thrombo Time 42.9 Seconds (26.0-36.0)
[2016-10-07 13:33] LABS: Albumin 3.2 g/dL (3.5-5.0); Albumin/Globulin Ratio 0.7 (1.1-2.2); Bilirubin,Indirect 0.6 mg/dL (0.0-1.2); Bilirubin,Total 1.6 mg/dL (0.2-1.2); Calcium 9.8 mg/dL (8.6-10.8); Globulin 4.9 g/dL (2.4-3.5); Potassium 4.1 mEq/L (3.5-4.5); Total Protein 8.1 g/dL (6.0-8.3)
[2016-10-07 13:45] LABS: Eosinophils % 0.6 %; Immature Granulocytes % 0.3 % (0-4); Mean Corpuscular Hemoglobin 20.2 pg (28.0-33.3)
[2016-10-07 13:47] LABS: Basophils # 0.1 K/mcL (0.0-0.2); Basophils % 0.8 %; Hematocrit 37.7 % (35.3-44.9); Hemoglobin 10.6 g/dL (11.5-15.4); Lymphocytes # 0.9 K/mcL (0.6-4.6); Lymphocytes % 12.4 %; Mean Corpuscular HGB Conc 28.1 g/dL (31.6-35.5); Mean Corpuscular Volume 71.9 fL (83.0-100.0); Mean Platelet Volume 10.2 fL (9.4-12.4); Monocytes # 0.8 K/mcL (0.0-1.3); Monocytes % 10.6 %; Platelet Count 296 K/mcL (140-400); Red Blood Count 5.24 M/mcL (3.82-4.97); Red Cell Distribution Width 22.9 % (11.5-14.5); Segmented Neutrophils % 75.3 %
[2016-10-07 13:52] LABS: Neutrophils # 5.4 K/mcL (1.6-8.9)
[2016-10-07] MEDS ORDERED: Furosemide 40 MG/4 ML VIAL IVP ONE (14:01)
[2016-10-07 14:21] LABS: Anisocytosis 2+ (Not Present); Hypochromasia Present (Not Present); Microcytosis Present (Not Present); Polychromasia 1+ (Not Present)
[2016-10-07 14:22] LABS: Platelet Estimate Normal (Normal)
--- NOTE | 2016-10-07 16:50 | Internal Med History&Physical ---
Date of Encounter: 10/07/16 Time of Encounter: 16:47 Assessment and Plan (1) Acute on chronic diastolic heart failure Current visit: Yes Status: Acute Echocardiogram from July 2016 in our records reveals EF of 60%. Indeterminate diastolic dysfunction. She has a history of CHF and appears to be grossly fluid overloaded on exam. We will treat her with Lasix 40 mg IV twice a day. Fluid restriction. Strict I 's and O's. Daily weights. Sodium restricted diet. Heart rate control. Trend troponin to rule out ACS. (2) Chronic atrial fibrillation Current visit: Yes Status: Acute Rate control with diltiazem and metoprolol. Continue anticoagulation with Coumadin. She is currently still supratherapeutic and therefore I will hold warfarin tonight. (3) Acute and chronic respiratory failure with hypoxia Current visit: Yes Status: Acute Oxygen by nasal cannula to maintain saturation above 92%. Assess home oxygen needs prior to discharge when the patient is euvolemic. (4) DVT prophylaxis Current visit: No Status: Acute She is adequately anticoagulated with warfarin and does not require any further measures. (5) Anticoagulated on Coumadin Current visit: No Status: Chronic Daily INR. Pharmacy to manage warfarin dosing. We will monitor INR. (6) Microcytic anemia Current visit: Yes Status: Acute Her hemoglobin today is at 10 which is likely her new baseline, has been stable for the last 6 months, however her microcytosis and elevated RDW suggest iron deficiency anemia. I will order iron studies and ferritin levels. (7) Physical deconditioning Current visit: Yes Status: Acute PT OT evaluation. Internal Medicine - H&P: HPI Chief complaint: Shortness of breath Admitted From: Emergency Dept Plans for Post Hospital Care: Home History of present illness: Ms. 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 Patient reports that she had been more dyspneic over the last 1 week, she is severely short of breath with minimal exertion, improves with rest, she has associated smothering sensation but no chest pain cough fever or chills. She currently has home oxygen at night only and she states that on room air sometimes her oxygen drops down to 80s at rest and even high 70s after she ambulates. She reports lower extremity swelling going up into the mid thighs and a 30 pound weight gain over the last 1 month. She saw her primary care physician on Tuesday who increased her Lasix dosing. A 10 point review of systems was negative except as above. Family history was reviewed and found to be noncontributory to this presentation. Past Med Surg Social Fam HX - Past Medical History Medical history: atrial fibrillation, cancer, cardiomyopathy, CHF, COPD, coronary artery disease, fibromyalgia, GI bleed, hyperlipidemia, malignancy, peripheral artery disease, thyroid disease, valvular heart disease Psychiatric history: anxiety - Past Surgical History Surgical History: angioplasty/stent, breast surgery, cancer surgery, carotid endarterectomy, cataract, cholecystectomy, colectomy, coronary bypass (CABG), heart valve replacement, hysterectomy, pacemaker/AICD, other - Social History Smoking Status: Former smoker Smokeless Tobacco Status: No Alcohol use: none Drug use: none - Family History Mother Adopted: No Family Member Ethnicity: Unknown Living Status: Hx Family Cardiac Disorders: Yes ([place]) Hx Family Cancer: Yes Hx Family Endocrine Disorder: Yes (DIABETES MELLITUS.) Father Living Status: Hx Family Cardiac Disorders: Yes Hx Family Cancer: Yes Hx Family Endocrine Disorder: Yes Internal Medicine - H&P: Meds Alprazolam [Xanax] 1 mg PO TID 11/29/14 [History] Bupropion HCl [Wellbutrin] 75 mg PO BID 11/29/14 [History] Pravastatin Sodium [Pravachol] 40 mg PO HS 11/29/14 [History] Benzonatate [Tessalon] 100 mg PO TID PRN 11/17/15 [History] Furosemide [Lasix] 40 mg PO BID 11/17/15 [History] Multivitamin [Multi-Day Vitamins] 1 tab PO DAILY 11/17/15 [History] Ondansetron [Zofran] 8 mg PO Q6H PRN 11/17/15 [History] Potassium Chloride [K-Tab ER] 10 meq PO BID 11/17/15 [History] Sennosides [Senna] 8.6 mg PO HS 11/17/15 [History] Gabapentin [Neurontin] 300 mg PO HS 07/19/16 [History] Isosorbide MONOnitrate (24 HR) [Imdur] 15 mg PO DAILY 07/19/16 [History] Levothyroxine [Synthroid] 75 mcg PO 0630 07/19/16 [History] OxyCODONE Immed Rel [Roxicodone 5 MG] 10 mg PO Q6HR PRN 07/19/16 [History] Warfarin [Coumadin] 7.5 mg PO SUTUWETHFRSA 07/19/16 [History] rOPINIRole [Requip] 1 mg PO HS 07/19/16 [History] Aspirin Enteric Coated [Aspirin EC] 81 mg PO DAILY tablet. 07/22/16 [Rx] Warfarin [Coumadin] 10 mg PO MO 08/24/16 [History] Diltiazem CD (24hr) [Cardizem CD] 180 mg PO DAILY #30 cap.er.24h 08/26/16 [Rx] Metoprolol [Lopressor] 12.5 mg PO BID #30 tablet 08/26/16 [Rx] Docusate [Colace] 100 mg PO BID #60 capsule 09/18/16 [Rx] Ferrous Sulfate 325 mg PO BIDWM #60 tablet 09/18/16 [Rx] Allergies ciprofloxacin [From Cipro] Allergy (Verified 08/24/16 19:08) Hives acetaminophen [From Percocet] Adverse Reaction (Verified 08/24/16 19:08) Gastrointestinal Upset All Systems PM: A 10-system review of systems was performed and is negative for pertinent findings except as documented above in the HPI. - Constitutional Vitals: Temp Pulse Resp BP Pulse Ox 97.7 F 81 16 113/66 98 10/07/16 12:36 10/07/16 15:35 10/07/16 15:35 10/07/16 15:35 10/07/16 15:35 General appearance: Present: A&O X 3, no acute distress - Eye Eye exam: Present: PERRL, conjuntiva pink, sclera anicteric Pupils: Present: PERRL - Respiratory Respiratory exam: Present: rales (Left basilar crackles). Absent: accessory muscle use, rhonchi, wheezes - Cardiovascular Cardiovascular exam: Present: irregular rhythm, +S1, +S2. Absent: diastolic murmur, gallop, rubs, systolic murmur - GI/Abdominal GI/Abdominal exam: Present: normal bowel sounds, soft, no peritoneal signs. Absent: distended, tenderness - Extremities Exam Extremities exam: Present: pedal edema (2+ lower extremity pitting edema going up into the mid thighs.), warm, radial pulses palpable and symetrical. Absent: calf tenderness, cyanotic - Neurological Exam Neurological exam: Present: CN II-XII intact, oriented X3, no focal deficits. Absent: pronater drift, facial droop, speech deficit - Skin Skin exam: Present: dry, intact Internal Med - H&P Results - Labs CBC & Chem 7: 10/07/16 12:58 10/07/16 12:58 - EKG Data -: EKG Interpreted by Myself (Atrial fibrillation, 100 bpm, no acute ST or T- wave changes, unchanged from)
[2016-10-07] MEDS ORDERED: Ondansetron 4 MG/2 ML VIAL IVP PRN (17:07)
[2016-10-07] MEDS ORDERED: Naloxone 0.4 MG/ML INJ IVP PRN (17:07)
[2016-10-07] MEDS ORDERED: Warfarin perPT PO PRN (18:00)
[2016-10-07] MEDS: Furosemide 40 MG/4 ML VIAL IVP SCH (18:24)
[2016-10-07 19:07] LABS: % Iron Saturation 4 % (15-50); Iron 17 mcg/dL (50-170); Transferrin 303 mg/dL (180-382)
[2016-10-07 19:28] LABS: Ferritin 25 ng/ml (5-204)
[2016-10-07] MEDS: ALPRAZolam 1 MG TABLET PO SCH (20:13)
[2016-10-07] MEDS: Sennosides 8.6 MG TABLET PO SCH (20:13)
[2016-10-07] MEDS: rOPINIRole 1 MG TABLET PO SCH (20:13)
[2016-10-07] MEDS: Gabapentin 300 MG CAPSULE PO SCH (20:13)
[2016-10-07] MEDS: *HR* OxyCODONE Immed Rel 5 MG TABLET PO PRN (21:47)
[2016-10-07] MEDS: Benzonatate 100 MG CAPSULE PO PRN (22:14)
[2016-10-08 00:49] LABS: Basophils # 0.1 K/mcL (0.0-0.2); Basophils % 0.8 %; Eosinophils % 0.6 %; Hematocrit 31.8 % (35.3-44.9); Hemoglobin 9.2 g/dL (11.5-15.4); Immature Granulocytes % 0.5 % (0-4); Lymphocytes # 0.8 K/mcL (0.6-4.6); Lymphocytes % 12.7 %; Mean Corpuscular HGB Conc 28.9 g/dL (31.6-35.5); Mean Corpuscular Hemoglobin 20.6 pg (28.0-33.3); Mean Corpuscular Volume 71.1 fL (83.0-100.0); Mean Platelet Volume 9.5 fL (9.4-12.4); Monocytes # 0.7 K/mcL (0.0-1.3); Monocytes % 10.7 %; Platelet Count 239 K/mcL (140-400); Red Blood Count 4.47 M/mcL (3.82-4.97); Red Cell Distribution Width 22.1 % (11.5-14.5); Segmented Neutrophils % 74.7 %
[2016-10-08 00:50] LABS: Neutrophils # 4.9 K/mcL (1.6-8.9)
[2016-10-08 00:57] LABS: INR 3.6; Prothrombin Time 39.9 Seconds (9.4-12.1)
[2016-10-08 01:02] LABS: Calcium 8.9 mg/dL (8.6-10.8); Magnesium 1.5 mg/dL (1.6-2.6); Potassium 3.7 mEq/L (3.5-4.5)
[2016-10-08 01:25] LABS: Anisocytosis 2+ (Not Present); Hypochromasia Present (Not Present)
[2016-10-08 01:26] LABS: Platelet Estimate Normal (Normal)
[2016-10-08] MEDS ORDERED: Acetaminophen 325 MG TABLET PO PRN (08:11)
[2016-10-08] MEDS: Isosorbide MONOnitrate (24 HR) 30 MG TAB.ER.24H PO SCH (09:15)
[2016-10-08] MEDS: ALPRAZolam 1 MG TABLET PO SCH ×3 (09:16→22:11)
[2016-10-08] MEDS: Diltiazem CD (24hr) 180 MG CAPSULE PO SCH (09:16)
[2016-10-08] MEDS: Furosemide 40 MG/4 ML VIAL IVP SCH ×3 (09:16→17:53)
[2016-10-08] MEDS: Aspirin Enteric Coated 81 MG Tablet PO SCH (09:16)
[2016-10-08] MEDS: *HR* OxyCODONE Immed Rel 5 MG TABLET PO PRN ×2 (09:21→22:11)
--- NOTE | 2016-10-08 11:48 | Cardiology Consult Note ---
Date of Encounter: 10/08/16 Time of Encounter: 11:31 Assessment and Plan (1) CHF exacerbation Current Visit: No Status: Acute CHF with preserved EF. EF 60% on TTE 08/05/16. Recent hospital stay for DCHF. BNP 550. Fluid overload on exam. Agree with IV lasix. Negative 310 ML for 24 hours. Recommend lasix increase to 60 mg IV BID. Low sodium diet education. Strict I&O and daily weights. If kidney function is normal at discharge consider adding aldactone. Qualifiers: Congestive heart failure type: diastolic Qualified Code(s): I50.9 - Heart failure, unspecified (2) Atrial fibrillation Current Visit: No Status: Chronic Currently afib rate controlled. Hr 100 on admission EKG. No significant afib with RVR seen on telemetry review or EKG. Continue cardizem CD and metoprolol as tolerated. Started on sotalol earlier this year. Sotalol stopped d/t side effects. Rate control strategy recommended. Qualifiers: Atrial fibrillation type: paroxysmal Qualified Code(s): I48.0 - Paroxysmal atrial fibrillation (3) CAD (coronary artery disease) Current Visit: No Status: Chronic H/o PCI. Most recently one year ago at the [facility] with valve repair. Continue asa, statin, and bb. No chest pain currently. Previous chest tightness likely secondary to CHF. Qualifiers: Coronary Disease-Associated Artery/Lesion type: unspecified vessel or lesion type [place] vs. transplanted heart: [place] heart Associated angina: angina presence unspecified Qualified Code(s): I25.10 - Atherosclerotic heart disease of [place] coronary artery without angina pectoris (4) VHD (valvular heart disease) Current Visit: No Status: Chronic Multi-valvular disease as described in HPI. TTE 08/05/16; EF 60%, moderate LVH, atypical septal motion. Indeterminate diastolic function. There is a mobile echodensity adherant to portion of the LV consistent with papillary muscle. Severely dilated LA. Bioprosthetic aortic valve is well seated. Bioprosthetic mitral valve severe thickening and calcification along the annulus. No significant mitral valve stenosis ( MG 6mm Hg). Mild pulmonary hypertension. Continue monitoring. Discussion w patient/family: The assessment and plan as outlined above was discussed with the patient and/or family members who expressed understanding and agreement. All questions were answered. Thank you for involving us in the care of your patient. Please call with any questions. History of Present Illness Consult date: 10/08/16 Requesting physician: Polo Crooks Consult reason: CHF Chief complaint: SOB, weight gain, orthopnea. History of present illness: Ms. Monte is a 70 year old female who presented with increasing SOB, weight gain, and orthopnea over that past couple of months. She reported a 20 lb weight gain. Admits to intermittent chest heaviness. Presented in afib with RVR. She has a history of diastolic CHF, multi-valvular disease s/p aortic valve repair, mitral valve repair, and tricuspid valve repair, CAD s/p previous stents, afib on coumadin, COPD and chronic anemia. She was hospitalized one month ago for CHF. She reports she is compliant with low sodium diet but she does eat pork grinds frequently for a snack. Cardiology consulted for CHF and afib with RVR. She is being treated with IV lasix. She is currently rate controlled. Recent cardiac testing; TTE 08/05/16; EF 60%, moderate LVH, atypical septal motion. Indeterminate diastolic function. There is a mobile echodensity adherant to portion of the LV consistent with papillary muscle. Severely dilated LA. Bioprosthetic aortic valve is well seated. Bioprosthetic mitral valve severe thickening and calcification along the annulus. No significant mitral valve stenosis ( MG 6mm Hg). Mild pulmonary hypertension. Past Med Surg Social Fam HX - Past Medical History Attestation: Yes The following information was validated with the patient. Medical history: atrial fibrillation, cancer, cardiomyopathy, CHF, COPD, coronary artery disease, fibromyalgia, GI bleed, hyperlipidemia, malignancy, peripheral artery disease, thyroid disease, valvular heart disease Psychiatric history: anxiety - Past Surgical History Surgical History: angioplasty/stent, breast surgery, cancer surgery, carotid endarterectomy, cataract, cholecystectomy, colectomy, coronary bypass (CABG), heart valve replacement, hysterectomy, pacemaker/AICD, other - Social History Smoking Status: Former smoker Smokeless Tobacco Status: No Alcohol use: none Drug use: none - Family History Mother Adopted: No Family Member Ethnicity: Unknown Living Status: Hx Family Cardiac Disorders: Yes (MS) Hx Family Cancer: Yes Hx Family Endocrine Disorder: Yes (DIABETES MELLITUS.) Father Living Status: Hx Family Cardiac Disorders: Yes Hx Family Cancer: Yes Hx Family Endocrine Disorder: Yes Medications and Allergies Alprazolam [Xanax] 1 mg PO TID 11/29/14 [History] Bupropion HCl [Wellbutrin] 75 mg PO BID 11/29/14 [History] Pravastatin Sodium [Pravachol] 40 mg PO HS 11/29/14 [History] Benzonatate [Tessalon] 100 mg PO TID PRN 11/17/15 [History] Furosemide [Lasix] 40 mg PO BID 11/17/15 [History] Multivitamin [Multi-Day Vitamins] 1 tab PO DAILY 11/17/15 [History] Ondansetron [Zofran] 8 mg PO Q6H PRN 11/17/15 [History] Potassium Chloride [K-Tab ER] 10 meq PO BID 11/17/15 [History] Sennosides [Senna] 8.6 mg PO HS 11/17/15 [History] Gabapentin [Neurontin] 300 mg PO HS 07/19/16 [History] Isosorbide MONOnitrate (24 HR) [Imdur] 15 mg PO DAILY 07/19/16 [History] Levothyroxine [Synthroid] 75 mcg PO 0630 07/19/16 [History] OxyCODONE Immed Rel [Roxicodone 5 MG] 10 mg PO Q6HR PRN 07/19/16 [History] Warfarin [Coumadin] 7.5 mg PO SUTUWETHFRSA 07/19/16 [History] rOPINIRole [Requip] 1 mg PO HS 07/19/16 [History] Aspirin Enteric Coated [Aspirin EC] 81 mg PO DAILY tablet. 07/22/16 [Rx] Warfarin [Coumadin] 10 mg PO MO 08/24/16 [History] Diltiazem CD (24hr) [Cardizem CD] 180 mg PO DAILY #30 cap.er.24h 08/26/16 [Rx] Metoprolol [Lopressor] 12.5 mg PO BID #30 tablet 08/26/16 [Rx] Docusate [Colace] 100 mg PO BID #60 capsule 09/18/16 [Rx] Ferrous Sulfate 325 mg PO BIDWM #60 tablet 09/18/16 [Rx] Allergies ciprofloxacin [From Cipro] Allergy (Verified 08/24/16 19:08) Hives acetaminophen [From Percocet] Adverse Reaction (Verified 08/24/16 19:08) Gastrointestinal Upset All Systems Review: A 10-system review of systems was performed and is negative for pertinent findings except as documented above in the HPI. Physical Examination Vital Signs, Last 4 Hours Temp Pulse Resp BP Pulse Ox 10/08/16 10:38 97.4 F L 88 16 108/60 100 10/08/16 09:35 93/59 10/08/16 08:43 87 14 97/60 97 General: Conversant, No Apparent Distress HEENT: Atraumatic, Normocephaly, Mucus Membranes Moist Neck: No JVD, Normal carotid pulses Cardiac: Other (Irregularly irregular) Lungs: Other (Respirations easy, rales in LLL) Neuro: Alert and responsive, No focal deficits noted Abdomen: Soft, Non-Tender Skin: No rashes noted on visualized skin Musculoskeletal: No Chest Wall Tenderness Extremities: No Clubbing, No Cyanosis, Normal Pulses, Other (2+ BLE edema up to her thighs bilaterally. ) Results 10/08/16 00:35 10/08/16 00:35 Lab Results 10/07/16 10/08/16 10/08/16 17:57 00:35 00:35 WBC 6.5 Hgb 9.2 L Hct 31.8 L Plt Count 239 INR Sodium Potassium Chloride Carbon Dioxide BUN Creatinine Glucose Calcium Magnesium Troponin I 0.03 0.04 H* 10/08/16 10/08/16 00:35 00:35 WBC Hgb Hct Plt Count INR 3.6 Sodium 138 Potassium 3.7 Chloride 101 Carbon Dioxide 29 BUN 38 H Creatinine 1.19 H Glucose 147 H Calcium 8.9 Magnesium 1.5 L Troponin I - Imaging and Cardiology Echo: report reviewed - EKG Interpretation EKG results cardiology: personally reviewed (AFib HR 100, no ST changes.) Consult Discharge Plan - Plan Referrals: Geetha Maharaj CNP [Primary Care Provider] - 10/13/16 1:00 pm
[2016-10-08] MEDS: Benzonatate 100 MG CAPSULE PO PRN (12:08)
--- NOTE | 2016-10-08 12:33 | Internal Med Progress Note ---
Date of Encounter: 10/08/16 Time of Encounter: 12:32 - Assessment and plan (1) CHF exacerbation Current Visit: Yes Status: Acute Assessment and plan: [place] CHFpEF Extensive cardiac history TTE 08/05/16; EF 60%, moderate LVH, atypical septal motion. Indeterminate diastolic function. There is a mobile echodensity adherant to portion of the LV consistent with papillary muscle. Severely dilated LA. Bioprosthetic aortic valve is well seated. Bioprosthetic mitral valve severe thickening and calcification along the annulus. No significant mitral valve stenosis ( MG 6mm Hg). Mild pulmonary hypertension. 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 Qualified Code(s): E11.8 - Type 2 diabetes mellitus with unspecified complications (3) Hypothyroid Current Visit: Yes Status: Chronic Assessment and plan: Continue synthroid Qualifiers: Hypothyroidism type: unspecified Qualified Code(s): E03.9 - Hypothyroidism , unspecified (4) Atrial fibrillation Current Visit: Yes Status: Chronic Assessment and plan: HR controlled, INR supratherapeutic, adjust coumadin, continue meds Qualifiers: Atrial fibrillation type: paroxysmal Qualified Code(s): I48.0 - Paroxysmal atrial fibrillation (5) CAD (coronary artery disease) Current Visit: Yes Status: Chronic Assessment and plan: Chronic, stable, continue home meds Qualifiers: Coronary Disease-Associated Artery/Lesion type: unspecified vessel or lesion type [place] vs. transplanted heart: [place] heart Associated angina: angina presence unspecified Qualified Code(s): I25.10 - Atherosclerotic heart disease of [place] coronary artery without angina pectoris (6) COPD (chronic obstructive pulmonary disease) Current Visit: Yes Status: Chronic Assessment and plan: Not in exacerbation at this time Continue to monitor Qualifiers: COPD type: unspecified COPD Qualified Code(s): J44.9 - Chronic obstructive pulmonary disease, unspecified (7) Physical deconditioning Current Visit: Yes Status: Acute Assessment and plan: Per PT/OT, no further needs at home - Subjective Interval history: Seen and evaluated at bedside Sitting up in chair, complained of fatigue she us being managed for acute on chronic CHF, and acute on chronic hypoxic respiratory failure She has a PMH of CHFpEF, s/p MVR, AVR, Afib, PCM/AICD on Coumadin - Constitutional Vitals: Temp Pulse Resp BP Pulse Ox 97.4 F L 88 16 108/60 100 10/08/16 10:38 10/08/16 10:38 10/08/16 10:38 10/08/16 10:38 10/08/16 10:38 General appearance: Present: A&O X 3, pleasant, no acute distress - Head Head exam: Present: atraumatic, normocephalic - Eye Eye exam: Present: PERRL, conjuntiva pink, sclera anicteric Pupils: Present: PERRL - Neck Neck exam general surgery: Present: supple, trachea midline. Absent: lymphadenopathy - Respiratory Respiratory exam: Present: CTAB. Absent: accessory muscle use, rales, rhonchi, wheezes - Cardiovascular Cardiovascular exam: Present: irregular rhythm, +S1, +S2. Absent: diastolic murmur, gallop, rubs, systolic murmur - GI/Abdominal GI/Abdominal exam: Present: normal bowel sounds, soft, no peritoneal signs. Absent: distended, tenderness - Extremities Exam Extremities exam: Present: pedal edema (1+ bilaterally), warm, radial pulses palpable and symetrical. Absent: calf tenderness, cyanotic - Neurological Exam Neurological exam: Present: alert, CN II-XII intact, oriented X3, no focal deficits. Absent: pronater drift, facial droop, speech deficit - Skin Skin exam: Present: dry Internal Medicine: Result - Labs CBC & Chem 7: 10/08/16 00:35 10/08/16 00:35 Labs: Short CBC 10/08/16 Range/Units 00:35 WBC 6.5 (4.3-11.1) K/mcL Hgb 9.2 L (11.5-15.4) g/dL Hct 31.8 L (35.3-44.9) % Plt Count 239 (140-400) K/mcL Neutrophils # 4.9 (1.6-8.9) K/mcL BMP 10/08/16 00:35 Sodium 138 Potassium 3.7 Chloride 101 Carbon Dioxide 29 BUN 38 H Creatinine 1.19 H Glucose 147 H Calcium 8.9 Cardiac Enzymes 10/07/16 10/08/16 Range/Units 17:57 00:35 Troponin I 0.03 0.04 H* (0-0.03) ng/mL - ABG Interpretation ABG results: PT/INR, D-dimer PT 39.9 Seconds (9.4-12.1) H 10/08/16 00:35 Consult Discharge Plan - Plan Referrals: Geetha Maharaj, VENU [Primary Care Provider] - 10/13/16 1:00 pm
[2016-10-08] MEDS ORDERED: Furosemide 20 MG/2 ML VIAL IVP ONE (12:39)
[2016-10-08] MEDS ORDERED: Magnesium Sulfate 2 GM in D5% in Water 100 ML IVPB ONE (13:18)
[2016-10-08] MEDS ORDERED: *HR* Dextrose 50 % in Water (Syg) 50 ML SYRINGE IVP PRN (13:19)
[2016-10-08] MEDS ORDERED: D5% in Water 1,000 ML IVC PRN (13:19)
[2016-10-08] MEDS ORDERED: Dextrose Gel 15 GM PO PRN ×2 (13:19)
[2016-10-08] MEDS: Insulin LISPRO 300 UNITS/3 ML VIAL SQ SCH ×2 (17:53→22:12)
[2016-10-08] MEDS ORDERED: *HR* Warfarin 7.5 MG TABLET PO SCH (18:00)
[2016-10-08] MEDS: Gabapentin 300 MG CAPSULE PO SCH (22:11)
[2016-10-08] MEDS: Magnesium Oxide 400 MG TABLET PO SCH (22:11)
[2016-10-08] MEDS: rOPINIRole 1 MG TABLET PO SCH (22:11)
[2016-10-08] MEDS: Sennosides 8.6 MG TABLET PO SCH (22:12)
[2016-10-09] MEDS: Insulin LISPRO 300 UNITS/3 ML VIAL SQ SCH ×4 (07:43→22:12)
[2016-10-09 09:00] LABS: Eosinophils % 1.4 %; Mean Corpuscular Hemoglobin 20.2 pg (28.0-33.3); Mean Platelet Volume 10.2 fL (9.4-12.4)
[2016-10-09 09:01] LABS: Basophils % 0.6 %; Eosinophils # 0.1 K/mcL (0.0-0.6); Hematocrit 32.7 % (35.3-44.9); Immature Granulocytes % 0.5 % (0-4); Lymphocytes # 0.7 K/mcL (0.6-4.6); Lymphocytes % 10.7 %; Mean Corpuscular HGB Conc 27.5 g/dL (31.6-35.5); Mean Corpuscular Volume 73.3 fL (83.0-100.0); Monocytes # 0.6 K/mcL (0.0-1.3); Monocytes % 9.3 %; Platelet Count 235 K/mcL (140-400); Red Blood Count 4.46 M/mcL (3.82-4.97); Red Cell Distribution Width 22.2 % (11.5-14.5); Segmented Neutrophils % 77.5 %
[2016-10-09 09:05] LABS: INR 2.1; Prothrombin Time 23.5 Seconds (9.4-12.1)
--- NOTE | 2016-10-09 09:20 | Internal Med Progress Note ---
Date of Encounter: 10/09/16 Time of Encounter: 09:19 - Assessment and plan (1) CHF exacerbation Current Visit: Yes Status: Acute Assessment and plan: Known CHFpEF Extensive cardiac history TTE 08/05/16; EF 60%, moderate LVH, atypical septal motion. Indeterminate diastolic function. There is a mobile echodensity adherant to portion of the LV consistent with papillary muscle. Severely dilated LA. Bioprosthetic aortic valve is well seated. Bioprosthetic mitral valve severe thickening and calcification along the annulus. No significant mitral valve stenosis ( MG 6mm Hg). Mild pulmonary hypertension. 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 insulin use: without long-term use Qualified Code(s): E11.8 - Type 2 diabetes mellitus with unspecified complications (3) Hypothyroid Current Visit: Yes Status: Chronic Assessment and plan: Continue synthroid Qualifiers: Hypothyroidism type: unspecified Qualified Code(s): E03.9 - Hypothyroidism , unspecified (4) Atrial fibrillation Current Visit: Yes Status: Chronic Assessment and plan: HR controlled, INR 2.1, , continue meds Qualifiers: Atrial fibrillation type: persistent Qualified Code(s): I48.1 - Persistent atrial fibrillation (5) CAD (coronary artery disease) Current Visit: Yes Status: Chronic Assessment and plan: Chronic, stable, continue home meds Qualifiers: Coronary Disease-Associated Artery/Lesion type: unspecified vessel or lesion type [place] vs. transplanted heart: [place] heart Associated angina: angina presence unspecified Qualified Code(s): I25.10 - Atherosclerotic heart disease of [place] coronary artery without angina pectoris (6) COPD (chronic obstructive pulmonary disease) Current Visit: Yes Status: Chronic Assessment and plan: Not in exacerbation at this time Continue to monitor Qualifiers: COPD type: unspecified COPD Qualified Code(s): J44.9 - Chronic obstructive pulmonary disease, unspecified (7) Physical deconditioning Current Visit: Yes Status: Acute Assessment and plan: Per PT/OT, no further needs at home - Subjective Interval history: Seen and evaluated at bedside Sitting up in chair, complained of fatigue she is being managed for acute on chronic CHF, and acute on chronic hypoxic respiratory failure She has a PMH of CHFpEF, s/p MVR, AVR, Afib, PCM/AICD on Coumadin Seen at bedside, no new complains Received only one dose of IV lasix due to IV access yesterday I/O 0 - Constitutional Vitals: Temp Pulse Resp BP Pulse Ox 97.8 F 85 16 114/61 100 10/09/16 07:15 10/09/16 07:15 10/09/16 07:15 10/09/16 07:15 10/09/16 07:15 General appearance: Present: A&O X 3, pleasant, no acute distress - Head Head exam: Present: atraumatic, normocephalic - Neck Neck exam general surgery: Present: supple, trachea midline. Absent: lymphadenopathy - Respiratory Respiratory exam: Present: CTAB. Absent: accessory muscle use, rales, rhonchi, wheezes Additional comments: Scar, PCM in pocket - Cardiovascular Cardiovascular exam: Present: RRR, +S1, +S2. Absent: diastolic murmur, gallop, rubs, systolic murmur - GI/Abdominal GI/Abdominal exam: Present: normal bowel sounds, soft, no peritoneal signs. Absent: distended, tenderness - Extremities Exam Extremities exam: Present: pedal edema (2+ piting pedal edema), warm, radial pulses palpable and symetrical. Absent: calf tenderness, cyanotic - Neurological Exam Neurological exam: Present: alert, CN II-XII intact, oriented X3, no focal deficits. Absent: pronater drift, facial droop, speech deficit - Skin Skin exam: Present: dry, intact Internal Medicine: Result - Labs CBC & Chem 7: 10/09/16 05:30 10/09/16 09:30 Labs: Short CBC 10/09/16 Range/Units 05:30 WBC 6.4 (4.3-11.1) K/mcL Hgb 9.0 L (11.5-15.4) g/dL Hct 32.7 L (35.3-44.9) % Plt Count 235 (140-400) K/mcL Neutrophils # 5.0 (1.6-8.9) K/mcL - ABG Interpretation ABG results: PT/INR, D-dimer PT 23.5 Seconds (9.4-12.1) H 10/09/16 05:30 - VTE Documentation of Mechanical Device: Graduated compression elastic hosiery Consult Discharge Plan - Plan Referrals: Geetha Maharaj CNP [Primary Care Provider] - 10/13/16 1:00 pm
[2016-10-09] MEDS: Aspirin Enteric Coated 81 MG Tablet PO SCH (09:23)
[2016-10-09] MEDS: Furosemide 40 MG/4 ML VIAL IVP SCH ×2 (09:23→17:09)
[2016-10-09] MEDS: Isosorbide MONOnitrate (24 HR) 30 MG TAB.ER.24H PO SCH (09:23)
[2016-10-09] MEDS: Diltiazem CD (24hr) 180 MG CAPSULE PO SCH (09:23)
[2016-10-09] MEDS: Magnesium Oxide 400 MG TABLET PO SCH ×2 (09:23→21:52)
[2016-10-09] MEDS: ALPRAZolam 1 MG TABLET PO SCH ×3 (09:24→21:52)
[2016-10-09 10:21] LABS: BUN/Creatinine Ratio 43 (6-26); Blood Urea Nitrogen 36 mg/dL (7-20); Calcium 9.2 mg/dL (8.6-10.8); Carbon Dioxide 31 mEq/L (19-29); Chloride 99 mEq/L (98-109); Glucose 132 mg/dL (70-99); Osmolality,Calculated 294 (280-300); Potassium 3.6 mEq/L (3.5-4.5); Sodium 137 mEq/L (136-145); eGFR For African Americans > 60 (> 60); eGFR For Non-African Americans > 60 (> 60)
--- NOTE | 2016-10-09 11:05 | Cardiology Progress Note ---
Date of Encounter: 10/09/16 Time of Encounter: 11:03 Assessment and Plan (1) Atrial fibrillation Current Visit: Yes Status: Chronic Currently afib rate controlled. Hr 100 on admission EKG. No significant afib with RVR seen on telemetry review or EKG. Continue cardizem CD and metoprolol as tolerated. Started on sotalol earlier this year. Sotalol stopped d/t side effects. Rate control strategy recommended. Qualifiers: Atrial fibrillation type: persistent Qualified Code(s): I48.1 - Persistent atrial fibrillation (2) Acute on chronic diastolic heart failure Current Visit: Yes Status: Acute Almost back to baseline. Discussion w patient/family: The assessment and plan as outlined above was discussed with the patient and/or family members who expressed understanding and agreement. All questions were answered. Thank you for involving us in the care of your patient. Please call with any questions. Subjective Principal diagnosis: CHF Interval history: Has improved, almost to baseline. Objective Vital Signs, Last 4 Hours Temp Pulse Resp BP Pulse Ox 10/09/16 07:15 97.8 F 85 16 114/61 100 General: Conversant, No Apparent Distress HEENT: Atraumatic, Normocephaly, Mucus Membranes Moist Neck: No JVD, Normal carotid pulses Cardiac: Normal S1 and S2, No Murmur, Other (Irregular) Lungs: Other (Scattered ronchi) Neuro: Alert and responsive, No focal deficits noted Abdomen: Soft, Non-Tender Skin: No rashes noted on visualized skin Extremities: Other (Mild edema) Results 10/09/16 05:30 10/09/16 09:30 Lab Results 10/09/16 10/09/16 10/09/16 05:30 05:30 09:30 WBC 6.4 Hgb 9.0 L Hct 32.7 L Plt Count 235 INR 2.1 Sodium 137 Potassium 3.6 Chloride 99 Carbon Dioxide 31 H BUN 36 H Creatinine 0.83 Glucose 132 H Calcium 9.2 - VTE Documentation of Mechanical Device: Graduated compression elastic hosiery Consult Discharge Plan - Plan Referrals: Geetha Maharaj CNP [Primary Care Provider] - 10/13/16 1:00 pm
--- NOTE | 2016-10-09 12:25 | Electrocardiograph Report ---
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
[2016-10-09] MEDS ORDERED: *HR* Warfarin 7.5 MG TABLET PO ONE (18:00)
[2016-10-09] MEDS: Gabapentin 300 MG CAPSULE PO SCH (21:52)
[2016-10-09] MEDS: rOPINIRole 1 MG TABLET PO SCH (21:52)
[2016-10-09] MEDS: Sennosides 8.6 MG TABLET PO SCH (21:52)
[2016-10-10] MEDS: Benzonatate 100 MG CAPSULE PO PRN ×2 (00:21→20:00)
[2016-10-10] MEDS: *HR* OxyCODONE Immed Rel 5 MG TABLET PO PRN (00:21)
[2016-10-10] MEDS: Methyl Salicylate/Menthol 28 GM TUBE TP PRN (02:15)
[2016-10-10 03:14] LABS: Basophils % 0.8 %; Eosinophils % 1.3 %; Hemoglobin 8.7 g/dL (11.5-15.4); Immature Granulocytes % 0.3 % (0-4)
[2016-10-10 03:15] LABS: Basophils # 0.1 K/mcL (0.0-0.2); Eosinophils # 0.1 K/mcL (0.0-0.6); Hematocrit 30.6 % (35.3-44.9); Lymphocytes # 0.7 K/mcL (0.6-4.6); Lymphocytes % 11.2 %; Mean Corpuscular HGB Conc 28.4 g/dL (31.6-35.5); Mean Corpuscular Hemoglobin 20.3 pg (28.0-33.3); Mean Corpuscular Volume 71.3 fL (83.0-100.0); Monocytes # 0.6 K/mcL (0.0-1.3); Monocytes % 10.1 %; Neutrophils # 4.8 K/mcL (1.6-8.9); Platelet Count 213 K/mcL (140-400); Red Blood Count 4.29 M/mcL (3.82-4.97); Red Cell Distribution Width 21.5 % (11.5-14.5); Segmented Neutrophils % 76.3 %
[2016-10-10 03:19] LABS: INR 1.7; Prothrombin Time 19.1 Seconds (9.4-12.1)
[2016-10-10 03:27] LABS: BUN/Creatinine Ratio 48 (6-26); Blood Urea Nitrogen 46 mg/dL (7-20); Calcium 8.9 mg/dL (8.6-10.8); Carbon Dioxide 32 mEq/L (19-29); Chloride 98 mEq/L (98-109); Glucose 154 mg/dL (70-99); Osmolality,Calculated 301 (280-300); Potassium 3.2 mEq/L (3.5-4.5); Sodium 138 mEq/L (136-145); eGFR For African Americans > 60 (> 60); eGFR For Non-African Americans 58 (> 60)
[2016-10-10 03:36] LABS: Hypochromasia Present (Not Present); Platelet Estimate Normal (Normal)
[2016-10-10 03:37] LABS: Anisocytosis 1+ (Not Present)
[2016-10-10] MEDS: Isosorbide MONOnitrate (24 HR) 30 MG TAB.ER.24H PO SCH (08:15)
[2016-10-10] MEDS: Aspirin Enteric Coated 81 MG Tablet PO SCH (08:15)
[2016-10-10] MEDS: Furosemide 40 MG/4 ML VIAL IVP SCH ×2 (08:15→17:01)
[2016-10-10] MEDS: Diltiazem CD (24hr) 180 MG CAPSULE PO SCH (08:15)
[2016-10-10] MEDS: Magnesium Oxide 400 MG TABLET PO SCH ×2 (08:16→19:56)
[2016-10-10] MEDS: ALPRAZolam 1 MG TABLET PO SCH ×3 (08:19→19:56)
[2016-10-10] MEDS: Insulin LISPRO 300 UNITS/3 ML VIAL SQ SCH ×4 (08:20→21:38)
--- NOTE | 2016-10-10 11:20 | Internal Med Progress Note ---
Date of Encounter: 10/10/16 Time of Encounter: 11:16 - Assessment and plan (1) CHF exacerbation Current Visit: Yes Status: Acute Assessment and plan: Known CHFpEF Extensive cardiac history TTE 08/05/16; EF 60%, moderate LVH, atypical septal motion. Indeterminate diastolic function. There is a mobile echodensity adherant to portion of the LV consistent with papillary muscle. Severely dilated LA. Bioprosthetic aortic valve is well seated. Bioprosthetic mitral valve severe thickening and calcification along the annulus. No significant mitral valve stenosis ( MG 6mm Hg). Mild pulmonary hypertension. Patient continues to complain about fatigue and poor quality of life Continue diuresis, BB, ACEI Cardiology eval noted and appreciated Strict I/O, daily weight, fluid restriction diet Qualifiers: Congestive heart failure type: diastolic Qualified Code(s): I50.33 - Acute on chronic diastolic (congestive) heart failure (2) Diabetes Current Visit: Yes Status: Chronic Assessment and plan: A1C 6.6 FS ACHS Sliding scale insulin Qualifiers: Diabetes mellitus type: type 2 Diabetes mellitus complication status: with unspecified complications Diabetes mellitus coater brake linings insulin use: without group home use Qualified Code(s): E11.8 - Type 2 diabetes mellitus with unspecified complications (3) Hypothyroid Current Visit: Yes Status: Chronic Assessment and plan: Continue synthroid Qualifiers: Hypothyroidism type: unspecified Qualified Code(s): E03.9 - Hypothyroidism , unspecified (4) Atrial fibrillation Current Visit: Yes Status: Chronic Assessment and plan: HR controlled, INR 1.7, adjust coumadin, continue meds Qualifiers: Atrial fibrillation type: persistent Qualified Code(s): I48.1 - Persistent atrial fibrillation (5) CAD (coronary artery disease) Current Visit: Yes Status: Chronic Assessment and plan: Chronic, stable, continue home meds Qualifiers: Coronary Disease-Associated Artery/Lesion type: unspecified vessel or lesion type [place] vs. transplanted heart: [place] heart Associated angina: angina presence unspecified Qualified Code(s): I25.10 - Atherosclerotic heart disease of [place] coronary artery without angina pectoris (6) COPD (chronic obstructive pulmonary disease) Current Visit: Yes Status: Chronic Assessment and plan: Not in exacerbation at this time Continue to monitor Qualifiers: COPD type: unspecified COPD Qualified Code(s): J44.9 - Chronic obstructive pulmonary disease, unspecified (7) Physical deconditioning Current Visit: Yes Status: Acute Assessment and plan: Per PT/OT, no further needs at home - Subjective Interval history: 70 F she is being managed for acute on chronic CHF, and acute on chronic hypoxic respiratory failure She has a PMH of CHFpEF, s/p MVR, AVR, Afib, PCM/AICD on Coumadin Seen at bedside, no new complains I/O -2.6L, weight loss recorded Patient needs to be requalified for home O2 prior to discharge - Constitutional Vitals: Temp Pulse Resp BP Pulse Ox 97.7 F 87 16 116/65 100 10/10/16 11:04 10/10/16 11:04 10/10/16 11:04 10/10/16 11:04 10/10/16 11:04 General appearance: Present: A&O X 3, pleasant, no acute distress - Head Head exam: Present: atraumatic, normocephalic - Eye Eye exam: Present: PERRL, conjuntiva pink, sclera anicteric Pupils: Present: PERRL - Neck Neck exam general surgery: Present: supple, trachea midline. Absent: lymphadenopathy - Respiratory Respiratory exam: Present: CTAB. Absent: accessory muscle use, rales, rhonchi, wheezes - Cardiovascular Cardiovascular exam: Present: irregular rhythm, +S1, +S2, systolic murmur. Absent: diastolic murmur, gallop, rubs - GI/Abdominal GI/Abdominal exam: Present: normal bowel sounds, soft, no peritoneal signs. Absent: distended, tenderness - Extremities Exam Extremities exam: Present: warm, radial pulses palpable and symetrical. Absent : calf tenderness, cyanotic, pedal edema - Neurological Exam Neurological exam: Present: alert, CN II-XII intact, oriented X3, no focal deficits. Absent: pronater drift, facial droop, speech deficit - Skin Skin exam: Present: dry, intact Internal Medicine: Result - Labs CBC & Chem 7: 10/10/16 03:05 10/10/16 03:05 Labs: Short CBC 10/10/16 Range/Units 03:05 WBC 6.3 (4.3-11.1) K/mcL Hgb 8.7 L (11.5-15.4) g/dL Hct 30.6 L (35.3-44.9) % Plt Count 213 (140-400) K/mcL Neutrophils # 4.8 (1.6-8.9) K/mcL BMP 10/10/16 03:05 Sodium 138 Potassium 3.2 L Chloride 98 Carbon Dioxide 32 H BUN 46 H D Creatinine 0.96 Glucose 154 H Calcium 8.9 - ABG Interpretation ABG results: PT/INR, D-dimer PT 19.1 Seconds (9.4-12.1) H 10/10/16 03:05 - VTE Documentation of Mechanical Device: Graduated compression elastic hosiery Consult Discharge Plan - Plan Referrals: Geetha Maharaj [employer] OPERATOR [Primary Care Provider] - 10/13/16 1:00 pm
[2016-10-10] MEDS ORDERED: *HR* Warfarin 7.5 MG TABLET PO ONE (18:00)
[2016-10-10] MEDS: rOPINIRole 1 MG TABLET PO SCH (19:57)
[2016-10-10] MEDS: Sennosides 8.6 MG TABLET PO SCH (19:57)
[2016-10-10] MEDS: Gabapentin 300 MG CAPSULE PO SCH (19:57)
[2016-10-11] MEDS: *HR* OxyCODONE Immed Rel 5 MG TABLET PO PRN (00:25)
[2016-10-11] MEDS: Methyl Salicylate/Menthol 28 GM TUBE TP PRN (00:27)
[2016-10-11 04:14] LABS: Basophils # 0.1 K/mcL (0.0-0.2); Basophils % 0.8 %; Eosinophils # 0.1 K/mcL (0.0-0.6); Eosinophils % 1.5 %; Hemoglobin 9.1 g/dL (11.5-15.4); Immature Granulocytes % 0.8 % (0-4); Lymphocytes # 0.7 K/mcL (0.6-4.6); Lymphocytes % 9.8 %; Mean Corpuscular HGB Conc 27.6 g/dL (31.6-35.5); Mean Corpuscular Volume 72.4 fL (83.0-100.0); Mean Platelet Volume 9.5 fL (9.4-12.4); Monocytes # 0.7 K/mcL (0.0-1.3); Monocytes % 10.6 %; Neutrophils # 5.1 K/mcL (1.6-8.9); Nucleated Red Blood Cells 0.3 /100 WBC (0); Platelet Count 210 K/mcL (140-400); Red Blood Count 4.56 M/mcL (3.82-4.97); Red Cell Distribution Width 21.6 % (11.5-14.5); Segmented Neutrophils % 76.5 %
[2016-10-11 04:18] LABS: INR 1.4; Prothrombin Time 15.6 Seconds (9.4-12.1)
[2016-10-11 04:28] LABS: BUN/Creatinine Ratio 56 (6-26); Blood Urea Nitrogen 49 mg/dL (7-20); Calcium 9.1 mg/dL (8.6-10.8); Carbon Dioxide 33 mEq/L (19-29); Chloride 98 mEq/L (98-109); Glucose 143 mg/dL (70-99); Osmolality,Calculated 303 (280-300); Potassium 3.2 mEq/L (3.5-4.5); Sodium 139 mEq/L (136-145); eGFR For African Americans > 60 (> 60); eGFR For Non-African Americans > 60 (> 60)
[2016-10-11 04:54] LABS: Anisocytosis 2+ (Not Present); Platelet Estimate Normal (Normal)
[2016-10-11] MEDS: Insulin LISPRO 300 UNITS/3 ML VIAL SQ SCH ×4 (08:22→21:42)
[2016-10-11] MEDS: Aspirin Enteric Coated 81 MG Tablet PO SCH (08:23)
[2016-10-11] MEDS: Magnesium Oxide 400 MG TABLET PO SCH ×2 (08:23→20:07)
[2016-10-11] MEDS: ALPRAZolam 1 MG TABLET PO SCH ×3 (08:24→20:08)
[2016-10-11] MEDS: Isosorbide MONOnitrate (24 HR) 30 MG TAB.ER.24H PO SCH (08:24)
[2016-10-11] MEDS: Diltiazem CD (24hr) 180 MG CAPSULE PO SCH (08:24)
--- NOTE | 2016-10-11 13:54 | Internal Med Progress Note ---
Date of Encounter: 10/11/16 Time of Encounter: 13:51 - Assessment and plan (1) CHF exacerbation Current Visit: Yes Status: Acute Assessment and plan: Known CHFpEF Extensive cardiac history TTE 08/05/16; EF 60%, moderate LVH, atypical septal motion. Indeterminate diastolic function. There is a mobile echodensity adherant to portion of the LV consistent with papillary muscle. Severely dilated LA. Bioprosthetic aortic valve is well seated. Bioprosthetic mitral valve severe thickening and calcification along the annulus. No significant mitral valve stenosis ( MG 6mm Hg). Mild pulmonary hypertension. Patient continues to complain about fatigue and poor quality of life Continue diuresis, BB, ACEI Cardiology eval noted and appreciated I/O -2.6 L, unsure if measurement is accurate, patient's weight reading documents some weight loss Renal function is stable, will give an additional 20mg IV push lasix Continue 60mg po bid Home O2 prior to discharge Anticipate discharge later toda Qualifiers: Congestive heart failure type: diastolic Qualified Code(s): I50.33 - Acute on chronic diastolic (congestive) heart failure (2) Diabetes Current Visit: Yes Status: Chronic Assessment and plan: A1C 6.6 FS ACHS Sliding scale insulin Qualifiers: Diabetes mellitus type: type 2 Diabetes mellitus complication status: with unspecified complications Diabetes mellitus termite inspector insulin use: without fpc use Qualified Code(s): E11.8 - Type 2 diabetes mellitus with unspecified complications (3) Hypothyroid Current Visit: Yes Status: Chronic Assessment and plan: Continue synthroid Qualifiers: Hypothyroidism type: unspecified Qualified Code(s): E03.9 - Hypothyroidism , unspecified (4) Atrial fibrillation Current Visit: Yes Status: Chronic Assessment and plan: HR controlled, INR 1.4, adjust coumadin, continue meds, monitor INR Qualifiers: Atrial fibrillation type: persistent Qualified Code(s): I48.1 - Persistent atrial fibrillation (5) CAD (coronary artery disease) Current Visit: Yes Status: Chronic Assessment and plan: Chronic, stable, continue home meds Qualifiers: Coronary Disease-Associated Artery/Lesion type: unspecified vessel or lesion type [place] vs. transplanted heart: [place] heart Associated angina: angina presence unspecified Qualified Code(s): I25.10 - Atherosclerotic heart disease of [place] coronary artery without angina pectoris (6) COPD (chronic obstructive pulmonary disease) Current Visit: Yes Status: Chronic Assessment and plan: Not in exacerbation at this time Continue to monitor Qualifiers: COPD type: unspecified COPD Qualified Code(s): J44.9 - Chronic obstructive pulmonary disease, unspecified (7) Physical deconditioning Current Visit: Yes Status: Acute Assessment and plan: Per PT/OT, no further needs at home (8) Stage II pressure ulcer Current Visit: Yes Status: Chronic Assessment and plan: Present as at admission day 10/07 patient is ambulatory with cane at home PT/OT eval noted same Continue Allevyn dressing Qualifiers: Pressure ulcer location: buttock Laterality: unspecified laterality Qualified Code(s): L89.302 - Pressure ulcer of unspecified buttock, stage 2 - Subjective Interval history: 70 F she is being managed for acute on chronic CHF, and acute on chronic hypoxic respiratory failure She has a PMH of CHFpEF, s/p MVR, AVR, Afib, PCM/AICD on Coumadin Seen at bedside, no new complains I/O -2.6L, weight loss recorded Patient needs to be requalified for home O2 prior to discharge - Constitutional Vitals: Temp Pulse Resp BP Pulse Ox 97.5 F L 91 18 119/70 100 10/11/16 11:07 10/11/16 11:07 10/11/16 11:07 10/11/16 11:07 10/11/16 12:16 General appearance: Present: A&O X 3, pleasant, no acute distress - Head Head exam: Present: atraumatic, normocephalic - Eye Eye exam: Present: PERRL, conjuntiva pink, sclera anicteric Pupils: Present: PERRL - Neck Neck exam general surgery: Present: supple, trachea midline. Absent: lymphadenopathy - Respiratory Respiratory exam: Present: CTAB. Absent: accessory muscle use, rales, rhonchi, wheezes Additional comments: Patient has coarse breath sounds which clear when she coughs - Cardiovascular Cardiovascular exam: Present: irregular rhythm, +S1, +S2, systolic murmur - GI/Abdominal GI/Abdominal exam: Present: normal bowel sounds, soft, no peritoneal signs. Absent: distended, tenderness - Extremities Exam Extremities exam: Present: pedal edema (1= pitting pedal edema), warm, radial pulses palpable and symetrical. Absent: calf tenderness, cyanotic - Neurological Exam Neurological exam: Present: alert, CN II-XII intact, oriented X3, no focal deficits. Absent: pronater drift, facial droop, speech deficit - Skin Skin exam: Present: dry Internal Medicine: Result - Labs CBC & Chem 7: 10/11/16 03:50 10/11/16 03:50 Labs: Short CBC 10/11/16 Range/Units 03:50 WBC 6.6 (4.3-11.1) K/mcL Hgb 9.1 L (11.5-15.4) g/dL Hct 33.0 L (35.3-44.9) % Plt Count 210 (140-400) K/mcL Neutrophils # 5.1 (1.6-8.9) K/mcL BMP 10/11/16 03:50 Sodium 139 Potassium 3.2 L Chloride 98 Carbon Dioxide 33 H BUN 49 H Creatinine 0.88 Glucose 143 H Calcium 9.1 - ABG Interpretation ABG results: PT/INR, D-dimer PT 15.6 Seconds (9.4-12.1) H 10/11/16 03:50 - VTE Documentation of Mechanical Device: Graduated compression elastic hosiery Consult Discharge Plan - Plan Referrals: Geetha Maharaj CNP [Primary Care Provider] - 10/13/16 1:00 pm
[2016-10-11] MEDS ORDERED: Furosemide 20 MG/2 ML VIAL IVP ONE (13:56)
[2016-10-11] MEDS ORDERED: *HR* Warfarin 10 MG TABLET PO SCH (18:00)
[2016-10-11] MEDS ORDERED: *HR* Warfarin 10 MG TABLET PO ONE (18:00)
[2016-10-11] MEDS: rOPINIRole 1 MG TABLET PO SCH (20:07)
[2016-10-11] MEDS: Gabapentin 300 MG CAPSULE PO SCH (20:07)
[2016-10-11] MEDS: Sennosides 8.6 MG TABLET PO SCH (20:08)
[2016-10-12 04:19] LABS: INR 1.8; Prothrombin Time 19.8 Seconds (9.4-12.1)
[2016-10-12 04:27] LABS: BUN/Creatinine Ratio 48 (6-26); Blood Urea Nitrogen 44 mg/dL (7-20); Calcium 8.9 mg/dL (8.6-10.8); Carbon Dioxide 32 mEq/L (19-29); Chloride 98 mEq/L (98-109); Glucose 129 mg/dL (70-99); Osmolality,Calculated 297 (280-300); Potassium 3.6 mEq/L (3.5-4.5); Sodium 137 mEq/L (136-145); eGFR For African Americans > 60 (> 60); eGFR For Non-African Americans > 60 (> 60)
[2016-10-12] MEDS: Insulin LISPRO 300 UNITS/3 ML VIAL SQ SCH ×2 (08:02→11:39)
[2016-10-12] MEDS: Aspirin Enteric Coated 81 MG Tablet PO SCH (08:02)
[2016-10-12] MEDS: Diltiazem CD (24hr) 180 MG CAPSULE PO SCH (08:02)
[2016-10-12] MEDS: Magnesium Oxide 400 MG TABLET PO SCH (08:03)
[2016-10-12] MEDS: Isosorbide MONOnitrate (24 HR) 30 MG TAB.ER.24H PO SCH (08:03)
[2016-10-12] MEDS: ALPRAZolam 1 MG TABLET PO SCH (08:04)
[2016-10-12 11:31] VITALS: BP 104/57
--- NOTE | 2016-10-12 13:20 | Discharge Summary ---
Date of Encounter: 10/12/16 Time of Encounter: 12:30 - Discharge Diagnosis (1) CHF exacerbation Priority: Primary Status: Acute Qualifiers: Congestive heart failure type: diastolic Qualified Code(s): I50.33 - Acute on chronic diastolic (congestive) heart failure (2) Atrial fibrillation Priority: Secondary Status: Chronic Qualifiers: Atrial fibrillation type: persistent Qualified Code(s): I48.1 - Persistent atrial fibrillation (3) CAD (coronary artery disease) Priority: Secondary Status: Chronic Qualifiers: Coronary Disease-Associated Artery/Lesion type: unspecified vessel or lesion type [place] vs. transplanted heart: [place] heart Associated angina: angina presence unspecified Qualified Code(s): I25.10 - Atherosclerotic heart disease of [place] coronary artery without angina pectoris (4) COPD (chronic obstructive pulmonary disease) Priority: Secondary Status: Chronic Qualifiers: COPD type: unspecified COPD Qualified Code(s): J44.9 - Chronic obstructive pulmonary disease, unspecified (5) Diabetes Priority: Secondary Status: Chronic Qualifiers: Diabetes mellitus type: type 2 Diabetes mellitus complication status: with unspecified complications Diabetes mellitus intermediate manager insulin use: without residential use Qualified Code(s): E11.8 - Type 2 diabetes mellitus with unspecified complications (6) Hypothyroidism Priority: Secondary Status: Chronic Qualifiers: Hypothyroidism type: acquired Qualified Code(s): E03.9 - Hypothyroidism, unspecified (7) Physical deconditioning Priority: Primary Status: Acute (8) Stage II pressure ulcer Priority: Secondary Status: Chronic Qualifiers: Pressure ulcer location: buttock Laterality: unspecified laterality Qualified Code(s): L89.302 - Pressure ulcer of unspecified buttock, stage 2 - Discharge Medications Prescriptions: Furosemide [Lasix] 60 mg PO BID #60 tablet Home Medications: Alprazolam [Xanax] 1 mg PO TID 11/29/14 [History] Bupropion HCl [Wellbutrin] 75 mg PO BID 11/29/14 [History] Pravastatin Sodium [Pravachol] 40 mg PO HS 11/29/14 [History] Benzonatate [Tessalon] 100 mg PO TID PRN 11/17/15 [History] Multivitamin [Multi-Day Vitamins] 1 tab PO DAILY 11/17/15 [History] Ondansetron [Zofran] 8 mg PO Q6H PRN 11/17/15 [History] Potassium Chloride [K-Tab ER] 10 meq PO BID 11/17/15 [History] Sennosides [Senna] 8.6 mg PO HS 11/17/15 [History] Gabapentin [Neurontin] 300 mg PO HS 07/19/16 [History] Isosorbide MONOnitrate (24 HR) [Imdur] 15 mg PO DAILY 07/19/16 [History] Levothyroxine [Synthroid] 75 mcg PO 0630 07/19/16 [History] OxyCODONE Immed Rel [Roxicodone 5 MG] 10 mg PO Q6HR PRN 07/19/16 [History] Warfarin [Coumadin] 7.5 mg PO SUTUWETHFRSA 07/19/16 [History] rOPINIRole [Requip] 1 mg PO HS 07/19/16 [History] Aspirin Enteric Coated [Aspirin EC] 81 mg PO DAILY tablet. 07/22/16 [Rx] Warfarin [Coumadin] 10 mg PO MO 08/24/16 [History] Diltiazem CD (24hr) [Cardizem CD] 180 mg PO DAILY #30 cap.er.24h 08/26/16 [Rx] Metoprolol [Lopressor] 12.5 mg PO BID #30 tablet 08/26/16 [Rx] Docusate [Colace] 100 mg PO BID #60 capsule 09/18/16 [Rx] Ferrous Sulfate 325 mg PO BIDWM #60 tablet 09/18/16 [Rx] Furosemide [Lasix] 60 mg PO BID #60 tablet 10/12/16 [Rx] Allergies/Adverse Reactions: Allergies ciprofloxacin [From Cipro] Allergy (Verified 08/24/16 19:08) Hives acetaminophen [From Percocet] Adverse Reaction (Verified 08/24/16 19:08) Gastrointestinal Upset Date of admission: 10/07/16 17:07 Primary care physician: Geetha Maharaj CNP Consults: 10/07/16 17:20 Consult to Cardiology [CONS] Routine Comment: Consulting Provider: Cardiology Nona Reason for Consult: CHF, Afib RVR, elevated trop Call Completed: No 10/07/16 19:02 Consult to Auto Washer [CONS] Routine Reason for SW Consult: Oxygen/Financial concerns 10/08/16 12:19 Consult to PICC team [Consult to Invasive Line Access Team] [CONS] Routine Reason for Consult: Limited access Line Type: EPIV Discharging clinician: Roopa Parker Anticipated date of discharge: 10/12/16 - Patient Status Disposition: Home, Self-Care Condition: Good Functional capacity at discharge: uses cane/walker Overall status at discharge: patient is back to baseline - Discharge Instructions Follow Up With: Geetha Maharaj CNP [Primary Care Provider] - 10/13/16 1:00 pm Additional Instructions: Please follow up with your primary care physician and glass etcher within five days after your discharge from the hospital. Please follow up with your coumadin clinic as per your outpatient schedule Your home dose of Lasix has been increased to 60mg twice a day. Please take this medication as prescribed and inform your primary care physician and glass etcher of this change. Please closely monitor your blood pressure. If your SBP<110, hold your Metoprolol dosing. Please inform your PCP if your BP readings are consistently low. Your PCP will adjust your home medications. Resume all other medications as prescribed by your primary care physician. - Diet and Activity Activity: wear oxygen at all times Diet: diabetic diet, low salt diet Hospital course: Ms. Monte is a 70 year old female PMH of CHFpEF, s/p MVR, AVR, Afib, PCM/AICD on Coumadin who was admitted for management of acute respiratory failure secondary to CHF decompensation. Pt was started on IV diuresis to which she responded appropriately.She reports of having home oxygen that she only uses at bedtime and on as needed basis during the day. At this time she is hemodynamically stable and wishes to be discharged to home. She states she ambulates well with cane and has help at home. She was evaluated by physical therapy and no further intervention was recommended. Patient will be discharged to home with follow up with PCP and cardiology after discharge. She is to continue her follow up with coumadin clinic. Pt demonstrates understanding of her diagnosis and agrees with the discharge care and plan. - Time Spent with Patient Total time spent providing and/or coordinating discharge services: Greater than 30 minutes - Constitutional Vitals: Temp Pulse Resp BP Pulse Ox 97.7 F 79 17 104/57 94 10/12/16 11:30 10/12/16 11:30 10/12/16 11:30 10/12/16 11:30 10/12/16 11:30 General appearance: Present: A&O X 3, pleasant, no acute distress - Head Head exam: Present: atraumatic, normocephalic - Eye Eye exam: Present: conjuntiva pink, sclera anicteric - Respiratory Respiratory exam: Absent: respiratory distress, wheezes - Cardiovascular Cardiovascular exam: Present: RRR, +S1, +S2. Absent: diastolic murmur, gallop, rubs, systolic murmur - GI/Abdominal GI/Abdominal exam: Present: normal bowel sounds, soft, no peritoneal signs. Absent: distended, tenderness - Extremities Exam Extremities exam: Present: pedal edema, warm, radial pulses palpable and symetrical. Absent: calf tenderness - Neurological Exam Neurological exam: Present: alert, oriented X3 - Psychiatric Psychiatric exam: Present: normal affect, normal mood - VTE Documentation of Mechanical Device: Graduated compression elastic hosiery
[2016-10-12] MEDS ORDERED: Aminoglycoside Consult 1 EACH MC ONE (14:09)
[2016-10-12] MEDS ORDERED: *HR* Warfarin 7.5 MG TABLET PO ONE (18:00)
== END 2016-10-12 14:10 | disposition home or self-care (01) | DRG 291 ==
LOC: EMEROO 12:29 → 3BNU 12:29 → SUATTDRO 17:07 → 3BNU 17:45
PROVIDERS: ADMIT Nurse Practitioner Acute Care; ATTEND Internal Medicine